=== PATIENT | female | born 2005 | race Caucasian/White ===

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

== ENCOUNTER 2025-01-10 20:09 | Emergency (ER) | payer OTHER, SELFPAY ==
--- OUTSIDE RECORDS SUMMARY | 2024-09-21 04:00 | XMS_ITS | Continuity of Care Document ---
Author Organization [employer] Address [address] [place] [address] Phone Care Team Providers Care Concrete Floor Installer Name Role Phone Malini Beal PT Unavailable Unavailable Procedures Procedure Date Therapeutic Activities Neuromuscular Re-Ed Therapeutic Exercise Manual Therapy Therapeutic Activities Neuromuscular Re-Ed Therapeutic Exercise Manual Therapy Therapeutic Activities Neuromuscular Re-Ed Therapeutic Exercise Dry Needling 1-2 muscles Therapeutic Activities Neuromuscular Re-Ed Therapeutic Exercise Manual Therapy Therapeutic Activities Neuromuscular Re-Ed Therapeutic Exercise Manual Therapy Dry Needling 1-2 muscles Therapeutic Activities Neuromuscular Re-Ed Therapeutic Exercise Manual Therapy Therapeutic Activities Neuromuscular Re-Ed Manual Therapy Therapeutic Activities Neuromuscular Re-Ed Therapeutic Exercise Manual Therapy Dry Needling 1-2 muscles Therapeutic Activities Neuromuscular Re-Ed Therapeutic Exercise Manual Therapy PT Evaluation Low Complexity Therapeutic Exercise Advance Directives Directive Yes / No Effective Date File Name No Information Encounters Encounter Description Practice Location Reason(s) For Visit Diagnoses Date Provider Providers Copied on Encounter [facility], [address] [address], [place], [place], [id number], tel:[phone] [place] No Information Ronich Malini. . Referring Provider: Access Direct. [facility], [address] [address], [place], [place], [id number], tel:[phone] [place] No Information Gleich Malini. . Referring Provider: Access Direct. [facility], [address], [place], [place], [id number], tel:[phone] [place] No Information Gleich Malini. . Referring Provider: Access Direct. [facility], [address], [place], [place], [id number], tel:[phone] [place] No Information Gleich Malini. . Referring Provider: Access Direct. [facility], [address] [address], [place], [place], [id number], tel:[phone] [place] No Information Gleich Malini. . Referring Provider: Access Direct. [facility], [address] [facility], [place], [place], [id number], tel:[phone] [place] No Information Gleich Malini. . Referring Provider: Access Direct. [facility], [address], [place], [place], [id number], tel:[phone] [place] No Information Gleich Malini. . Referring Provider: [facility] Direct. [facility], [address] [address], [place], [place], [id number], tel:[phone] [place] No Information Emigdio Nayak. . Referring Provider: [facility] Direct. [facility], [address] [address], [place], [place], [id number], tel:[phone] [place] No Information Emigdio Nayak. . Referring Provider: Access Direct. [facility], [address] [address], [place], [place], [id number], tel:[phone] [place] No Information Emigdio Nayak. . Referring Provider: Access Direct. Family History Family Member Type Diagnosis Age At Onset No Information Payers Payer name Insurance type Covered green party ID Mckaycj abdirahmanmesha(s) Rickchristiansilvia [id number] Social History Type Description Quantity Date Captured Comments Sex Female Smoking Status No Information Chief Complaint And Reason For Visit No Information Reason For Referral Reason For Referral No Information History Of Present Illness Encounter Date Complaint History Of Prese nt Illness No Information Functional Status Date Functional Assessmen t No Information Instructions Date Instruction Additional Infor mation No Information Assessments Type Assessment Date No Information Patient Care Teams Name Effective Dates (start - stop) Status Members No Information
--- OUTSIDE RECORDS SUMMARY | 2024-09-21 04:00 | XMS_ITS | Continuity of Care Document ---
Author Organization [facility] Address [address] [place] [address] Phone Care Team Providers Care Glue Drier Operator Name Role Phone Malini Beal PT Unavailable [...] Diagnoses Date Provider Providers Copied on Encounter [facility], [address] [address], [place], [place], [id number], tel:[phone] [place] No Information Ronich Malini. . Referring Provider: Access Direct. [facility], [address] [address], [place], [place], [id number], tel:[phone] [place] No Information Gleich Malini. . Referring Provider: Access Direct. [facility], [address], [place], [place], [id number], tel:[phone] [place] No Information Gleich Malini. . Referring Provider: Access Direct. [facility], [address], [place], [place], [id number], tel:[phone] [place] No Information Gleich Malini. . Referring Provider: Access Direct. [facility], [address] [address], [place], [place], [id number], tel:[phone] [place] No Information Gleich Malini. . Referring Provider: Access Direct. [facility], [address] [facility], [place], [place], [id number], tel:[phone] [place] No Information Gleich Malini. . Referring Provider: Access Direct. [facility], [address], [place], [place], [id number], tel:[phone] [place] No Information Gleich Malini. . Referring Provider: [facility] Direct. [facility], [address] [address], [place], [place], [id number], tel:[phone] [place] No Information Emigdio Nayak. . Referring Provider: Access Direct. [facility], [address] [address], [place], [place], [id number], tel:[phone] [place] No Information Emigdio Nayak. . Referring Provider: Access Direct. [facility], [address] [address], [place], [place], [id number], tel:[phone] [place] No Information Emigdio Nayak. . Referring Provider: Access Direct. Family History Family Member Type Diagnosis Age At Onset No Information Payers Payer name Insurance type Covered constitution party ID Mckaycj abdirahmanmesha(s) Rickchristiansilvia [id number] Social History Type Description Quantity Date Captured [...]
--- OUTSIDE RECORDS SUMMARY | 2025-01-09 13:15 | XMS_ITS | Encounter Summary ---
Author Organization [facility] Healthcare Address [address] [place] [address] Care Team Providers Care Qualified Craft Worker Electrician Name Role Phone No, Physician Primary Care Provider [phone] Lisa Roth Unavailable [phone] Reason for Visit * Reason Comments PT Treatment * Consultation (Routine) - Authorized Specialty Diagnoses / Procedures Referred By Ella t Referred To Contact Physical Therapy Diagnoses Tear of right acetabular labrum, initial encounter Gael Lynch MD [address] [place] [address] DR [address] [address] Phone: tel: fax: [facility] [address] [place] [address] Phone: tel: fax: Referral ID Status Reason Start Date Expiration Date Visits Requested Visits Authorized [id number] Authorized Specialty Services Required 10/19/2024 11/18/2025 18 60 Encounter Details Date Type Department Care Team (Late st Contact Info) Description 01/09/2025 1:15 PM CDT Therapy [facility] [address] [place] [phone] Selena Hutchison, JOSLYN Tear of acetabular labrum, right, subsequent encounter (Primary Dx) Social History Tobacco Use Types Packs/Day Years Used Date Smoking Tobacco: Never Smokeless Tobacco: Never Alcohol Use Standard Drinks/Week Comments Never 0 (1 standard drink = 0.6 oz pur e alcohol) AUDIT-C Answer Date Recorded Q1: How often do you have a drink containing alcohol? Never 12/13/2024 Q2: How many drinks containi ng alcohol do you have on a typical day when you are drinking? Patient does not drink Q3: How often do you have si x or more drinks on one occasion? Never 12/13/2024 Personal Safety Answer Date Recorded Have you ever been in or are you currently in a harmful physical or emotional relationship or is someone making you feel afraid or unsafe? Denies 10/31/2024 Comments No Sex and Gender Information Value Date Recorded Sex Assigned at Not on file Legal Sex Female 3:41 PM CDT Gender Identity Female 10/04/2024 3:42 PM CDT Sexual Orientation Not on file documented as of this encounter Progress Notes * Selena Hutchison, PT - 01/09/2025 1:15 PM CDT PT Treatment Name: Alyssa Parker Date of : 2005 Age: 19 y.o. Diagnosis: (S73.191D) Tear of acetabular labrum, right, subsequent encounter (primary encounter diagnosis) Referring Provider: Gael Lynch MD Order Date: 10/19/24 POC: Start 11/03/2024 End 11/03/2025 Next Progress Note: 6 of 12 visits (adjusted from previous measures from RTD) RTD 01/24/25 Date of Surgery: 10/31/24 - RIGHT HIP ARTHROSCOPY WITH LABRAL REPAIR AND OSTEOCHONDROPLASTY Date of service: 01/09/2025 SUBJECTIVE Patient arrived with independently. Alyssa reports continued report of mild anterior hip tightness but overall doing well and no increased pain. Pain: The Verbal Numerical Rating Scale is the most commonly used tool to assess pain intensity in children older than 6 years, and adults of any age. Ratin/10 Precautions: See Post-Op Protocol OBJECTIVE / ASSESSMENT Treatment Provided: - Warm up circuit x 2: - 12 lonnie elliptical, lv 1 - Quadruped self mobilization with rockback posterior pull and lateral pull x 5 rounds R hip - Quadruped 3 way hip superset 8 reps clockwise rotation (CARs) + donkey kick + fire hydrant - 1/2 kneeling 8 lbs weight pass x 5 (B) - Step up + Row 10 lbs x 8 (B) - Standing march with hands on wall - npted to avoid terminal hip extension - regressed to IASTM to right anterior thigh with Jairon test stretching - Repeat standing march with hands on wall and cueing for gluteal and core recruitment - Plank on knees 3 x 30 sec - Bridge with hip ADD on 8 inch box x 10 reps - Standing eccentric right march (using hands to raise to 45 deg hip flexion) - Ice and IFC x 10 mins Goal Progress: The following goals are recommended based on the results of this evaluation and may be modified or updated by the treating therapist. Status/Progress: To be met by: The patient will safely ambulate independently for 15 minutes with normalized gait pattern in orderto participate in school and community ambulation. Excellent Progress 12/16/2024 The patient will demonstrate hip ROM within 5 degrees of contralateral limb in order to ambulate, negotiate stairs and squat without limitations and pain. Excellent Progress 12/30/2024 The patient will demonstrate bilateral hip strength to 4+/5 in order to perform stairs. Usulpeowxvt77/15/2025 The patient will complete single leg hop tests with less than a 10% deficit in limb symmetry in order to jump and participate in recreational play activities without limitations and without pain. Progressing 07/05/2025 The patient will demonstrate Y-balance test with a appropriate reach symmetry and composite reach score of greater than 94% in order to tolerate running progression as allowed by post operative protocol. Progressing 03/06/2025 The patient will demonstrate FMS without 0s or asymmetries to improved tolerance to weight trainingas required for return to sport. Progressing 03/06/2025 The patient will report < 10% dysfunction per SUZI for improved tolerance to ADLs. Progressing 05/07/2025 Assessment: Alyssa continues to have soft tissue restriction at her anterior hip healed incision sites. She is challenged with hip neutral extension/posterior pelvic tilt due to some anterior hip tightness or protective spasm. This improves slightly with IASTM techniques and loading eccentrically. Given this continued complaint, she will continue to benefit from skilled physical therapy to improve her tolerance to anterior chain loading as well as her gait patterning. PLAN Plan of Care: Skilled therapy 2 times per week for 12 weeks with plans to taper as needed for 8 months. Home Exercise Program: Yes Access Code: [email or web address] URL: [email or web address] Date: 12/30/2024 Prepared by: Isaías Shultz Program Notes Squat with resistance around thighs: Band around waist pulling you back Exercises - Quadruped Rocking Backward - 1-2 x daily - 7 x weekly - 10 reps - Modified Jairon Stretch - 1-2 x daily - 7 x weekly - 3 sets - 10 breaths hold - Half Kneel Row - 5 x weekly - 2 sets - 10 reps - Step Up - 5 x weekly - 2 sets - 10 reps - Squat with Resistance at Thighs - 7 x weekly - 3 sets - 10 reps - Supine Bridge with Heels on Emirati Ball and Knees Bent - 5 x weekly - 2 sets - 10 reps - Side Plank with Clam - 5 x weekly - 2 sets - 10 reps - Bird Dog - 5 x weekly - 2 sets - 8 reps - Posterior resisted body weight squat x 10 (9 lbs posterior pull) - Split squat mid-range x 10 Accessory: glut press in prone Education: Topic: HEP, Gait mechanics Learner(s) Name(s): n/a Relation to patient: n/a Barriers to Learning: No Barriers Is Neurology Physician Assistant Required: No How does the Learner prefer to learn new concepts: Explanation Readiness to Learn: Acceptance Today's teaching method: explanation, handout, demonstration Response to learning: Verbalized understanding This patient's plan of care and status was discussed with the PT/LABOR RELATIONS ANALYST: no If this is the patient's last visit this will serve as a discharge summary. Start Time: 1324 End Time: 1419 Total Time: 55 minutes Therapeutic Procedures: 45 minutes E-Stim: 10 minutes Selena Hutchison PT, DPT documented in this encounter Plan of Treatment Not on file documented as of this encounter Visit Diagnoses Diagnosis Tear of acetabular labrum, right, subsequent encounter- Primary documented in this encounter Care Teams Qualified Craft Worker Electrician Relationship Specialty Start Date End Date No, Physician PCP - General 10/04/24 Lisa Roth PA [address] [place] [address] [address] [place] [address] Physician Farm Contractor Orthopedic Surgery 10/31/24 documented as of this encounter
--- OUTSIDE RECORDS SUMMARY | 2025-01-09 13:15 | XMS_ITS | Encounter Summary ---
Author Organization [facility] Healthcare Address [address] [place] [address] Care Team Providers Care Marker Delivery Name Role Phone No, Physician Primary Care Provider [phone] Lisa Roth Unavailable [phone] Reason for Visit * Reason Comments PT Treatment * Consultation (Routine) - Authorized Specialty Diagnoses / Procedures Referred By Ella t Referred To Contact Physical Therapy Diagnoses Tear of right acetabular labrum, initial encounter Gael Lynch MD [address] [place] [address] DR [address] B [address] [address] Phone: tel: fax: [facility] [address] [place] [address] Phone: tel: fax: Referral ID Status Reason Start Date Expiration Date Visits Requested Visits Authorized [id number] Authorized Specialty Services Required 10/19/2024 11/18/2025 18 60 Encounter Details Date Type Department Care Team (Late st Contact Info) Description 01/09/2025 1:15 PM CDT Therapy [facility] [address] [place] [phone] Selena Hutchison, JOSLYN Tear of acetabular [...] to 4+/5 in order to perform stairs. Ovwrcalvost61/15/2025 The patient will complete single leg hop [...] Exercise Program: Yes Access Code: [email or web address] URL: [email or web address] Date: 12/30/2024 Prepared by: Isaías Shultz Program [...] reps - Supine Bridge with Heels on [place]ib[place] Ball and Knees Bent - 5 x [...] n/a Barriers to Learning: No Barriers Is Supervisor Soakers Required: No How does the Learner prefer to learn new concepts: Explanation Readiness to Learn: Acceptance Today's teaching method: explanation, handout, demonstration Response to learning: Verbalized understanding This patient's plan of care and status was discussed with the PT/RACKMAN: no If this is the patient's last [...] Primary documented in this encounter Care Teams Marker Delivery Relationship Specialty Start Date End Date No, Physician PCP - General 10/04/24 Lisa Roth PA [address] [place] [address] [address] [place] [address] Physician Rn Concurrent Review Orthopedic Surgery 10/31/24 documented as of this encounter
--- NOTE | ~2025-01-10 | CT_ITS ---
CT abdomen pelvis w con INDICATION:LLQ abdominal pain . COMPARISON: None. TECHNIQUE: Axial images of the abdomen and pelvis were obtained following infusion of 100 mL Isovue 300. Dose optimization technique was utilized. FINDINGS: The lung bases are clear. The liver parenchyma is unremarkable. No intrahepatic mass or ductal dilatation is evident. The gallbladder is unremarkable. The pancreas and spleen are normal in appearance. The adrenal glands are symmetric in size. The kidneys demonstrate symmetric uptake and excretion of contrast. No cystic mass is evident. There is no solid mass. There is no hydronephrosis. Evaluation of the stomach and bowel loops are limited due to lack of oral contrast. Fecal load throughout the colon suggestive of constipation. Appendix is not visualized. Correlate clinically to exclude appendicitis. The bladder and rectum are normal. There is a 6.6 x 4 cm left ovarian cyst. No free intraperitoneal fluid or air is evident. There is no significant retroperitoneal lymphadenopathy. The aorta, visceral vessels and renal arteries demonstrate normal caliber and patency. The lower thoracic and lumbar vertebrae are in normal alignment. IMPRESSION: Marked constipation. Left ovarian cyst measures 6.6 x [address] scans at this facility are performed using low dose modulation techniques as appropriate to perform exam including the following: automated exposure control; use of iterative reconstruction technique; adjustment of the mA and/or kV according to patient size (this includes techniques or standardized protocols for targeted exams where dose is matched to indication/reason for exam). Reviewed, dictated and finalized at location S. IMPRESSION: Marked constipation. Left ovarian cyst measures 6.6 x [address] scans at this facility are performed using low dose modulation techniqu es as appropriate to perform exam including the following: automated exposure c ontrol; use of iterative reconstruction technique; adjustment of the mA and/or kV according to patient size (this includes techniques or standardized protocol s for targeted exams where dose is matched to indication/reason for exam).
[2025-01-10 20:14] VITALS: BP 140/72; PULSE 102; RESP 16; TEMP 36.7; O2SAT 100
--- OUTSIDE RECORDS SUMMARY | 2025-01-10 20:15 | XMS_ITS | Encounter Summary ---
Author Organization [facility] Address [address] [place] [address] Care Team Providers Care Automotive Software Engineer Name Role Phone Unavailable Primary Care Provider Unavailabl e Encounter Details Date Type Department Care Team (Late st Contact Info) Description 12/28/2006 [place] Conversion Encounter [facility] Social History Tobacco Use Types Packs/Day Years Used Date Smoking Tobacco: Never Assessed Comments Unknown Sex and Gender Information Value Date Recorded Sex Assigned at Not on file Legal Sex Female 8:24 PM CDT Gender Identity Not on file Sexual Orientation Not on file documented as of this encounter Progress Notes * CONVERSION, NESTOR - 09/02/2011 6:09 AM CDT PATIENT'S HOME PHONE: PATIENT'S WORK PHONE: DATE: 12/28/2006. TIME OF CALL: 04:07:49 PM. PATIENT GENERATED CALL: CALL FROM: Patient's mother. 16M/NKDA??? PT BEGAN YESTERDAY WITH A DRY COUGH, 'NICKI TO GET OUT', NO CHEST RATTLE OR WHEEZE....TEMP YESTERDAY WAS 102(?)), TREATING W/ TYLENOL/MOTRIN.....SLIGHT TEMP TODAY, EATING, DRINKING AND SLEEPING OK......ADVISED TO CONTINUE WITH LIQUIDS AND POPSCICLES AND SHOULD CHILD STILL BE ILL IN THE AM OR WORSE, CALL .... The call was taken by Tatiana Cline. Electronically Signed by: BLAKE Vargas on Thursday, December 28, 2006 Received for:ALLSCRIPTS TEST Sep 02 2011 6:09AM Central Standard Time documented in this encounter Plan of Treatment Not on file documented as of this encounter Visit Diagnoses Not on filedocumented in this encounter
--- OUTSIDE RECORDS SUMMARY | 2025-01-10 20:15 | XMS_ITS | Encounter Summary ---
Author Organization [facility] Address [address] [place] [address] Care Team Providers Care Retail Clerk Name Role Phone Unavailable Primary Care Provider Unavailabl e Encounter Details Date Type Department Care Team (Late st Contact Info) Description 08/13/2006 [place] Conversion Encounter [facility] Social History Tobacco Use Types Packs/Day Years Used Date Smoking Tobacco: Never Assessed Comments Unknown Sex and Gender Information Value Date Recorded Sex Assigned at Not on file Legal Sex Female 8:24 PM CDT Gender Identity Not on file Sexual Orientation Not on file documented as of this encounter Progress Notes * CONVERSION, MERIDIAN - 09/02/2011 6:09 AM CDT ACCOMPANIED BY: Mother. The patient presents for a 12 month - well child exam. CURRENT HEALTH HABITS: DIET: The child is being fed Nestle Good Start Formula, the child continues to use a bottle to drink, the child is starting to use a cup to drink. Juice, diluted 50/50, is occasionally part of the child's liquid diet. The child's solid food diet includes table food, fruits, vegetables. no meats BOWELS: Normal appearing stools. The child has stools 2-3 times per day. URINATION: Has at least 5-6 wet diaper changes per day. SLEEP: The sleeps in a crib. The child sleeps 11 hours at night. The child takes naps, The child naps for 1 1/2 hours. OTHER: The family feels that there are no visual or hearing problems. DEVELOPMENTAL/BEHAVIORAL: (DELAYED, BELOW 12 MONTH LEVEL): (GROSS MOTOR) UNABLE TO TAKE STEPS ALONE, (DELAYED GROSS MOTOR) UNABLE TO WALK, EVEN WITH HELP, (DELAYED LANGUAGE) UNABLE TO SPEAK TWO MEANINGFUL WORDS. ALLERGIES: NKDA MEDICATIONS: NO MEDS, status: NEW HISTORY, 2005. VITALS: WEIGHT: [id number]. LENGTH: 30 1/4in. HEAD CIRCUMFERENCE: 49.5cm. CHIEF COMPLAINT: The has ear symptoms, runny nose. ear pulling Lt ear The patient's screening for lead and TB has been updated and the patient is still not at risk for either. The patient was checked in by Neena Dejesus CMA. GENERAL: Healthy appearing, alert, normally nourished, developmentally normal and in no acute distress. PHYSICAL EXAMINATION: GEN: Alert, appropriate for age. EYES: No discharge, conjunctivae clear. ENMT: Tympanic membranes clear. Hearing normal. Pharynx clear. Fair dentition. NECK: Supple, without lymphadenopathy, no thyroid enlargement. RESP: Clear to auscultation. Normal respiratory effort. CV: Regular rate and rhythm, no murmur. CHEST/BREAST: Normal to inspection and palpation. GI: Soft, non-tender, without masses. Bowel sounds active. : Normal genitalia. Normal femoral pulses. LYMPHATICS: No lymphadenopathy. M/S: No joint or bone abnormalities seen. No muscle weakness or scoliosis. SKIN:No rashes, normal color. NEURO: No meningeal findings. Reflexes are normal. PSYCHIATRIC: Mood and affect appropriate for age. Upper cuspids are erupting. ASSESSMENT/PLAN: V20.2-ROUTINE INFANT OR CHILD HEALTH CHECK 12 MONTH EXAM ASSESSMENT: Patient demonstrates normal rate of growth. The patient demonstrates normal developmentfor age. The patient is up to date on immunizations. IMMUNIZATION ORDER: Prevnar, Proquad (MMR & Varivax). IMMUNIZATIONS: Measles, Mumps, Rubella, 0.5, MILLILITERS, SUBCUTANEOUS INJECTION, Right Thigh, given by fabian on 08/13/2006; consent form signed, literature given; Varicella (Chicken Pox), 0.5, MILLILITERS, SUBCUTANEOUS INJECTION, Right Thigh, given by fabian on 08/13/2006; consent form signed, literature given; PREVNAR, 0.5, MILLILITERS, INTRAMUSCULAR INJECTION, Left Thigh, given by fabian on 08/13/2006; consent form signed, literature given; ANTICIPATORY CARE: The parent was advised to encouraging cup use and begin weaning child from the bottle, the normal decrease in food intake (finicky eater), table foods, appropriate calcium intake. Return for 15 month well baby visit. Electronically Signed by: Kell Woods M.D. on July Received for:ALLSCRIPTS TEST Sep 02 2011 6:09AM Central Standard Time documented in this encounter Plan of Treatment Not on file documented as of this encounter Visit Diagnoses Not on filedocumented in this encounter
--- OUTSIDE RECORDS SUMMARY | 2025-01-10 20:15 | XMS_ITS | Encounter Summary ---
Author Organization [facility] Address [address] [place] [address] Care Team Providers Care Border Guard Name Role Phone Unavailable Primary Care Provider Unavailabl e Encounter Details Date Type Department Care Team (Late st Contact Info) Description 09/11/2007 [place] Conversion Encounter [facility] Social History [...] CONVERSION, MERIDIAN - 09/02/2011 6:09 AM CDT The patient is accompanied by mother. The patient presents for an illness exam. CHIEF COMPLAINT: COUGH/COLD SXS: The patient has been having nasal congestion, The patient has had a cough for 1 week. SORE THROAT: The patient has had a sore throat for less than 1 day. ALLERGIES: NKDA MEDICATIONS: NO MEDS, status: NEW HISTORY, 2005. VITAL SIGNS: VS-TEMPERATURE: 97.4??f Axillary TESTS IN OFFICE Rapid Strep Antigen is: Pending. The patient was checked in by Lulu Brunner RN. GENERAL: Healthy appearing, alert, normally nourished, developmentally normal and in no acute distress. PHYSICAL EXAM: EYES: CONJUNCTIVAE/LIDS: Conjunctivae and lids appear normal. PUPILS: Pupils equal and normally reactive to light and accommodation. EARS, NOSE, MOUTH AND THROAT: EXTERNAL/ EARS AND NOSE: Overall appearance normal with no scars, lesions or masses. EARS: Tympanic membranes shiny without retraction. Canals unremarkable. Hearing grossly normal. NOSE: No abnormality of the nose or sinuses is noted. ORAL: MODERATE ERYTHEMATOUS OROPHARYNX WITH MODERATE EXUDATE. RESPIRATORY: Clear to auscultation bilaterally. Normal respiratory effort. LYMPHATICS: No lymphadenopathy in the neck, axillae, or groin. ASSESSMENT/PLAN: 463-ACUTE TONSILLITIS ASSESSMENT: MEDICATIONS: AMOXICILLIN ORAL SUSPENSION WHEN RECONSTITUTED 400 MG/5ML, 1.5 TSP TWICE A DAY FOR 10 DAYS, 10 Duration/Days Supply, status: NEW PRESCRIPTION, 09/11/2007. Electronically Signed by: Mehdi Castro M.D. on Tuesday, September 11, 2007 Received for:ALLSCRIPTS TEST Sep 02 2011 6:09AM Central Standard Time * CONVERSION, DIDITANNA - 09/02/2011 6:09 AM CDT ACCOMPANIED BY: Mother. The patient presents for a 2 year - well child exam. CURRENT HEALTH HABITS: DIET: The toddler uses a cup to drink, 2% milk, to 8 ounces/day. Diluted juice is also part of the toddler's daily regular liquid diet. The toddler's regular diet is table food. BOWELS: Normal appearing stools. The child has daily stools. URINATION: Has at least 5-6 diaper changes per day, with several soaked in colorless urine. SLEEP: The sleeps in a crib. The child sleeps 11 hours at night. The child takes naps once aday, The child naps for 1 1/2 hours. OTHER: The family feels that there are no visual or hearing problems. DEVELOPMENTAL/BEHAVIORAL: (NORMAL FOR 24 MONTH LEVEL): (SOCIAL) Brushes teeth; feeds doll; feeds self well with spoon and fork; imitates others; names friend; plays tag; puts on and removes clothing;washes and drys hands. (FINE MOTOR) Exhibits bladder and bowel control; dumps raisins from bottle spontaneously; towers 4 to 6 cubes. (LANGUAGE) Vocabulary is approximately 20 words; can combine words to make a simple phrase; names 6 body parts; points to and names pictures; responds to two-part verbal commands. (GROSS MOTOR) Jumps; kicks a ball; can climb and descend steps alone; throws overhanded. ALLERGIES: NKDA MEDICATIONS: NO MEDS, status: NEW HISTORY, 2005. VITALS: WEIGHT: [id number]. LENGTH: 35 3/4in. HEAD CIRCUMFERENCE: 52cm. CHIEF COMPLAINT: No issues or concerns were raised this visit. The patient was checked in by Krissy Segundo CMA. PHYSICAL EXAM (NORMAL FINDINGS): GENERAL: The patient is awake, alert, and appropriate for age. No acute distress. EYES: Pupils equally round and reactive to light. Extra ocular movement intact. No discharge. Conjunctivae clear. EARS, NOSE, MOUTH, THROAT: Tympanic membranes normal. Hearing grossly normal. Normal nasal passages. Oropharynx clear. Fair dentition. NECK/THYROID: Supple, without lymphadenopathy, no thyroid enlargement. RESPIRATORY: Lungs clear to auscultation bilaterally. Normal respiratory effort. CARDIOVASCULAR: Regular rate and rhythm. No murmur. GASTROINTESTINAL: Abdomen is soft, non-tender, and without masses. Normal active bowel sounds. No hepatosplenomegaly. GENITOURINARY: Normal genitalia. LYMPHATICS: No lymphadenopathy. MUSCULOSKELETAL: No joint or bone abnormalities seen. No muscle weakness or deformities. No scoliosis. SKIN: No rashes. Normal color. No lesions. NEUROLOGICAL: Reflexes are normal. No deficits noted. PSYCHIATRIC: Mood and affect appropriate for age. ASSESSMENT/PLAN: V20.2-ROUTINE OR CHILD HEALTH CHECK ASSESSMENT: 2 YEAR EXAM. Patient demonstrates normal rate of growth. The patient demonstrates normal development for age. The patient is up to date on immunizations. IMMUNIZATION ORDER: Hepatitis A. (Needs VIS) IMMUNIZATIONS: HEPATITIS A, 0.5, MILLILITERS, INTRAMUSCULAR INJECTION, Left Thigh, given by lo on 09/22/2007; consent form signed, literature given; vis given ANTICIPATORY CARE: General interaction between parent and child was discussed, general nutrition, reviewed the indicators of toilet-training readiness that may show at 18 to 24 months, the use of a toothbrush, general parenting skills. Return for yearly well visit. Electronically Signed by: Kell Woods M.D. on Saturday, September 22, 2007 Received for:ALLSCRIPTS TEST Sep 02 2011 6:09AM Central Standard Time documented in this encounter Plan of Treatment Not on file documented as of this encounter Visit Diagnoses Not on filedocumented in this encounter
--- OUTSIDE RECORDS SUMMARY | 2025-01-10 20:15 | XMS_ITS | Encounter Summary ---
Author Organization [facility] Address [address] [place] [address] Care Team Providers Care Metal Sprayer Protective Coating Name Role Phone Unavailable Primary Care Provider Unavailabl e Encounter Details Date Type Department Care Team (Late st Contact Info) Description 2005 [place] Conversion Encounter [facility] Social History [...] - 09/02/2011 6:09 AM CDT ACCOMPANIED BY: Parents. The patient presents for a complete exam. HISTORY: :. HOSPITAL: The was born at [facility]. LABOR & DELIVERY: METHOD OF DELIVERY: Repeat . GESTATION: Full term. APGARS: 9 at one minute and. PROBLEMS AFTER : The had jaundice. LENGTH: 21 inches. WEIGHT: 8 lbs, 12 lbs. CURRENT HEALTH HABITS: FEEDING: The baby nurses less than 10 minutes per breast, every 3 hours. BOWELS: Stools appear mustard like, seedy yellow, soft. The baby has stools with each feeding. URINATION: Has a wet diaper at each feeding. SLEEPING: Normal sleep habits for age.supine DEVELOPMENTAL/BEHAVIORAL: VITALS: WEIGHT: 8lbs2.5oz. LENGTH: 21in. HEAD CIRCUMFERENCE: 36.4cm. CHIEF COMPLAINT: PREVENTIVE HEALTH MAINTENANCE HEIGHT AND WEIGHT Due on 2005 BREAST FEEDING INFO IF REQUIRED Due on 2005 GESTATIONAL AGE? Due on 2005 HOW MANY WET DIAPERS AND STOOLS IN 24 HOURS? Due on 2005 PACKET PROVIDED TO PARENT Due on 2005 TIPP SAFETY HANDOUT PROVIDED TO PARENT/RESPONSIBLE LIBERTARIAN Due on 2005 WEIGHT AT DISCHARGE Due on 2005 WHAT IS THE SLEEP POSITION? Due on 2005 WHICH HOSPITAL WAS ? Due on 2005 The patient was checked in by Taj Nunes RN. GENERAL: Healthy appearing, alert, normally nourished, developmentally normal and in no acute distress. PHYSICAL EXAMINATION: GEN: Alert, appropriate for age. EYES: No discharge, conjuntivae clear. Red reflex. ENMT: Tympanic membranes clear. Hearing appears normal. Pharynx clear. HEAD/NECK: Normocephalic, flat fontanel. Neck supple, without lymphadenopathy, no thyroid enlargement. RESP: Clear to auscultation. Normal respiratory effort. CHEST/BREAST: Normal to inspection and palpation. GI: Soft, non-tender, not distended, kidney, spleen and liver not enlarged, no masses. Bowel sound active. : Normal genitalia. Normal femoral pulses. LYMPHATICS: No lymphadenopathy. M/S: No joint or bone abnormalities seen. No muscle weakness. No hip dysplasia or scoliosis. SKIN: No rashes, normal color. NEURO: No meningeal findings. Reflexes are normal. ASSESSMENT/PLAN: V20.2-ROUTINE INFANT OR CHILD HEALTH CHECK ANTICIPATORY CARE: Anticipatory guidelines were discussed with parent including: allergy prevention, guidance about crying, the usual feeding intervals, injury prevention, securing the baby in car safety restraint seat, the importance of a smoke detector in the home, and sleep practices. Electronically Signed by: Mehdi Castro M.D. on Friday, 2005 Received for:ALLSCRIPTS TEST Sep 02 2011 6:09AM Central Standard Time documented in this encounter Plan of Treatment Not on file documented as of this encounter Visit Diagnoses Not on filedocumented in this encounter
--- OUTSIDE RECORDS SUMMARY | 2025-01-10 20:15 | XMS_ITS | Encounter Summary ---
Author Organization [facility] Address [address] [place] [address] Care Team Providers Care Order Manager Name Role Phone Unavailable Primary Care Provider Unavailabl e Encounter Details Date Type Department Care Team (Late st Contact Info) Description 11/14/2006 [place] Conversion Encounter [facility] Social History [...] 09/02/2011 6:09 AM CDT ACCOMPANIED BY: Parents. CURRENT HEALTH HABITS: DIET: The child is now drinking whole milk, to 12 ounces/day, the child uses a cup to drink. Juice is also part of the child's regular liquid diet. The child's solid food diet includes table food. BOWELS: Normal appearing stools. Stools are normal in frequency. 2bm URINATION: Has at least 5-6 wet diaper changes per day. SLEEP: The child sleeps 11 hours at night. OTHER: The family feels that there are no visual or hearing problems. DEVELOPMENTAL/BEHAVIORAL: (NORMAL FOR 15 MONTH LEVEL): (SOCIAL) Drinks from cup, feeds self with fingers, plays ball, indicates wants by pointing and grunting, uses a spoon to eat, but is messy. (FINE MOTOR) Scribbles spontaneously, Towers two cubes. (LANGUAGE) Speaks jargon, has a three to six word vocabulary other than Mama and understands simple commands. (GROSS MOTOR) Crawls up steps, walks alone and walks well. ALLERGIES: NKDA MEDICATIONS: NO MEDS, status: NEW HISTORY, 2005. VITALS: WEIGHT: 23lbs6.5oz. LENGTH: 32in. HEAD CIRCUMFERENCE: 50.25cm. CHIEF COMPLAINT: No issues or concerns were raised this visit. The patient was checked in by Krissy Segundo CMA. GENERAL: Healthy appearing, alert, normally nourished, developmentally normal and in no acute distress. PHYSICAL EXAM (NORMAL FINDINGS): GENERAL: The patient [...] bowel sounds. No hepatosplenomegaly. GENITOURINARY: Normal genitalia. Normal femoral pulses. LYMPHATICS: No lymphadenopathy. MUSCULOSKELETAL: No joint or bone abnormalities seen. No muscle weakness or deformities. SKIN: No rashes. Normal color. No lesions. NEUROLOGICAL: Reflexes are normal. No deficits noted. PSYCHIATRIC: Mood and affect appropriate for age. ASSESSMENT/PLAN: V20.2-ROUTINE OR CHILD HEALTH CHECK ASSESSMENT: WELL CHILD EXAM. Patient demonstrates normal rate of growth. The patient demonstrates normal development for age. The patient is up to date on immunizations. IMMUNIZATION ORDER: Tri-hibit. IMMUNIZATIONS: DPT HIB/TRIHIBID, 0.5, MILLILITERS, INTRAMUSCULAR INJECTION, Left Thigh, given by minh on 11/14/2006; consent form signed, literature given; ANTICIPATORY CARE: Anticipatory guidelines were discussed with parent including: allergy prevention, injury prevention, fishman and scalds, the use of car safetyrestraint seat, choking, door/cabinet locks, protection from hot liquids, moving machinery, plastic bags and falls, never leave unattended, supervise outside play, phone number for Poison Control Center, poison-proof home, the importance ofsmoke detectors, water safety, parent/child interaction, the importance of play, reading, singing and talking with the child, medication safety, avoidance of bottles in bed, honey and peanut butter, eating with the family, fluoride supplements, self-feeding, consistency between parents, discipline,praise, remove temptations, sleep practices, childcare, toilet- training and weaning from bottles. Electronically Signed by: Mehdi Castro M.D. on Tuesday, November 14, 2006 Received for:ALLSCRIPTS TEST Sep 02 2011 6:09AM Central Standard Time documented in this encounter Plan of Treatment Not on file documented as of this encounter Visit Diagnoses Not on filedocumented in this encounter
--- OUTSIDE RECORDS SUMMARY | 2025-01-10 20:15 | XMS_ITS | Encounter Summary ---
Author Organization [facility] Address [address] [place] [address] Care Team Providers Care Suction Plate Roller Hand Name Role Phone Unavailable Primary Care Provider Unavailabl e Encounter Details Date Type Department Care Team (Late st Contact Info) Description 05/21/2006 [place] Conversion Encounter [facility] DEPT Social History [...] BY: Mother. The patient presents for a 9 month - well child exam. CURRENT HEALTH HABITS: DIET: The is on Nestle Good Start formula, 22 ounces/day, 24 ounces/day, the baby continues to use a bottle to drink. The baby's solid food diet consists of stage 3 dinners, started eating stage 3 fruits, stage 3 vegetables, oatmeal.and rice cereal BOWELS: Normal appearing stools. The child has stools 2-3 times per day. URINATION: Has at least 5-6 diaper changes per day, with several soaked in colorless urine. SLEEP: The child sleeps 10 hours at night, to 11 hours at night. The child takes naps twice a day, The child naps for 1 hour.each DEVELOPMENTAL/BEHAVIORAL: (NORMAL FOR 9 MONTH LEVEL): (SOCIAL) Can use a cup to drink, holds own bottle to feed, plays peek-a-white, waves bye-bye, (FINE MOTOR) Looks for hidden objects, has pincher grasp, (LANGUAGE) Can speak single meaningful words, verbalizes syllables, (DELAYED GROSS MOTOR) UNABLE TO CRAWL, CREEP, OR CRUISE, (DELAYED GROSS MOTOR) UNABLE TO MOVE SELF IN AND OUT OF SITTING POSITION, (DELAYED GROSS MOTOR) UNABLE TO STAND, EVEN HOLDING ON. ALLERGIES: NKDA MEDICATIONS: NO MEDS, status: NEW HISTORY, 2005. VITALS: WEIGHT: [id number]. LENGTH: 29 1/4in. HEAD CIRCUMFERENCE: 48.8cm. PREVENTIVE HEALTH MAINTENANCE POISON CPNTROL INFORMATION Due on 05/14/2006 Completed. Last action on 05/21/2006 CHIEF COMPLAINT: No issues or concerns were raised. The patient was checked in by Neena Flynn CMA. GENERAL: Healthy appearing, alert, normally nourished, [...] PSYCHIATRIC: Mood and affect appropriate for age. Although HC large, mom reports sister was the same. No developmental problems to raise concern. AFOF. Will keep an eye on it. ASSESSMENT/PLAN: V20.2-ROUTINE OR CHILD HEALTH CHECK ASSESSMENT: Patient demonstrates normal rate of growth. The patient demonstrates normal developmentfor age. The patient is up to date on immunizations. IMMUNIZATION ORDER: Prevnar. IMMUNIZATIONS: PREVNAR, 0.5, MILLILITERS, INTRAMUSCULAR INJECTION, Left Thigh, given by stepcarlito on 05/21/2006; Parent/Guardian: mom, consent form signed, literature given; ANTICIPATORY CARE: General injury prevention was discussed, encouraging cup use and begin weaning child from the bottle, table foods. Return for 12 month well baby visit. Electronically Signed by: Kell Woods M.D. on May Received for:ALLSCRIPTS TEST Sep 02 2011 6:09AM Central Standard Time * NATHANAEL RUCKER - 09/02/2011 6:09 AM CDT PATIENT'S HOME PHONE: PATIENT'S WORK PHONE: DATE: 06/10/2006. TIME OF CALL: 04:30:50 PM. AGE: 10 months. CHEST CONGESTION, OCC COUGH, SL CLEAR RUNNY NOSE, NO FEVER-CAN GIVE ROBITUSSIN PED COUGH AND COLD?-ALSO WOULD NEED A DOSE. PLEASE CALL PATIENT GENERATED CALL: CALL FROM: Patient's mother. The call was taken by Lucy. NURSE'S NOTES: Neena Dejesus CMA spoke with the parent. spoke with mom did give her right dosage for Robitussin Ped cough and cold The call was returned by Neena Dejesus CMA. Electronically Signed by: Mehdi Castro M.D. on Monday, June 12, 2006 Received for:ALLSCRIPTS TEST Sep 02 2011 6:09AM Central Standard Time documented in this encounter Plan of Treatment Not on file documented as of this encounter Visit Diagnoses Not on filedocumented in this encounter
--- OUTSIDE RECORDS SUMMARY | 2025-01-10 20:15 | XMS_ITS | Encounter Summary ---
Author Organization [facility] Address [address] [place] [address] Care Team Providers Care Wood Heel Attacher Name Role Phone Unavailable Primary Care Provider Unavailabl e Encounter Details Date Type Department Care Team (Late st Contact Info) Description 07/05/2007 [place] Conversion Encounter [facility] Social History [...] CHIEF COMPLAINT: COUGH/COLD SXS: The patient has had a cough for 4 days, the cough is wet, The patient has been having a runny nose for 4 days, drainage is clear. per mom thick junky sounding cough (sister tested positive for strep yesterday at [facility]). ALLERGIES: NKDA MEDICATIONS: NON-ASPIRIN CHILDRENS ORAL SUSPENSION 160 MG/5ML, status: NEW HISTORY, 07/05/2007. VITAL SIGNS: VS-TEMPERATURE: 97.6??f Axillary VS-WEIGHT: [id number] TESTS IN OFFICE Rapid Strep Antigen is: POSITIVE.(weak) The patient was checked in by Krissy Rich LPN. GENERAL: Healthy appearing, alert, normally nourished, developmentally normal and in no acute distress. PHYSICAL EXAM: EARS, NOSE, MOUTH AND THROAT: EARS: Tympanic membranes shiny without retraction bilaterally. ORAL: Posterior pharynx normal. RESPIRATORY: MOIST RALES HEARD THROUGHOUT BOTH LUNG ALVARADO, MILD EXPIRATORY WHEEZE WITH FORCED EXPIRATION HEARD THROUGHOUT BOTH LUNG ALVARADO. CARDIOVASCULAR: CARDIAC: Regular rate and rhythm with no murmurs, gallops, rubs or abnormal heart sounds. LYMPHATICS: No lymphadenopathy noted in either anterior cervical chain. ASSESSMENT/PLAN: 466.0-ACUTE BRONCHITIS MEDICATIONS: ZITHROMAX ORAL SUSPENSION WHEN RECONSTITUTED 100 MG/5ML MILLILITERS, 6 ml po today, then 3 ml po QDx 4 days., 20 Dispensed, 10 Duration/Days Supply, status: NEW PRESCRIPTION, 07/05/2007. 034.0-STREPTOCOCCAL SORE THROAT ASSESSMENT: Will be covered by the zithromax. I explained to mom that the strep was probably still incubating and not likely the cause of her other symptoms, but she will be treated for the strep as well. Patient is to return on an as needed basis or to call with concerns or changes in condition. Followup later this week if cough not significantly improved. Electronically Signed by: Kell Woods M.D. on Thursday, July 05, 2007 Received for:ALLSCRIPTS TEST Sep 02 2011 6:09AM Central Standard Time documented in this encounter Plan of Treatment Not on file documented as of this encounter Visit Diagnoses Not on filedocumented in this encounter
--- OUTSIDE RECORDS SUMMARY | 2025-01-10 20:15 | XMS_ITS | Encounter Summary ---
Author Organization [facility] Address [address] [place] [address] Care Team Providers Care Transit Coach Operator Name Role Phone Unavailable Primary Care Provider Unavailabl e Encounter Details Date Type Department Care Team (Late st Contact Info) Description 2005 [place] Conversion Encounter [facility] Social History Tobacco Use Types Packs/Day Years Used Date Smoking Tobacco: Never Assessed Comments Unknown Sex and Gender Information Value Date Recorded Sex Assigned at Not on file Legal Sex Female 8:24 PM CDT Gender Identity Not on file Sexual Orientation Not on file documented as of this encounter Progress Notes * NESTOR RUCKER - 09/02/2011 6:09 AM CDT PATIENT'S HOME PHONE: [phone] PATIENT'S WORK PHONE: PRACTICE GENERATED CALL: The call was made by MICHELLE Scales. SPOKE TO: Patient's mother. REASON FOR CALL: FOLLOW UP: Called to check on patient status.Fup on the PKU Called and asked her to go to the nursery for a repeat PKU and to go [email or web address] Electronically Signed by: Mehdi Castro M.D. on Thursday, 2005 Received for:ALLSCRIPTS TEST Sep 02 2011 6:09AM Central Standard Time documented in this encounter Plan of Treatment Not on file documented as of this encounter Visit Diagnoses Not on filedocumented in this encounter
--- OUTSIDE RECORDS SUMMARY | 2025-01-10 20:15 | XMS_ITS | Encounter Summary ---
Author Organization [facility] Address [address] [place] [address] Care Team Providers Care Science Consultant Name Role Phone Unavailable Primary Care Provider Unavailabl e Encounter Details Date Type Department Care Team (Late st Contact Info) Description 10/09/2006 [place] Conversion Encounter [facility] Social History [...] presents for an illness exam. CHIEF COMPLAINT: FEVER: Maximum temp: 102.0. The fever began 4 days ago. Associated symptoms include: Cough, Runny nose. ALLERGIES: NKDA MEDICATIONS: TYLENOL CHILDREN COLD, status: NEW HISTORY, 10/09/2006. VITAL SIGNS: VS-TEMPERATURE: 98??f Oral The patient was checked in by Krissy Segundo CMA. GENERAL: Healthy appearing, alert, normally nourished, developmentally normal and in no acute distress. PHYSICAL EXAM: EYES: CONJUNCTIVAE/LIDS: Conjunctivae and lids appear normal. EARS, NOSE, MOUTH AND THROAT: EARS: Tympanic membranes shiny without retraction. Canals unremarkable. Hearing grossly normal. NOSE: TURBINATES RED BILATERALLY, TURBINATES SWOLLEN BILATERALLY. ORAL: Inspection of gums, lips, palate, and teeth normal. No scars, lesions, or masses. Oral mucosaunremarkable with non-inflamed posterior pharynx. RESPIRATORY: Clear to auscultation bilaterally. Normal respiratory effort. LYMPHATICS: No lymphadenopathy in the neck, axillae, or groin. ASSESSMENT/PLAN: 460-ACUTE NASOPHARYNGITIS (COMMON COLD) ASSESSMENT: The patient was instructed to use OTC medication as needed for symptoms, drink plenty of fluids, and rest. The patient is advised to treat congestion with OTC medication. The patient was instructed to treat the cough with OTC medication. The patient was advised to use an expectorant. The patient was advised to treat the fever with OTC medication. Electronically Signed by: Mehdi Castro M.D. on Monday, October 09, 2006 Received for:ALLSCRIPTS TEST Sep 02 2011 6:09AM Central Standard Time * CONVERSION, NATHANAEL - 09/02/2011 6:09 AM CDT The patient is accompanied by father. The patient presents for an illness exam. CHIEF COMPLAINT: RASH: The patient has had a rash for less than 1 day. The patient's rash is on the chest, on the abdomen. The patient's rash is blotchy, red, spreading. ALLERGIES: NKDA MEDICATIONS: NO MEDS, status: NEW HISTORY, 2005. VITAL SIGNS: VS-TEMPERATURE: 97.5??f Axillary VS-WEIGHT: 23lbs1.5oz The patient was checked in by Krissy Rich LPN. PHYSICAL EXAM: EYES: CONJUNCTIVAE/LIDS: Conjunctivae and lids appear normal. PUPILS: Pupils equal and normally reactive to light and accommodation. EARS, NOSE, MOUTH AND THROAT: EXTERNAL/ EARS AND NOSE: Overall appearance normal with no scars, lesions or masses. EARS: Tympanic membranes shiny without retraction. Canals unremarkable. Hearing grossly normal. NOSE: TURBINATES RED BILATERALLY, TURBINATES SWOLLEN BILATERALLY. ORAL: Inspection of gums, lips, palate, and teeth normal. No scars, lesions, or masses. Oral mucosaunremarkable with non-inflamed posterior pharynx. RESPIRATORY: Clear to auscultation bilaterally. Normal respiratory effort. SKIN: RASH: DESCRIPTION: The rash is maculopapular. LOCATION: Diffuse. ASSESSMENT/PLAN: 057.9-UNSPECIFIED VIRAL EXANTHEM ASSESSMENT: SX CARE Electronically Signed by: Mehdi Castro M.D. on Thursday, October 12, 2006 Received for:ALLSCRIPTS TEST Sep 02 2011 6:09AM Central Standard Time documented in this encounter Plan of Treatment Not on file documented as of this encounter Visit Diagnoses Not on filedocumented in this encounter
--- OUTSIDE RECORDS SUMMARY | 2025-01-10 20:15 | XMS_ITS | Encounter Summary ---
Author Organization [facility] Address [address] [place] [address] Care Team Providers Care Social Welfare Research Worker Name Role Phone Unavailable Primary Care Provider Unavailabl e Encounter Details Date Type Department Care Team (Late st Contact Info) Description 07/17/2007 [place] Conversion Encounter [facility] Social History [...] presents for an illness exam. CHIEF COMPLAINT: dad and sister have had positive strep in the last 2 months COUGH/COLD SXS: The patient has had a cough for 2 days, the cough is wet, The patient has been having a runny nose for 1 day. SORE THROAT: The patient has had a sore throat for 2 days. ALLERGIES: NKDA MEDICATIONS: NON-ASPIRIN CHILDRENS ORAL SUSPENSION 160 MG/5ML, status: NEW HISTORY, 07/05/2007. TESTS IN OFFICE Rapid Strep Antigen is: Negative. The patient was checked in by Lulu Brunner RN. GENERAL: Healthy appearing, alert, normally nourished, developmentally normal and in no acute distress. PHYSICAL EXAM: EARS, NOSE, MOUTH AND THROAT: EARS: Tympanic membranes shiny without retraction bilaterally. ORAL: The tonsils are not erythematous, Tonsils are 3+. RESPIRATORY: Both lungs normal to auscultation. CARDIOVASCULAR: CARDIAC: Regular rate and rhythm with no murmurs, gallops, rubs or abnormal heart sounds. LYMPHATICS: No lymphadenopathy noted in either anterior cervical chain. ASSESSMENT/PLAN: 460-ACUTE NASOPHARYNGITIS (COMMON COLD) ASSESSMENT: The patient was instructed to use OTC medication as needed for symptoms, drink plenty of fluids, and rest. Patient is to return on an as needed basis or to call with concerns or changes in condition. Electronically Signed by: Kell Woods M.D. on Thursday, July 17, 2007 Received for:ALLSCRIPTS TEST Sep 02 2011 6:09AM Central Standard Time documented in this encounter Plan of Treatment Not on file documented as of this encounter Visit Diagnoses Not on filedocumented in this encounter
--- OUTSIDE RECORDS SUMMARY | 2025-01-10 20:15 | XMS_ITS | Encounter Summary ---
Author Organization [facility] Address [address] [place] [address] Care Team Providers Care Cook Ice Cream Name Role Phone Unavailable Primary Care Provider Unavailabl e Encounter Details Date Type Department Care Team (Late st Contact Info) Description 03/18/2006 [place] Conversion Encounter [facility] Social History Tobacco Use Types Packs/Day Years Used Date Smoking Tobacco: Never Assessed Comments Unknown Sex and Gender Information Value Date Recorded Sex Assigned at Not on file Legal Sex Female 8:24 PM CDT Gender Identity Not on file Sexual Orientation Not on file documented as of this encounter Progress Notes * CONVERSION, NATHANAEL - 09/02/2011 6:09 AM CDT ACCOMPANIED BY: Mother. afebrile. cold sx since thursday. sporadic cough. eating and acting fine. The patient presents for Influenza (6-35 mos) - 2nd dose. 4 weeks ALLERGIES: NKDA IMMUNIZATION SCREENING: The patient has been screened and does not have any contraindications for receiving the flu vaccine today. The patient was checked in by Elizabeth Martinez RN. IMMUNIZATIONS: INFLUENZA 0.25, 0.25, MILLILITERS, INTRAMUSCULAR INJECTION, Left Thigh, given by bhavani on 03/18/2006; consent form signed, literature given; PT INSTRUCTIONS: The patient (patient's parent) was advised about typical immunization reactions including fever within next 48 hours (to be treated with Tylenol), localized redness or swelling at the site of injection (to be treated with Tylenol and application of (wrapped) ice to minimize swelling. Advised of possibility of rashes and timing. Advised of reasons to be concerned and to call the office. Received for:ALLSCRIPTS TEST Sep 02 2011 6:09AM Central Standard Time documented in this encounter Plan of Treatment Not on file documented as of this encounter Visit Diagnoses Not on filedocumented in this encounter
--- OUTSIDE RECORDS SUMMARY | 2025-01-10 20:15 | XMS_ITS | Encounter Summary ---
Author Organization [facility] Address [address] [place] [address] Care Team Providers Care Brush Holder Assembler Name Role Phone Unavailable Primary Care Provider Unavailabl e Encounter Details Date Type Department Care Team (Late st Contact Info) Description 2005 [place] Conversion Encounter [facility] DE[facility] Social [...] - 09/02/2011 6:09 AM CDT The patient presents for a 4 month - well child exam. Is on Good Start formula, 4-6 ounces every 4 hours No solids yet Sleeps 7 hours nightly and up once to eat then back down for 3-4 hours DEVELOPMENTAL/BEHAVIORAL: (NORMAL FOR 4 MONTH LEVEL): (SOCIAL) Initiates contact by smiling, cooing, laughing or squealing, smiles spontaneously, talks to self in mirror. (FINE MOTOR) Follows parentsand objects with eyes through 180??, scratches at clothes, opens hands while atrest, can play with hands and hold a rattle. (LANGUAGE) Laughs, squeals and takes the initiative in vocalizing and babbling at others. (GROSS MOTOR) Holds head high and raises body on hands when lying prone. Maintains steady head control when held upright, no head lag when pulled to sit. Rolls from prone to supine position. ALLERGIES: NKDA MEDICATIONS: NO MEDS, status: NEW HISTORY, 2005. VITALS: WEIGHT: 16lbs8.5oz. LENGTH: 26.75in. HEAD CIRCUMFERENCE: 44.8cm. CHIEF COMPLAINT: No issues or concerns were raised. The patient was checked in by Nik Haas CMA. GENERAL: Healthy appearing, alert, normally nourished, [...] meningeal findings. Reflexes are normal. ASSESSMENT/PLAN: V20.2-ROUTINE OR CHILD HEALTH CHECK 4 MONTH EXAM ASSESSMENT: Patient demonstrates normal rate of growth. The patient demonstrates normal developmentfor age. The patient is up to date on immunizations. 695.89-OTHER SPECIFIED ERYTHEMATOUS CONDITION Comments: INTERTRIGO MEDICATIONS: NYSTATIN POWDER GRAMS, Topically to affected areas bid - tid, 15 Dispensed, 2 Fills, status: NEW PRESCRIPTION, 2005. IMMUNIZATION ORDER: Pediarix, Pedvax Hib, Prevnar. IMMUNIZATIONS: DTAP. IPV, HEP B, 0.5, MILLILITERS, INTRAMUSCULAR INJECTION, Left Thigh, given by kenyatta on 2005; Parent/Guardian: mom, consent form signed, literature given; PED VAX HIB, 0.5, MILLILITERS, INTRAMUSCULAR INJECTION, Left Thigh, given by kenyatta on 2005; Parent/Guardian: mom, consent form signed, literature given; PREVNAR, 0.5, MILLILITERS, INTRAMUSCULAR INJECTION, Left Thigh, given by kenyatta on 2005; Parent/Guardian: mom, consent form signed, literature given; ANTICIPATORY CARE: Injury prevention was discussed including protecting baby from falls by never leaving the baby unattended on a bed or a table, feeding behaviors, the introduction of solid foods between 4 and 6 months of age, sleep practices. Return for 6 month well baby visit. Electronically Signed by: Kell Woods M.D. on Tuesday, 2005 Received for:ALLSCRIPTS TEST Sep 02 2011 6:09AM Central Standard Time documented in this encounter Plan of Treatment Not on file documented as of this encounter Visit Diagnoses Not on filedocumented in this encounter
--- OUTSIDE RECORDS SUMMARY | 2025-01-10 20:15 | XMS_ITS | Clinical Summary ---
Author Organization [facility] Address [address] [place] [address] Care Team Providers Care Casting Machine Operator Name Role Phone Unavailable Primary Care Provider Unavailabl e Immunizations Immunization Administration Dates Next Due DTAP 10/24/2010 DTAP/HEP B/IPV Combined 02/18/2006,2005, DTAP/HIB 11/14/2006 FLUMIST Intranasal Influenza 02/06/2010,01/05/20 10 HEP A 11/07/2008,09/22/2007 Haemophilus B Polysac Conj Vac Im 2005,03/2005 IPV 10/24/2010 Influenza Virus Vaccine, Split 03/18/2006,2005 MMR 10/24/2010,08/13/2006 Pneumovax 23 08/13/2006,200 7,2005,200 6 Varicella 10/24/2010,08/13/2006 Social History Tobacco Use Types Packs/Day Years Used Date Smoking Tobacco: Never Assessed Comments Unknown Sex and Gender Information Value Date Recorded Sex Assigned at Not on file Legal Sex Female 8:24 PM CDT Gender Identity Not on file Sexual Orientation Not on file Last Filed Vital Signs Vital Sign Reading Time Taken Comments Blood Pressure 110/72 11/11/2012 3:55 PM CDT Pulse - - Temperature 36.2 C (97.2 F) 09/15/2011 11:13 AM CDT Respiratory Rate - - Oxygen Saturation - - Inhaled Oxygen Concentration - - Weight 30.6 kg (67 lb 6.1 oz) 11/11/2012 3:55 PM CDT Height 130.2 cm (4' 3.25) 11/11/2012 3:55 PM CD T Body Mass Index 18.04 11/11/2012 3:55 PM CDT Body Mass Index Percentile 87.15% 11/11/2012 3:5 5 PM CDT Growth Chart: CDC (Girls, 2- 20 Years) Plan of Treatment Health Maintenance Due Date Last Done Comments Annual Physical 2005 DTaP,Tdap,and Td Vaccines (6 - Tdap) 2016 10/24/2010, 11/14/2006, 02/18/2006, Additional history exists Annual Depression Screen 2017 HPV Vaccines (1 - 3-dose series) 2020 Meningococcal B Vaccine (1 of 2 - Standard) 2021 COVID-19 Vaccine (1 - season) 2024 Influenza Vaccine (#1) 2024 0, 01/04/2010, 03/18/2006, Additional history exists RSV Vaccines: ; 60+ Years (1 - 1-dose 75+ series) 2080 Hepatitis B Vaccines Completed 02/18/2006, 2005, 2005 Pneumococcal Vaccine: to 49yrs Aged Out 08/13/2006, 05/21/2006, 2005, Additional history exists No longer eligible based on patient's age to complete this topic Hepatitis A Vaccines Completed 11/07/2008, 09/22/19 08 MMR Vaccines Completed 10/24/2010, 08/13/2006 Varicella Vaccines Completed 10/24/2010, 08/13/2006 Meningococcal Vaccine Aged Out No elke genet eligible based on patient's age to complete this topic
--- OUTSIDE RECORDS SUMMARY | 2025-01-10 20:15 | XMS_ITS | Clinical Summary ---
Author Organization [facility] Medical Office Building [address] Address [address] [place] [address] Care Team Providers Care Core Stripper Name Role Phone No, Physician Primary Care Provider [phone] Lisa Roth Unavailable [phone] Allergies No known active allergies Medications Dulera 200-5 mcg/actuation inhaler 4 Active albuterol HFA (PROVENTIL HFA,VENTOLIN HFA,PROAIR HFA) 90 mcg/actuation inhaler Inhale 1 puff as needed for wheezing 1 Active ascorbic acid (VITAMIN C) 500 mg tablet,chewable Take 1 tablet/chew tab (500 mg total) by mouth 2 (two) times a day 60 tablet/chew tab 5 Active cholecalciferol (Vitamin D3) 2000 unit tablet Take 1 tablet (2,000 Units total) by mouth daily 30 tablet 5 Active naproxen (NAPROSYN) 500 mg tablet Take 1 tablet (500 mg total) by mouth 2 (two) times a day with meals 112 tablet 5 Active Additional Information Patient not taking.Reported on 12/13/2024 Active Problems Problem Noted Date Diagnosed Date Femoroacetabular impingement of right hip 2024 Tear of right acetabular labrum 10/21/2024 Encounters Date Type Department Care Team Description 01/09/2025 1:15 PM CDT Therapy [facility] [address] [place] [phone] Foster, Selena, PT Tear of acetabular labrum, right, subsequent encounter (Primary Dx) 01/04/2025 Orders Only [facility] [address] [place] [phone] Foster, Selena, PT Tear of acetabular labrum, right, subsequent encounter (Primary Dx) 01/02/2025 7:00 AM CDT Therapy [facility] [address] [place] [phone] Foster, Selena, PT Tear of acetabular labrum, right, subsequent encounter (Primary Dx) 12/30/2024 12:00 PM CDT Therapy [facility] [address] [place] [phone] Foster, Selena, PT Tear of acetabular labrum, right, subsequent encounter (Primary Dx) 12/26/2024 1:15 PM CDT Therapy [facility] [address] [place] [phone] Foster, Selena, PT Tear of acetabular labrum, right, subsequent encounter (Primary Dx) 12/23/2024 7:00 AM CDT Therapy [facility] [address] [place] [phone] Foster, Selena, PT Tear of acetabular labrum, right, subsequent encounter (Primary Dx) 12/15/2024 1:15 PM CDT Therapy [facility] [address] [place] [phone] Randi Fiore, PT Tear of acetabular labrum, right, subsequent encounter (Primary Dx) 12/13/2024 3:30 PM CDT Office Visit [facility] Orthopedic and Sports Medicine [address] [place] [phone] Lisa Roth PA S/P hip arthroscopy (Primary Dx); Tear of right acetabular labrum, sequela 12/12/2024 1:15 PM CDT Therapy [facility] [address] [place] [phone] Randi Fiore, PT Tear of acetabular labrum, right, subsequent encounter (Primary Dx) 12/08/2024 11:30 AM CDT Therapy [facility] [address] [place] [phone] Randi Fiore, PT Tear of acetabular labrum, right, subsequent encounter (Primary Dx) 12/05/2024 1:15 PM CDT Therapy [facility] [address] [place] [phone] Selena Hutchison, PT Tear of acetabular labrum, right, subsequent encounter (Primary Dx) 12/01/2024 1:15 PM CDT Therapy [facility] [address] [place] [phone] Randi Fiore, PT Tear of acetabular labrum, right, subsequent encounter (Primary Dx) 11/29/2024 9:00 AM CDT Therapy [facility] [address] [place] [phone] Selena Hutchison, PT Tear of acetabular labrum, right, subsequent encounter (Primary Dx) 11/24/2024 10:15 AM CDT Therapy [facility] [address] [place] [phone] FosterWaynen, PT Tear of acetabular labrum, right, subsequent encounter (Primary Dx) 11/22/2024 8:30 AM CDT Therapy [facility] [address] [place] [phone] Randi Fiore, PT Tear of acetabular labrum, right, subsequent encounter (Primary Dx) 11/17/2024 1:45 PM CDT Therapy [facility] [address] [place] [phone] Randi Fiore, PT Tear of acetabular labrum, right, subsequent encounter (Primary Dx) 11/15/2024 2:45 PM CDT Office Visit [facility] [address] [place] [phone] Lisa Roth PA S/P hip arthroscopy (Primary Dx); Tear of right acetabular labrum, sequela 11/14/2024 1:15 PM CDT Therapy [facility] [address] [place] [phone] Randi Fiore, PT Tear of acetabular labrum, right, subsequent encounter (Primary Dx) 11/10/2024 9:00 AM CDT Therapy [facility] [address] [place] [phone] Randi Fiore, PT Tear of acetabular labrum, right, subsequent encounter (Primary Dx) 11/08/2024 2:15 PM CDT Therapy [facility] [address] [place] [phone] Randi Fiore, PT Tear of acetabular labrum, right, subsequent encounter (Primary Dx) 11/04/2024 12:00 PM CDT Therapy [facility] [address] [place] [phone] Randi Fiore, PT Tear of acetabular labrum, right, subsequent encounter (Primary Dx) 11/04/2024 Plan of Care Documentation [facility] [address] [place] [phone] 11/03/2024 9:00 AM CDT Therapy [facility] [address] [place] [phone] Randi Fiore, PT Tear of acetabular labrum, right, subsequent encounter (Primary Dx) 11/01/2024 Telephone [facility] Medical [facility] Orthopedic and Sports Medicine [facility] [place] [phone] Tono Segura ATC 10/31/2024 12:00 PM CDT - 10/31/2024 3:00 PM CDT Surgery [facility] [address] [place] [address] Gael Lynch MD Right hip arthroscopy, with femoroplasty, acetabuloplasty, labral repair 10/31/2024 12:00 PM CDT Anesthesia Event [facility] [address] [place] [address] Grayson Moscoso DO Kory, Christopher James, MD 10/31/2024 10:37 AM CDT - 10/31/2024 5:34 PM CDT Hospital Encounter [facility] [address] [place] [address] Gael Lynch MD Femoroacetabular impingement of right hip [M25.851] (Primary Dx); Tear of right acetabular labrum, initial encounter [S73.191A] Discharge Disposition: Discharge to home or self care 10/27/2024 1:49 PM CDT - 10/27/2024 11:59 PM CDT Hospital Encounter [facility] [address] [place], [place] [phone] Tear of right acetabular labrum, initial encounter; Femoroacetabular impingement of right hip Discharge Disposition: Discharge to home or self care 10/27/2024 Telephone [facility] Orth[facility]ics and Sports Medicine [address] [place] [address] [address] [place] [phone] Gael Lynch MD 10/26/2024 Orders Only [facility] Medicine [address] [place] [address] [address] [place] [address] Gael Lynch MD Femoroacetabular impingement of right hip (Primary Dx) 10/26/2024 Orders Only [facility] [address] [place] [address] [address] [place] [address] Gael Lynch MD Tear of right acetabular labrum, initial encounter (Primary Dx); Femoroacetabular impingement of right hip 10/19/2024 2:22 PM CDT - 10/19/2024 11:59 PM CDT Hospital Encounter [facility] [address] [place] [address] [address] [place] [phone] Discharge Disposition: Discharge to home or self care 10/19/2024 Orders Only [facility] [address] [place] [address] [address] [phone] Gael Lynch MD Labral tear of hip, degenerative (Primary Dx) 10/19/2024 Orders Only [facility] [address] [place] [address] [address] [address] Gael Lynch MD Labral tear of hip, degenerative (Primary Dx); Tear of right acetabular labrum, initial encounter 10/19/2024 Telephone [facility] [address] [place] [address] [address] [phone] Gael Lynch MD Surgical Clearance 10/17/2024 Results Follow-Up [facility] Primary Care at [address] [place] [phone] Ralph Burden DO MRI Hip Arthrogram Right W Contrast 10/14/2024 12:51 PM CDT - 10/14/2024 11:59 PM CDT Hospital Encounter [facility] [address] [place] [phone] Hip pain, chronic, right Discharge Disposition: Discharge to home or self care 10/14/2024 12:51 PM CDT - 10/14/2024 11:59 PM CDT Hospital Encounter [facility] [address] [place] [phone] Hip pain, chronic, right Discharge Disposition: Discharge to home or self care 10/14/2024 Ancillary Procedure [facility] Outside Films from Last 3 Months Surgical History Surgery Date Site/Laterality Comments TONSILLECTOMY WISDOM TOOTH EXTRACTION Medical History Medical History Date Comments Asthma Family History Medical History Relation Name Comments No Known Problems Father No Known Problems Mother Relation Name Status Comments Father Mother Social History Tobacco Use Types Packs/Day Years Used Date Smoking Tobacco: Never Smokeless Tobacco: Never Tobacco Cessation:Counseling Given: Not Answered Alcohol Use Standard Drinks/Week Comments Never 0 [...] PM CDT Sexual Orientation Not on file Obstetrics History Para Term AB IAB SAB Ectopic Multiple Livin g Live Births 0 0 0 0 0 0 0 0 0 0 0 Growth Chart Information Age Height Weight Rzusfk-qgj-qunb th Percentile BMI Percentile Head Circum Head Circum Percentile Date 19 years 167.6 cm (5' 6) 59.4 kg (131 lb) 43.97%* 2024 19 years 167.6 cm (5' 6) 58.1 kg (128 lb) 37.71%* 2024 19 years 167.6 cm (5' 6) 58.2 kg (128 lb 4.9 oz) 38.49%* 2024 19 years 167.6 cm (5' 6) 59.9 kg (132 lb) 46.66%* 2024 * [facility] (Girls, 2-20 Years) Last Filed Vital Signs Vital Sign Reading Time Taken Comments Blood Pressure 115/76 12/13/2024 3:16 PM CDT Pulse 76 12/13/2024 3:16 PM CDT Temperature 35.9 C (96.6 F) 10/31/2024 3:43 PM CDT Respiratory Rate 20 10/31/2024 5:15 PM CDT Oxygen Saturation 100% 10/31/2024 5:15 PM CDT Inhaled Oxygen Concentration - - Weight 59.4 kg (131 lb) 12/13/2024 3:16 PM CDT Height 167.6 cm (5' 6) 12/13/2024 3:16 PM CDT Body Mass Index 21.14 12/13/2024 3:16 PM CDT Plan of Treatment Health Maintenance Due Date Last Done Comments Depression Screening 2005 Hepatitis C Screening 2005 Pneumococcal vaccine <65 (1 of 1 - PPSV23, PCV20, or PCV21) 08/13/2011 08/13/2006, 08/13/2006, 05/21/2006, Additional history exists Regular Well Visit/Exam 18-64 08/13/2023 Influenza Vaccine (#1) 2024 , 04/04/2023, 03/20/2022, Additional history exists DTaP/Tdap/Td Vaccine (7 - Td or Tdap) 11/04/2026 11/04/2016, 10/24/2010, 11/14/2006, Additional history exists Hepatitis B Screening Completed 02/18/2006 , 2005, 2005 Varicella Vaccines Completed 10/24/2010, 08/13/2006 HPV Vaccines Completed 09/01/2017, 11/04/2016 Meningococcal Vaccine Completed 08/27/2022, 017 Meningococcal B Vaccine Completed 08/13/2023, 04/15 Covid-19 Vaccine Completed 02/20/2024, , 04/30/2021, Additional history exists Medical Devices Implanted Type Area Claims Attorney Device Identifier Shelf Expiration Date Model / Serial / Lot [employer] [place] Knotless Tapered Suture Hip Fibertak 1.8mm Ar-[id number] - [id number] Implanted:Qty: 1 on 10/31/2024 by Gael Lynch MD at [facility] Right: Hip [employer] [id number] 05/20/2029 AR-3636H / / [id number] [employer] Natural [place] Knotless Tapered Suture Hip Fibertak 1.8mm Ar-3636h - [id number] Implanted:Qty: 1 on 10/31/2024 by Gael Lynch MD at [facility] Right: Hip [employer] [id number] 05/20/2029 AR-3636H / / [id number] [employer] [place] Knotless Tapered Suture Hip Fibertak 1.8mm Ar-3636h - [id number] Implanted:Qty: 1 on 10/31/2024 by Gael Lynch MD at [facility] Right: Hip [employer] [id number] 05/20/2029 AR-3636H / / [id number] Procedures Procedure Name Priority Date/Time Associated Diagnosis Comments FL FLUOROSCOPY < 1 HOUR IP Routine 10/31/2024 2:47 PM CDT XR HIP RIGHT 1 VIEW IP Routine 10/31/2024 2 :47 PM CDT MT AN ELECTIVE ENDOTRACHEAL AIRWAY Routine 10/31/2024 12:10 PM CDT ARTHROSCOPY HIP 10/31/2024 11:29 AM CDT Femoroacetabular impingement of right hip Tear of right acetabular labrum, initial encounter POCT HCG, URINE Routine 10/31/2024 10:[address] HIPS BILATERAL WO CONTRAST Schedule Routine, Read Routine (OP Routine) 10/27/2024 2:54 PM CDT Tear of right acetabular labrum, initial encounter Femoroacetabular impingement of right hip MRI HIP ARTHROGRAM RIGHT W CONTRAST Schedule CHRISSY, Read CHRISSY (Appt Today, Awaiting Results) 10/14/2024 1:46 PM CDT Hip pain, chronic, right INJECTION HIP RIGHT ARTHRO ONLY Schedule CHRISSY, Read CHRISSY (Appt Today, Awaiting Results) 10/14/2024 1:22 PM CDT Hip pain, chronic, right from Last 3 Months Results * FL Fluoroscopy < 1 Hour (10/31/2024 2:47 PM CDT) Narrative [facility] - 10/31/2024 2:49 PM CDT The images from this study are not interpreted by Radiology. Please refer to the physician's procedure / OR operative note. Gael Lynch MD IMG FLUOROSCOPY PROCEDURES F inal Result [facility] * XR Hip Right 1 View (10/31/2024 2:47 PM CDT) Anatomical Region Laterality Modality Lower Extremities, Hip, Pelvis Right R adio Fluoroscopy 11/01/2024 1:58 PM CDT Narrative 11/01/2024 1:59 PM CDT EXAM DESCRIPTION: 1. XR HIP RIGHT 1 VIEW REASON FOR STUDY: pain Right hip Fl time 24.8 seconds Dose 2.79 mGy FINDINGS: Multiple fluoroscopic images consisting of a single view(s) submitted with comparison 10/27/2024 . Reference air kerma equals 2.79 mGy. Fluoroscopic images demonstrate an in progress right hip intervention . Soft tissue gas is present. IMPRESSION: 1. In progress right hip intervention. This can be correlated with surgical report. THIS IS AN ELECTRONICALLY VERIFIED FINAL REPORT 11/01/2024 1:59 PM - Electronically signed by Ralph Hernandez M.D. MF: [email or web address] Report ID: [id number] Reading Location: [id number] Procedure Note Ralph Hernandez MD - 11/01/2024 EXAM DESCRIPTION: 1. XR HIP RIGHT 1 VIEW REASON FOR STUDY: pain Right hip Fl time 24.8 seconds Dose 2.79 mGy FINDINGS: Multiple fluoroscopic images consisting of a single view(s) submittedwith comparison 10/27/2024 . Reference air kerma equals 2.79 mGy. Fluoroscopic images demonstrate an in progress right hip intervention .Soft tissue gas is present. IMPRESSION: 1. In progress right hip intervention. This can be correlated withsurgical report. THIS IS AN ELECTRONICALLY VERIFIED FINAL REPORT 11/01/2024 1:59 PM - Electronically signed by Ralph Hernandez M.D. MF: [email or web address] Report ID: [id number] Reading Location: [place] [address] [place] Gael Lynch MD IMG XR PROCEDURES Final Resu lt * MT AN ELECTIVE ENDOTRACHEAL AIRWAY (10/31/2024 12:10 PM CDT) Narrative Gael Gayle CRNA - 10/31/2024 12:10 PM CDT Gael Gayle CRNA 10/31/2024 12:10 PM Airway Patient location: OR Urgency: elective Date/time: 10/31/2024 12:06 PM Indications for airway management: anesthesia Difficult airway: no Staff: Placed by: SAFETY SCIENTIST: Gael Gayle CRNA Emergent airway documentation: Risks and benefits discussed: yes Consent obtained: yes Consent given by: patient Airway prep: Preoxygenated: yes Patient position: sniffing MILS maintained throughout: yes Mask difficulty assessment: 1 - vent by mask Spontaneous ventilation during airway: absent Sedation level during airway: GA Final airway details: Final airway type: endotracheal airway Tube type: ETT ETT size: 7.0 mm Cuffed: yes Technique used for successful ETT placement: video laryngoscopy Insertion site: oral Blade type: Ricardo Video blade type: Chu Blade size: 3 Cormack-Lehane (video): grade I - full view of glottis Cuff inflated with: air ETT to teeth: 21 cm Placement verified by: auscultation and CO2 detection Airway secured with: silk tape Number of attempts: 1 Ventilation between attempts: none Planned trial extubation: yes us Grayson Moscoso DO ANESTHESIA ORDERABL ES Final Result * POCT hCG, urine (10/31/2024 10:58 AM CDT) HCG, ur, POC Negative Negative Lot Number [id number] QC Backgroud Clear Acceptable QC Control Line Acceptable Urine 10/31/2024 10:5 8 AM CDT Cristhian Tee MD POINT OF CARE TEST ORD ERABLES Final Result * CT Hips Bilateral WO Contrast (10/27/2024 2:54 PM CDT) Anatomical Region Laterality Modality Hip Bilateral Computed Tomogra phy 10/30/2024 2:43 PM CDT Addenda Addendum by Christina Moore MD on 10/30/2024 3:05 PM CDT Examination: CT hip bilateral without contrast Electronically signed by: Christina Moore M.D. Impressions 10/30/2024 2:43 PM CDT No acute abnormality Electronically signed by: Christina Moore M.D. Narrative 10/30/2024 2:43 PM CDT EXAM: CT CT chest bilateral without contrast HISTORY: Right hip pain COMPARISON: Pelvis x-ray 10/19/2024 FINDINGS: CT of the hips was performed without IV contrast using bone algorithm. Pelvis is of normal morphology. SI joints are symmetric. Hip joints are normal morphology. There is noted joint space narrowing of the right. Acetabular formation bilaterally is normal. There is no focal bone lesion. There is no evidence of joint effusion. The knees are grossly normal morphology. Procedure Note Christina Moore MD - 10/30/2024 EXAM: CT CT chest bilateral without contrast HISTORY: Right hip pain COMPARISON: Pelvis x-ray 10/19/2024 FINDINGS: CT of the hips was performed without IV contrast using bone algorithm. Pelvis is of normal morphology. SI joints are symmetric. Hip joints are normal morphology. There is noted joint space narrowing of the right. Acetabular formation bilaterally is normal. There is no focal bone lesion. There is no evidence of joint effusion. The knees are grossly normal morphology. IMPRESSION: No acute abnormality Electronically signed by: Christina Moore M.D. Gael Lynch MD IMG CT PROCEDURES Edited Res ult - Final * MRI Hip Arthrogram Right W Contrast (10/14/2024 1:46 PM CDT) Anatomical Region Laterality Modality Lower Extremities Right Magnetic Reson ance 10/14/2024 3:07 PM CDT Impressions 10/14/2024 4:01 PM CDT 1. Small nondisplaced labral tear within the right anterior superior labrum at the 2 to 3 o'clock position. 2. No chondrosis within the right hip. Dictated by: Kody Reed M.D. The radiology attending physician has personally reviewed this study, and had reviewed and/or edited this written report and agrees with it. Electronically signed by: Terrence Medina MD Narrative 10/14/2024 4:01 PM CDT EXAMINATION: 1. MRI right hip with contrast HISTORY: Right hip pain TECHNIQUE: An MRI of the right hip and pelvis was performed following the fluoroscopic guided intra-articular injection of 12 mL of a (1:200) dilution of Dotarem in sterile saline and omnipaque 300. Please see separate dictation for details of the procedure. An MR examination was then performed using a multi-coil array. Coronal short TR/TE and fast spin echo images of the entire pelvis were supplemented by small field of view, high resolution images of the hip. The right hip was examined in the transverse, oblique transverse, sagittal and coronal plane with short TR/TE and fast spin echo technique. FINDINGS: No prior comparisons are available. Small nondisplaced labral tear within the anterior superior labrum at the 2 to 3 o'clock position. No focal chondrosis or subchondral edema. No fracture or marrow replacing lesion. There is a physiologic amount of fluid within the left hip joint space Imaged lumbar spine is normal. The sacroiliac joints and pubis symphysis are normal. The bilateral hamstrings, iliopsoas, and gluteal tendons are intact. There is no bursitis. The muscle bulk is normal. Bilateral sciatic nerves are normal. Large left adnexal cyst measuring 6.2 cm with a small amount of adjacent free fluid. Otherwise, the pelvic viscera is normal. No pelvic lymphadenopathy. Procedure Note Terrence Medina MD - 10/14/2024 EXAMINATION: 1. MRI right hip with contrast HISTORY: Right hip pain TECHNIQUE: An MRI of the right hip and pelvis was performed following the fluoroscopic guided intra-articular injection of 12 mL of a (1:200) dilution of Dotarem in sterile saline and omnipaque 300. Please see separate dictation for details of the procedure. An MR examination was then performed using a multi-coil array. Coronal short TR/TE and fast spin echo images of the entire pelvis were supplemented by small field of view, high resolution images of the hip. The right hip was examined in the transverse, oblique transverse, sagittal and coronal plane with short TR/TE and fast spin echo technique. FINDINGS: No prior comparisons are available. Small nondisplaced labral tear within the anterior superior labrum at the 2 to 3 o'clock position. No focal chondrosis or subchondral edema. No fracture or marrow replacing lesion. There is a physiologic amount of fluid within the left hip joint space Imaged lumbar spine is normal. The sacroiliac joints and pubis symphysis are normal. The bilateral hamstrings, iliopsoas, and gluteal tendons are intact. There is no bursitis. The muscle bulk is normal. Bilateral sciatic nerves are normal. Large left adnexal cyst measuring 6.2 cm with a small amount of adjacent free fluid. Otherwise, the pelvic viscera is normal. No pelvic lymphadenopathy. IMPRESSION: 1. Small nondisplaced labral tear within the right anterior superior labrum at the 2 to 3 o'clock position. 2. No chondrosis within the right hip. Dictated by: Kody Reed M.D. The radiology attending physician has personally reviewed this study, and had reviewed and/or edited this written report and agrees with it. Electronically signed by: Terrence Medina MD Ralph Burden DO IM MRI PROCEDURES Fin al Result * Injection Hip Right Arthro Only (10/14/2024 1:22 PM CDT) Anatomical Region Laterality Modality Hip Right Computed Radiogr aphy 10/14/2024 1:28 PM CDT Impressions 10/14/2024 1:29 PM CDT 1. Right hip joint injection under fluoroscopic guidance for MR arthrography. Dictated by: Kody Reed M.D. The radiology attending physician has personally reviewed this study, and had reviewed and/or edited this written report and agrees with it. Electronically signed by: Terrence Medina MD Narrative 10/14/2024 1:29 PM CDT EXAMINATION: 1. Right hip joint injection 2. Fluoroscopic guidance for needle placement HISTORY: Right hip pain, pre MR arthrogram TECHNIQUE: The risks, benefits and alternatives were discussed with the patient. Informed consent was obtained. Prior to beginning the procedure, [place] Protocol was performed to confirm the patient's identity and the planned procedure. The fluoroscopy time has been recorded in the electronic medical record. The patient was placed supine on the procedure table. The right hip joint was localized with fluoroscopic guidance. The skin was prepped and draped in a standard sterile fashion. Using sterile technique, a 20 mL solution was prepared consisting of 10 mL of a 1:100 dilution of Dotarem gadolinium contrast in sterile saline and 10 mL Omnipaque 300. Local anesthesia was achieved with subcutaneous injection of 1% lidocaine 1 mL. A needle was then introduced into the joint under fluoroscopic guidance. Subsequently, 12 mL of the 1:200 gadolinium contrast was injected with intermittent fluoroscopic visualization. Complication: None The patient was then transferred to the MR suite for MR arthrogram. Dr. Terrence Medina MD, the attending radiologist, was present from the beginning to the end of the procedure. Dr. Heather M.D. (radiology fellow) was present and participated in the procedure. Dr. Derek M.D. (administrative resident) was present and participated in the procedure. FINDINGS: Fluoroscopic images confirm intra-articular position of the needle tip with subsequent filling of the joint space. The results of the MR arthrogram are reported separately. Procedure Note Terrence Medina MD - 10/14/2024 EXAMINATION: 1. Right hip joint injection 2. Fluoroscopic guidance for needle placement HISTORY: Right hip pain, pre MR arthrogram TECHNIQUE: The risks, benefits and alternatives were discussed with the patient. Informed consent was obtained. Prior to beginning the procedure, [place] Protocol was performed to confirm the patient's identity and the planned procedure. The fluoroscopy time has been recorded in the electronic medical record. The patient was placed supine on the procedure table. The right hip joint was localized with fluoroscopic guidance. The skin was prepped and draped in a standard sterile fashion. Using sterile technique, a 20 mL solution was prepared consisting of 10 mL of a 1:100 dilution of Dotarem gadolinium contrast in sterile saline and 10 mL Omnipaque 300. Local anesthesia was achieved with subcutaneous injection of 1% lidocaine 1 mL. A needle was then introduced into the joint under fluoroscopic guidance. Subsequently, 12 mL of the 1:200 gadolinium contrast was injected with intermittent fluoroscopic visualization. Complication: None The patient was then transferred to the MR suite for MR arthrogram. Dr. Terrence Medina MD, the attending radiologist, was present from the beginning to the end of the procedure. Dr. Heather M.D. (radiology fellow) was present and participated in the procedure. Dr. Derek M.D. (administrative resident) was present and participated in the procedure. FINDINGS: Fluoroscopic images confirm intra-articular position of the needle tip with subsequent filling of the joint space. The results of the MR arthrogram are reported separately. IMPRESSION: 1. Right hip joint injection under fluoroscopic guidance for MR arthrography. Dictated by: Kody Reed M.D. The radiology attending physician has personally reviewed this study, and had reviewed and/or edited this written report and agrees with it. Electronically signed by: Terrence Medina MD Ralph Burden DO IMG XR PROCEDURES [place] l Result from Last 3 Months Insurance [facility] BMI BENEFITS Member Subscriber Plan / Payer (Ef fective 2024-Present) Name:Alyssa Parker Relation to Subscriber:Self Name:Alyssa Parker Payer ID:[id number] Group ID:Not on file Type:BC OTHER Address: [place] [phone] [facility] [place] EXCHANGE Care Teams Core Stripper Relationship Specialty Start Date End Date No, Physician PCP - General 10/04/24 Lisa Roth PA [address] [place] [address] [place] [id number] Physician House Parent Orthopedic Surgery 10/31/24
--- OUTSIDE RECORDS SUMMARY | 2025-01-10 20:15 | XMS_ITS | Encounter Summary ---
Author Organization [facility] Address [address] [place] [address] Care Team Providers Care Rock Picker Name Role Phone Unavailable Primary Care Provider Unavailabl e Encounter Details Date Type Department Care Team (Late st Contact Info) Description 01/01/2007 [place] Conversion Encounter [facility] DEPT Social History Tobacco Use Types Packs/Day Years Used Date Smoking Tobacco: Never Assessed Comments Unknown Sex and Gender Information Value Date Recorded Sex Assigned at Not on file Legal Sex Female 8:24 PM CDT Gender Identity Not on file Sexual Orientation Not on file documented as of this encounter Progress Notes * [facility] 6:09 AM CDT The patient is accompanied by mother. The patient presents for a follow-up for a respiratory problem. CHIEF COMPLAINT: PT. WAS IN ER TUES FOR UPPER RESPIRATORY INFECTION. ALLERGIES: NKDA MEDICATIONS: TYLENOL CHILDREN COLD, status: NEW HISTORY, 10/09/2006. VITAL SIGNS: VS-TEMPERATURE: 97??f Axillary The patient was checked in by Taj Rea RN. GENERAL: Healthy appearing, alert, normally nourished, [...] Signed by: Mehdi Castro M.D. on Monday, January 01, 2007 Received for:ALLSCRIPTS TEST Sep 02 2011 6:09AM Central Standard Time documented in this encounter Plan of Treatment Not on file documented as of this encounter Visit Diagnoses Not on filedocumented in this encounter
--- OUTSIDE RECORDS SUMMARY | 2025-01-10 20:15 | XMS_ITS | Encounter Summary ---
Author Organization [facility] Address [address] [place] [address] Care Team Providers Care Assistant Merchandiser Name Role Phone Unavailable Primary Care Provider Unavailabl e Encounter Details Date Type Department Care Team (Late st Contact Info) Description 04/10/2007 [place] Conversion Encounter [facility] DEPT Social History [...] ACCOMPANIED BY: Mother. The patient presents for an 18 month - well child exam. (actually 20 mo.) CURRENT HEALTH HABITS: DIET: The child is now drinking 2% milk, to 8 ounces/day, to 10 ozs/day. Diluted juice is also partof the child's regular diet. The child's solid food diet includes table food, yogurt. sippy cup BOWELS: Stools are brown-green. The child has stools 2-3 times per day. URINATION: Has at least 5-6 diaper changes per day, with several soaked in colorless urine. starting potty training SLEEP: The sleeps in a crib. The child sleeps 11 hours at night. The child takes naps once aday, The child naps for 2 hours. OTHER: The family feels that there are no visual or hearing problems. DEVELOPMENTAL/BEHAVIORAL: (NORMAL FOR 18 MONTH LEVEL): (SOCIAL) Plays ball, uses a cup well, uses aspoon to feed self. (FINE MOTOR) Turns pages in a book or magazine. (LANGUAGE) Can combine two or more words, vocabulary is approximately 4 words. (GROSS MOTOR) Mehul and recovers, can walk backwards and walks fast. ALLERGIES: NKDA MEDICATIONS: NO MEDS, status: NEW HISTORY, 2005. VITALS: \ WEIGHT: [id number]. LENGTH: 34 1/2in. HEAD CIRCUMFERENCE: 51.5cm. HISTORY OF PRESENT ILLNESS: congested cough, started night, afebrile, The patient was checked in by MICHELLE Carty. GENERAL: Healthy appearing, alert, normally nourished, developmentally normal and in no acute distress. PHYSICAL EXAM (NORMAL FINDINGS): GENERAL: The patient is awake, alert, and appropriate for age. No acute distress. EYES: Pupils equally round and reactive to light. Extra ocular movement intact. No discharge. Conjunctivae clear. NECK/THYROID: Supple, without lymphadenopathy, no thyroid enlargement. [...] PSYCHIATRIC: Mood and affect appropriate for age. PHYSICAL EXAMINATION: EARS, NOSE, MOUTH AND THROAT: EXTERNAL/ EARS AND NOSE: Overall appearance normal with no scars, lesions or masses. EARS: Tympanic membranes shiny without retraction. Canals unremarkable. Hearing grossly normal. NOSE: CLEAR NASAL DISCHARGE NOTED BILATERALLY. ORAL: Inspection of gums, lips, palate, and teeth normal. No scars, lesions, or masses. Oral mucosaunremarkable with non-inflamed posterior pharynx. RESPIRATORY: THE PATIENT DEMONSTRATES A WET COUGH. ASSESSMENT/PLAN: V20.2-ROUTINE INFANT OR CHILD HEALTH CHECK ASSESSMENT: WELL CHILD EXAM. Patient demonstrates normal rate of growth. The patient demonstrates normal development for age. The patient is up to date on immunizations.DID M CHAT SCREEN WHICH WAS NEG FOR ANY SIGNS OF AUTISM. Patient instructed to return in 4 months. Patient is to return on an as needed basis or to call with concerns or changes in condition. Electronically Signed by: BLAKE Fernandes on Tuesday, April 10, 2007 Electronically Signed by: Jairon Lara M.D. on Tuesday, April 10, 2007 Received for:ALLSCRIPTS TEST Sep 02 2011 6:09AM Central Standard Time * CONVERSION, NATHANAEL - 09/02/2011 6:09 AM CDT PATIENT'S HOME PHONE: PATIENT'S WORK PHONE: DATE: 04/19/2007. TIME OF CALL: 03:41:09 PM. [facility] [address] in [place] or (*[phone]). PATIENT GENERATED CALL: CALL FROM: Patient's mother.MEL (C)[phone] 20M/25# NKDA PT HAS DIAPER RASH SINCE 04/14, RASH IS MAINLY IN DIAPER AREA, A PATCH EXTENDED TO LEGS, LOOKED DIFFERENT BUT HAS DRIED UP AND IS GOING AWAY - STILL DISCOLORED....BRIGHT RED RASH APPEARS TO HAVE FEW OPEN 'POPPED BLISTER LOOKING THINGS'....THIS IS UNUSUAL AND MOM HAS USED A & D, RESINOL - IMPROVED A BIT BUT USUALLY RASH DOESN'T LAST THIS LONG - GAVE DR. PATRICK'S BUTT CRM RECIPE....ONLY CHANGE IS WIPES - SAME BRAND - HUGGIES, BRAND - DID USE UNSCENTED NOW USING CUCUMBER FRAGRANCE(FOR 1 MONTH) - STOPPING TO GET UNSCENTED ONES ON THE WAY HOME ...PLS CALL TO DISCUSS The call was taken by Tatiana Cline. ACTION: The patient was instructed on treatment of diaper rash including Magic Butt Cream. I advise mom to stop using the scented wipes. brielle nut packer Electronically Signed by: Mehdi Castro M.D. on Thursday, April 19, 2007 Received for:ALLSCRIPTS TEST Sep 02 2011 6:09AM Central Standard Time documented in this encounter Plan of Treatment Not on file documented as of this encounter Visit Diagnoses Not on filedocumented in this encounter
--- OUTSIDE RECORDS SUMMARY | 2025-01-10 20:15 | XMS_ITS | Clinical Summary ---
Author Organization [facility] Address [address] [place] [address], [facility] [address] [place] [address] Phone Care Team Providers Care Forestry Tree Pruner Name Role Phone No Pcp, General Primary Care Provider Unavailabl e Allergies No known active allergies Medications acetaminophen (Tylenol) 500 MG tablet Take 500 mg by mouth every 6 (six) hours if needed. Active albuterol 108 (90 Base) MCG/ACT inhaler INHALE 2 PUFFS BY MOUTH WITH A SPACER EVERY 4 HOURS NEEDED 10/20/2023 Active Advair HFA 230-21 MCG/ACT inhaler INHALE 2 PUFFS TWICE A DAY WITH SPACER 08/21/2023 Active ibuprofen 200 MG tablet Take 200 mg by mouth in the morning. Active Dulera 200-5 MCG/ACT inhaler 02/18/2024 Act keith montelukast (Singulair) 10 MG tablet Take 10 mg by mouth in the morning. Active Aurovela FE 04/11 1-20 MG-MCG tablet Take 1 tablet by mouth in the morning. 03/19/2024 Active norgestimate-eth inyl estradiol (Ortho Tri-Cyclen LO) 0.18/0.215/0.25 MG-25 MCG tablet Take 1 tablet by mouth in the morning. 05/31/2024 Active Spiriva Respimat 1.25 MCG/ACT aerosol solution 06/17/2022 Ac tive meloxicam (Mobic) 15 MG tabletIndication s:Strain of flexor muscle of hip <Right side; Initial>,Strain of muscle, fascia and tendon of left hip, initial encounter Take 1 tablet (15 mg) by mouth in the morning. 20 tablet 08/17/2024 Active Active Problems Problem Noted Date Diagnosed Date Syncope 10/20/2022 Dyspnea on exertion 06/13/2021 Orthostatic hypotension 10/12/2019 Uncomplicated mild persistent asthma 10/12/2019 Cervical lymphadenopathy 12/03/2018 Headache 12/03/2018 Sore throat 09/12/2016 Immunizations Immunization Administration Dates Next Due DTaP 10/24/2010 DTaP / Hep B / IPV 02/18/2006,2005, 006 DTaP / Hib 11/14/2006 HPV 9-Valent 09/01/2017,11/04/2016 Hep A, ped/adol, 2 dose 11/07/2008,09/22/2007 Hib (PRP-T) 2005,2005 IPV 10/24/2010 Influenza, injectable, MDCK, preservative free, quadrivalent 04/04/2023 Influenza, injectable, quadr ivalent, preservative free 03/20/2022,01/09/2021,01/17/2016 Influenza, live, intranasal 02/06/2010, 0 Influenza, seasonal, injecta ble, preservative free 03/18/2006,02/18/2006 MMR 10/24/2010,08/13/2006 Meningococcal B, Omv 08/13/2023,04/15/2023 Meningococcal MCV4O 08/27/2022 Meningococcal MCV4P 11/04/2016 Pfizer SARS-CoV-2 Vaccination 09/06/2020 Pneumococcal Conjugate PCV 13 08/13/2006 ,05/21/2006,2005,10/21 Pneumococcal Polysaccharide PPV23 2006,05/21/2006,2005,10/21 Tdap 11/04/2016 Varicella 10/24/2010,08/13/2006 Social History Tobacco Use Types Packs/Day Years Used Date Smoking Tobacco: Never Smokeless Tobacco: Never Alcohol Use Standard Drinks/Week Comments Never 0 (1 standard drink = 0.6 oz pur e alcohol) Comments Unknown Sex and Gender Information Value Date Recorded Sex Assigned at Not on file Legal Sex Female 10:22 AM CDT Gender Identity Not on file Sexual Orientation Not on file Last Filed Vital Signs Vital Sign Reading Time Taken Comments Blood Pressure 118/76 08/17/2024 1:31 PM CDT Pulse - - Temperature - - Respiratory Rate - - Oxygen Saturation - - Inhaled Oxygen Concentration - - Weight 61.2 kg (135 lb) 08/17/2024 1:31 PM CDT Height 167.6 cm (5' 6) 08/17/2024 1:31 PM CDT Body Mass Index 21.79 08/17/2024 1:31 PM CDT Plan of Treatment Health Maintenance Due Date Last Done Comments Influenza Vaccine (#1) 2024 , 03/20/2022, 01/09/2021, Additional history exists Insurance [facility] Care Teams Forestry Tree Pruner Relationship Specialty Start Date End Date No Pcp, General [address] [place] [address] PCP - General 08/09/24
--- OUTSIDE RECORDS SUMMARY | 2025-01-10 20:15 | XMS_ITS | Encounter Summary ---
Author Organization [facility] Address [address] [place] [address] Care Team Providers Care Shipping Room Helper Name Role Phone Unavailable Primary Care Provider Unavailabl e Encounter Details Date Type Department Care Team (Late st Contact Info) Description 02/15/2007 [place] Conversion Encounter [facility] CON[facility] DEPT Social History [...] CONVERSION, MERIDIAN - 09/02/2011 6:09 AM CDT PATIENT'S HOME PHONE: PATIENT'S WORK PHONE: TIME OF CALL: 02:23:14 PM. AGE: 18 months. [facility] in [place] or (*[phone]). PATIENT GENERATED CALL: CALL FROM: Patient's mother.MAURICE, , EXT [phone], SAYS PT HAS RED, GOOPY EYES FOR A COUPLE DAYS. DAYCARE CALLED MOM TO TAKE HER HOME TODAY. SHOULD SHE BE SEEN? PLEASE RETURN HER CALL. The call was taken by Sarita Spear. NURSE'S NOTES: Would you like me to call in eye gtts and give protocol or would you like her to be seen? [facility] DOCTOR'S COMMENTS: DR. WOODS'S COMMENTS: We could start her on eye drops if no other problems, but if any signs of a cold or ear problems, then she should be seen to make sure there isn't an ear infection. ACTION: MEDICATION: MEDICATIONS: VIGAMOX OPHTHALMIC SOLUTION 0.5 %, 1-2 drops in each eye b.i.d. x 3-5 days, status: NEW HISTORY, 02/15/2007. The patient (patient's parent) was informed that the Rx was called to the pharmacy. The patient (patient's parent) was informed of the above. The patient (patient's parent) was informed of the Dr's advise and recommendations as noted above. The call was returned by Neena Dejesus CMA. Mom stated no other sx I called in Vigamox Electronically Signed by: Kell Woods M.D. on Thursday, February 15, 2007 Received for:ALLSCRIPTS TEST Sep 02 2011 6:09AM Central Standard Time documented in this encounter Plan of Treatment Not on file documented as of this encounter Visit Diagnoses Not on filedocumented in this encounter
--- OUTSIDE RECORDS SUMMARY | 2025-01-10 20:15 | XMS_ITS | Encounter Summary ---
Author Organization [facility] Address [address] [place] [address] Care Team Providers Care Senior Branch Manager Name Role Phone Unavailable Primary Care Provider Unavailabl e Encounter Details Date Type Department Care Team (Late st Contact Info) Description 2005 [place] Conversion Encounter [facility] CON[facility]ST[facility] DEPT Social History [...] 09/02/2011 6:09 AM CDT PATIENT'S HOME PHONE: [phone] PATIENT'S WORK PHONE: DATE: 2005. TIME OF CALL: 10:38:27 AM. PATIENT GENERATED CALL: CALL FROM: Patient's mother.-MAURICE- PT NEEDS TO HAVE PKU REPEATED THE ORDER NEEDS TO BE FAXED [facility] [phone]. PLEASE ADVISE CAN REACH MOM @[phone]. The call was taken by Rossy Dias. Order faxed to [facility]. JLangLPN The call was returned by MARY Patel. The patient (patient's parent) was informed of the above. Electronically Signed by: Mehdi Castro M.D. on Thursday, 2005 Received for:ALLSCRIPTS TEST Sep 02 2011 6:09AM Central Standard Time * CONVERSION, NESTOR - 09/02/2011 6:09 AM CDT The patient presents for a 2 month - well child exam. Is nursing every 4-5 hours, about 10 mins per side Is sleeping 6-8 hours nightly and sleeps between feedings Has 6-8 wet diapers and 4 BM's daily DEVELOPMENTAL/BEHAVIORAL: (NORMAL FOR 2 MONTH LEVEL): (SOCIAL) Smiles socially, eyes follow person,turns to sound. (FINE MOTOR) Holds a rattle briefly, Palmar grasp fading. (LANGUAGE) [place], listens to watt, direct regard, responds to loud sounds and is beginning to distinguish and respond more to parents than to others. (GROSS MOTOR) Holds head temporarily erect but unsteady when held upright. ALLERGIES: NKDA CURRENT MEDICATION LIST: NO MEDS, VITALS: WEIGHT: 38dxr42.0oz. LENGTH: 24.5in. HEAD CIRCUMFERENCE: 42cm. CHIEF COMPLAINT: Redness to folds of skin under her chin The patient was checked in by Nik [...] normal. ASSESSMENT/PLAN: V20.2-ROUTINE OR CHILD HEALTH CHECK ASSESSMENT: Patient demonstrates normal rate of growth. The patient demonstrates normal developmentfor age. The patient is up to date on immunizations. IMMUNIZATION ORDER: Pediarix, Pedvax Hib, Prevnar. The patient (patient's parent) was advised about typical immunization reactions including fever within next 48 hours (to be treated with Tylenol), localized redness or swelling at the site of injection (to be treated with Tylenol and application of (wrapped) ice to minimize swelling. Advised of possibility of rashes and timing of them. Advised of reasons to be concerned and to callthe office. IMMUNIZATIONS: DTAP. IPV, HEP B, 0.5, MILLILITERS, INTRAMUSCULAR INJECTION, Left Thigh, given by kenyatta on 2005; Parent/Guardian: mom, consent form signed, literature given; PED VAX HIB, 0.5, MILLILITERS, INTRAMUSCULAR INJECTION, Right Thigh, given by kenyatta on 2005; Parent/Guardian: mom, consent form signed, literature given; PREVNAR, 0.5, MILLILITERS, INTRAMUSCULAR INJECTION, Right Thigh, given by kenyatta on 2005; Parent/Guardian: mom, consent form signed, literature given; ANTICIPATORY CARE: Anticipatory guidelines were discussed with parent including: allergy prevention, guidance regarding crying, family relationship, the importance of cuddling, talking and playing with the baby, parent/child interaction, sibling interaction, injury prevention, the use of car safety restraints, caution with cigarette ashes and hot liquids, never leaving baby unattended on a bed ortable, phone number for the Poison Control Center, the importance of a smoke detector in the home, advising against walkers, usual feeding intervals, the use of iron supplements and vitamin D,the introduction of solid foods, sleep practices and childcare. Electronically Signed by: Mehdi Castro M.D. on Friday, 2005 Received for:ALLSCRIPTS TEST Sep 02 2011 6:09AM Central Standard Time Electronically signed by [facility] Nestor at 12/20/2014 7:06 PM CDT documented in this encounter Plan of Treatment Not on file documented as of this encounter Visit Diagnoses Not on filedocumented in this encounter
--- OUTSIDE RECORDS SUMMARY | 2025-01-10 20:15 | XMS_ITS | Encounter Summary ---
Author Organization [facility] Address [address] [place] [address] Care Team Providers Care Amusement Park Entertainer Name Role Phone Unavailable Primary Care Provider Unavailabl e Encounter Details Date Type Department Care Team (Late st Contact Info) Description 2005 [place] Conversion Encounter [facility] CON[facility]STION DEPT Social History [...] 09/02/2011 6:09 AM CDT ACCOMPANIED BY: Mother. WEIGHT CHECK. CURRENT HEALTH HABITS: FEEDING: Normal breast feeding habits, every 3 hours. BOWELS: Normal appearing stools. The baby has stools with each feeding. URINATION: Has a wet diaper at each feeding. SLEEPING: Normal sleep habits for age. ALLERGIES: NKDA MEDICATIONS: NO MEDS, status: NEW HISTORY, 2005. WEIGHT: [id number] INTERVAL BETWEEN MEASUREMENTS: 7 days. RATE OF WT GAIN: 1.5 ozs/day. ASSESSMENT: The infant's rate of weight gain is very good. CONCERN(S):. choking / gagging when breast feeding, mom concerned about getting into lungs The patient was checked in by Neena Price LPN. ASSESSMENT/PLAN: 779.3-FEEDING PROBLEMS IN 530.81-ESOPHAGEAL REFLUX ASSESSMENT: discussed reflux precautions and keeping head elevated, what to watch for and when to worry Electronically Signed by: Mehdi Castro M.D. on Friday, 2005 Received for:ALLSCRIPTS TEST Sep 02 2011 6:09AM Central Standard Time documented in this encounter Plan of Treatment Not on file documented as of this encounter Visit Diagnoses Not on filedocumented in this encounter
--- OUTSIDE RECORDS SUMMARY | 2025-01-10 20:15 | XMS_ITS | Encounter Summary ---
Author Organization [facility] Address [address] [place] [id number] Care Team Providers Care Freight Sales Broker Name Role Phone Unavailable Primary Care Provider Unavailabl e Encounter Details Date Type Department Care Team (Late st Contact Info) Description 02/18/2006 [place] Conversion Encounter [facility] Social History [...] BY: Mother. The patient presents for a 6 month - well child exam. CURRENT HEALTH HABITS: DIET: The is on [employer] Good Start formula, intake is approximately 4 ounces per feeding, every 4 hours. The baby is fed Stage 1 vegetables, Stage 1 fruits, rice cereal, oat cereal. BOWELS: Normal appearing stools. The baby has stools 2-3 times per day. URINATION: Has more than 5-6 wet diaper changes per day. SLEEP: The sleeps in a crib. The child sleeps 11 hours at night. The child takes naps twice a day, The child takes cat naps, The child naps for 2 hours. OTHER: The family feels that there are no visual or hearing problems. DEVELOPMENTAL/BEHAVIORAL: (NORMAL FOR 6 MONTH LEVEL): (SOCIAL) Blows bubbles and makes sounds when alone and with others, shows displeasure at the loss of a toy, can hold own bottle to feed. (FINE MOTOR) Reaches for and grasps objects, can transfer objects from hand to hand, and plays with feet. (LANGUAGE) Laughs, squeals, takes the initiative in vocalizing and babbling at others, imitates speechsound, turns to sounds that originate distant from immediate sight and changes activities. (GROSS MOTOR) Rolls over, sits with support, bears some weight on the lower extremities, holds chest up whenlying prone. ALLERGIES: NKDA MEDICATIONS: NO MEDS, status: NEW HISTORY, 2005. VITALS: WEIGHT: [id number]. LENGTH: 27 1/2in. HEAD CIRCUMFERENCE: 45.5cm. HEAD CIRCUMFERENCE: 46.8cm. PREVENTIVE HEALTH MAINTENANCE TIPP SAFETY HANDOUT PROVIDED TO PARENT/RESPONSIBLE [employer] Due on 2005. Date performed 02/18/2006 CHIEF COMPLAINT: now that eating food , decrease in bottles The patient was checked in by Neena Price LPN. GENERAL: Healthy appearing, alert, normally nourished, [...] active. : Normal genitalia. Normal femoral pulses. LYMPHATICS:No lymphadenopathy. M/S: No joint or bone abnormalities seen. No muscle weakness or scoliosis. SKIN: No rashes, normal color. NEURO: No meningeal findings. Reflexes are normal. PSYCHIATRIC: Mood and affect appropriate for age. ASSESSMENT/PLAN: V20.2-ROUTINE INFANT OR CHILD HEALTH CHECK 6 MONTH EXAM ASSESSMENT: Patient demonstrates normal rate of growth. The patient demonstrates normal developmentfor age. The patient is up to date on immunizations. IMMUNIZATION ORDER: Pediarix, Influenza - (6-35 mos). IMMUNIZATIONS: DTAP. IPV, HEP B, 0.5, MILLILITERS, INTRAMUSCULAR INJECTION, Right Thigh, given by bhavani on 02/18/2006; consent form signed, literature given; INFLUENZA 0.25, 0.25, MILLILITERS, INTRAMUSCULAR INJECTION, Left Thigh, given by tania on 02/18/2006; consent form signed, literature given; ANTICIPATORY CARE: General interaction between parent and baby was discussed, general nutrition, teething. Return for 9 month well baby visit. Return in 1 month for 2nd dose of flu shot. Electronically Signed by: Kell Woods M.D. on Thursday, February 18, 2006 Received for:ALLSCRIPTS TEST Sep 02 2011 6:09AM Central Standard Time documented in this encounter Plan of Treatment Not on file documented as of this encounter Visit Diagnoses Not on filedocumented in this encounter
--- OUTSIDE RECORDS SUMMARY | 2025-01-10 20:16 | XMS_ITS | Data Portability ---
Author Organization [place] [facility], [facility] Address [address] [place] [address] Care Team Providers Care Extruder Operator Name Role Phone JAMILA ONEIL Primary Care Provider Assessment Encounter Date Assessment Date Assessment LastModified by Organization Details LastModified Time 02/08/2021 02/08/2021 Assessment: 1. Exercise associated dyspnea. Symptoms described are suggestive of exercise-induced bronchospasm, as trouble breathing occurs during exhalation, there is presence of chest tightness, and she perceives wheezing. She describes loud wheezing, which raises concern about possibility of exercise induced vocal cord dysfunction. Wheezing noted with exercise induced bronchospasm is usually not loud. Recommendations: 1. Discussed normal results of spirometry study and Exhaled nitric oxide test. 2. Advised patient, to notice if wheezing is noted to be coming from chest or neck. 3. Discussed with father and patient, 2 most likely possibilities for her symptoms. This would include exercise-induced bronchospasm or exercise-induced vocal cord dysfunction. Discussed diagnostic test for them, such as exercise PFT for exercise-induced bronchospasm, and exercise laryngoscopy for diagnosis of vocal cord dysfunction. 4. Advised, that for now, would change treatment regimen for exercise-induced bronchospasm, and if despite that, symptoms are not well controlled, then exercise PFT would be advised. Patient and father agreed. 5. Discontinue Qvar and albuterol. Start Symbicort 80/4.5 inhaler, with holding chamber, 2 puffs 15 minutes prior to exercise. Discussed technique of use of inhaler with holding chamber. Discussed priming and tracking of inhaler doses. 6. Advised to make video of loud wheezing with exercise, and to bring it in next visit. Follow-up with me in 4 weeks. To bring inhaler and holding chamber in next visit. Total time taken in reviewing the notes sent by primary care physician, in taking history from patient and father, in performing physical examination, in discussing various possible diagnosis, in discussing treatment plan, in reviewing the results of breathing tests, in discussing possible need for exercise tests in future, in demonstrating technique of use of inhaler with holding chamber, and in documenting all this in medical record, was 60 minutes. This time did not include time taken in performing, interpreting and documenting spirometry and Exhaled nitric oxide test. lesley Not available 02/08/2021 11:39:17 03/26/2021 03/26/2021 Assessment: 1. Exercise associated dyspnea. Based on history, she likely has either exercise-induced bronchospasm or exercise induced vocal cord dysfunction, or combination of both. Recommendations: 1. Step up in treatment of exercise induced bronchospasm was advised, to see if that would afford relief to symptoms. 2. Symbicort 80/4.5, 2 puffs twice a day on daily basis with holding chamber. Discussed how to improve technique of its use. 3. Add montelukast 10 mg once a day on daily basis. Discussed various neuropsychiatric side effects of this medication. If any of those are noted, to stop it. 4. Albuterol inhaler with holding chamber, 2 puffs 15 min prior to exercise. 5. Exercise PFT for evaluation of exercise-induced bronchospasm was advised. Referral was given to get it done at [facility]. Father to call and make that appointment. Advised to stop all daily medications for 1 week prior to that appointment. Not to use albuterol inhaler for 24 hr prior to that appointment. To bring albuterol inhaler and holding chamber for that appointment. Follow-up with me in 1 month. To bring all medications and devices in each follow-up visit. Discussed with patient & father, that CDC is likely to recommend booster dose of COVID vaccine for her age group within next few days. Once that recommendation is made, to get the COVID-19 booster vaccination. Total time taken in reviewing the chart prior to seeing the patient, in taking history from patient and father, in reviewing adherence with use of medications, in reviewing technique of use of inhaler with holding chamber, in performing physical examination, in discussing treatment plan, in ordering medication, in ordering breathing test, in demonstrating how to improve technique of use of inhaler with holding chamber, and in documenting all this in medical record, was 40 min. lesley Not available 03/26/2021 13:37:01 05/21/2021 05/21/2021 Assessment: 1. Exercise-induced asthma, symptoms well controlled on current treatment regimen. Recommendations: 1. Discussed with patient and mother, results of exercise PFT, that it did show evidence of exercise-induced bronchospasm. 2. Symbicort 80/4.5, 2 puffs twice a day with holding chamber. Discussed how to improve technique of its use. Advised to improve adherence with its use. 3. Montelukast 10 mg once a day on daily basis. Discussed various neuropsychiatric side effects of this medication. If any of those are noted, to call me. 4. Albuterol inhaler with holding chamber, 2 puffs 15 min prior to exercise, 2-4 puffs every 4 hr as needed for cough, wheezing, chest tightness or trouble breathing. Follow-up with me in 3 months. Total time taken in reviewing the chart prior to seeing the patient, in taking history from patient & mother, in reviewing the results of exercise PFT, in reviewing adherence with use of medications, in reviewing technique of use of inhaler with holding chamber, in performing physical examination, in discussing treatment plan, in discussing results of exercise PFT, in reviewing how to improve technique of use of inhaler with holding chamber, and in documenting all this in medical record, was 32 min. lesley Not available 05/21/2021 18:25:14 Plan of Treatment Reminders Order Date Submit Date Provider Last Modified By Organization Details Last Modified Time Details Appointments None recorded. Lab None recorded. Referral None recorded. Procedures None recorded. Surgeries None recorded. Imaging None recorded. Medication Orders Symbicort 80 mcg-4.5 mcg/actuati on HFA aerosol inhaler 2021 022 [facility] [id number] [employer], [address] [facility], [place], [address], 17:28:19 montelukast 10 mg tablet 03/01/ 2022 03/01/2 022 [id number], [address], [place], [address], 17:28:49 montelukast 10 mg tablet 2021 022 [facility] [id number] [employer], [address], [place], [address], 13:31:37 Symbicort 80 mcg-4.5 mcg/actuati on HFA aerosol inhaler 2021 022 [facility] [id number] [facility] [employer], [address], [place], [address], 13:37:53 albuterol sulfate HFA 90 mcg/actuati on aerosol inhaler 2021 022 [facility] [id number] [facility] [employer], [address], [place], [address], 13:37:53 Symbicort 80 mcg-4.5 mcg/actuati on HFA aerosol inhaler 2020 021 [facility] [id number] [facility] [employer], [address], [place], [address], 12:40:36 Patient TargetsNo targets recorded. Patient Instructions Encounter Date Encounter Id Patient Instructions Last Modified By Organization Details Last Modified Time 02/08/2021 [id number] fractional exhaled nitric oxide* [facility] Not available 02/08/2021 17:06:30 spirometry testing* [facility] Not available 02/08/2021 17:06:22 03/26/2021 [id number] pulmonary function test* - Kindly do Exercise PFT for evaluation of Exercise induced Bronchospasm. Patient would bring albuterol inhaler with holding chamber for the test. Kindly call [facility] at [phone] to make appointment. MUSA Not available 05/21/2021 17:40:54 Reason for Referral None Reported. Results Created Date Observation Date Name Description Value Unit Range Abnormal Flag Note LastModifiedBy Organization Detail LastModifiedTime 02/09/2002/08/2021 fract ional exhal ed nitri c oxide * No observ ation record ed. [email or web address] Not Available 2021 12:47:58 02/09/20 21 02/08/2021 deborah metry testi ng* No observ ation record ed. [email or web address] Not Available 2021 12:47:53 05/15/19 pulmo nary funct ion test* No observ ation record ed. [email or web address] [facility] [address], [place], [address], 07/09/2021 12:52:02 05/22/19 22 05/09/2021 pulmo nary funct ion test* No observ ation record ed. [email or web address] [facility] ([place] [address], [place], [address], 07/09/2021 12:47:47 Result Notes None recorded. Problems Name Problem SNOMED Code Status Onset Date Resolution Date Notes Provider Name and Address Organization Details Recorded Time Dyspnea on exertion 86122066 Active Momo Morris MD [address] [facility],[address], [place], [address], [facility] 11:25:17 Problem Notes None recorded. Procedures Surgical History Date Name Laterality Status Provider Name and Address Organization Details Recorded Time 0 Remove tonsils and adenoids completed BRIAN GOODMAN SAP ANALYST-BC [address] [facility],[address], [place], [address], [facility] 02/08/2021 09:34:40 Imaging Results None recorded. Procedure Notes None recorded. Medical Equipment None Reported. Allergies No known drug allergies Medications Name Sig Start Date Stop Date Status Note LastModified by Organization Details LastModified Time azithromyci n 250 mg tablet TAKE 2 TABLETS BY MOUTH TODAY, THEN TAKE 1 TABLET DAILY FOR 4 DAYS active Not Available Not Available No t Available clindamycin 1 %-benzoyl peroxide 5 % topical gel APPLY TO AFFECTED AREA NIGHTLY active Not Available Not Available No t Available montelukast 10 mg tablet TAKE 1 TABLET BY MOUTH EVERY DAY active Not Available Not Available No t Available albuterol sulfate HFA 90 mcg/actuati on aerosol inhaler 2 puffs 15 minutes prior to exercise with holding chamber. 2021 active Not Available Not Available Not Avai lable Symbicort 80 mcg-4.5 mcg/actuati on HFA aerosol inhaler 2 puffs twice a day with holding chamber. 2021 active Not Available Not Available Not Avai lable OptiChamber Eva [facility] spacer USE WITH SYMBICORT INHALER active Not Available Not Available No t Available Qvar RediHaler 40 mcg/actuati on HFA breath activated aerosol 02/08 completed Not Available Not Available Not Available Vitals Date Recorded Body weight Body mass index (BMI) [Percentile] Per age and sex Body mass index (BMI) Body height Provider Name and Address Organization Details Last Updated DateTime 03/26/2021 81179.42 g 57 % 20.8 kg/m2 167.64 cm Amy Jett [facility] 03/26/2021 10:17:25 Date Recorded Body height Body mass index (BMI) [Percentile] Per age and sex Body mass index (BMI) Body weight Provider Name and Address Organization Details Last Updated DateTime 05/21/2021 167.01 cm 62 % 21.3 kg/m2 86505.6 g PAVEL DRUMMOND [facility] 05/21/2021 17:06:27 Date Recorded Body height Body mass index (BMI) Body mass index (BMI) [Percentile] Per age and sex Body weight Provider Name and Address Organization Details Last Updated DateTime 02/08/2021 168.71 cm 20.2 kg/m2 50 % 77651.51 g BRIAN GOODMAN [facility]- [address] [facility],[address], [place], [address], [facility] 02/08/2021 09:29:26 Social History Question Answer Notes LastModified by Organizat ion Details LastModified Time Tobacco Smoking Status Never Smoker BRIAN LOPEZP-BC [address] [facility],[address], [place], [address], [place] [facility] 02/08/2021 09:34:15 Cat In Home No Information n ot available 02/08/2021 Dog In Home Yes 1 Information n ot available 02/08/2021 Other Furry Pets In Home No Information not available 02/08/2021 Bird In Home No Information not available 02/08/2021 Cockroach Seen In Home In Last Month No Information not available 02/08/2021 Mice/Rat Seen In Home In Last Month No Information not available 02/08/2021 Do Any Household Member/s Smoke No Information not available 02/08/2021 Sex: Unknown Functional Status Question Answer Note LastModified by Organization D etails LastModified Time Do you or have you ever used any other forms of tobacco or nicotine? No Information not available 02/08/2021 Mental Status None recorded. Family History Relationship Description Onset Age of this Age Resolved Age Notes LastModified by Organization Details LastModified Time Father Malignant neoplasm of descending colon 51 Colore ctal cancer surviv or Not available 02/08/2021 09:32:28 Mother Malignant neoplasm of thyroid gland 51 Thyroi d Cancer Not available 02/08/2021 09:33:09 Mother Thyroidectom y 51 Not available 2020 09:33:18 Notes:No family history of C F, nose/eye allergy, asthma, food allergy, and eczema. Medical History No medical history recorded. Gynecological HistoryNo gynecological history recorded. Obstetrics History GPAL:G 0 P 0 0 0 0 Past Encounters Encounter ID Performer Location Encounter Start Date Encounter Closed Date Diagnosis/Indication Diagnosis SNOMED-CT Code Diagnosis ICD10 Code Diagnosis IMO Codes Diagnosis Note [id number] Momo Morris MD [email or web address] [facility] [address] [facility],[address] [place] [address] 02/08/2021 09:22:59 02/08/2021 10:34:06 Dyspnea on exertion 82553952 R06.09 [id number] MD [facility] [address],[place] [address] 03/26/2021 10:07:29 03/26/2021 11:52:19 Dyspnea on exertion 05339050 R06.09 [id number] MD [facility] [address],[place] [address] 05/21/2021 17:00:09 05/22/2021 08:13:18 Exercise-induced asthma 67557457 J45.990 Health Concerns Section Related Observation LastModified by Organization Detai ls LastModified Time None Recorded Concern Status LastModified by Organization Details LastModified Time None Recorded Advance Directives Directive None Recorded Payers Insurance Date Sequence Insurance Name Policy Number Policy Yoon Covered Member ID Yoon Member ID Guarantor Name 05/21/2021 1 [place] [id number] Ariana Parker [id number] Alyssa Parker 07/09/2021 1 [place] [facility] PRIOR TO 10/21/2024 (MEDICAID REPLACEMENT - HMO) Alyssa Parker [id number] Alyssa Faroese 03/26/2021 1 [facility] [place] [id number] Ariana Parker [id number] Alyssa Parker Notes Date Note Type Note Provider Name and Address Organization Details Recorded Time 02/08/2021 text/html On request of referring provider, patient was seen for Pediatric Pulmonary consultation on 02/08/2021. Patient is 15-year-old female, brought by father. Both father and patient provided history. The consult was requested for advice regarding her symptoms of exercise associated dyspnea. Since summer, she has been having various respiratory symptoms with exercise. Immediately prior to that, she was treated for double pneumonia. That episode of illness did not require ED visit or hospitalization. At that time, she had few days of fever, cough, chest pain and headache. She also had concussion related to soccer prior to onset of exercise associated respiratory symptoms. With exercise activities, she feels trouble breathing, tightness in middle of chest, wheezing, and sometimes coughing. Trouble breathing occurs in exhalation and not inhalation. Wheezing is loud enough, to be heard by other people around. She is not sure, if wheezing comes from chest or from Neck. No chest pain. She does get dizzy at that time. There is no fainting episodes or palpitations. No tingling or numbness. She does not feel reflux, regurgitation, burning of throat or chest at that time. Symptoms are much worse in hot and humid environment, or in cold temperature. On noticing the symptoms, either she stops exercise, or slows down. Symptoms then slowly gets better. These respiratory symptoms are sometimes noted when climbing stairs fast in school. But it is not noted at any other time, such as with routine activities, at rest, in sleep, on laughing, on crying. She has been using albuterol inhaler with holding chamber, 2 puffs 30 minutes prior to exercise, without improvement in symptoms. Since November 2020, she has been also using Qvar Redihaler 2 puffs twice a day, but not very regularly. She has received both influenza vaccination as well as Covid 19 vaccination. No history of frequent runny nose, sneezing, itchy nose or stuffy nose. No frequent itchy, watery or red eyes. No snoring in sleep. Father does not know, if she has mouth breathing in sleep. No labored breathing in sleep. No choking or gasping in sleep. No breathing pauses in sleep. No excessive sweating in sleep. No choking, gagging or coughing while swallowing food or liquid. No reflux or regurgitation. No frequent burning of throat or chest. Various pertinent positives and negatives described above. All other review of systems were negative. PAST HISTORY: history: Patient was born as a full term . She did had some respiratory problem in period, needed oxygen. There were no other complications in period. No history of food allergy. No history of eczema. History of pneumonia once as described above, no other episodes of pneumonia. No history of frequent ear or sinus infections. No history of acid reflux disease. No history of sleep apnea. No history of frequent diarrhea or poor weight gain. No history of seizures. No history of developmental delay. No history of mental health problem. No history of any other medical problem. Hospitalized once for viral meningitis in 2017. No other hospitalizations. No history of surgeries. Reviewed records sent by primary care physician. It consisted of office visit note of 12/12/2020 and 01/09/2021. Notes of 12/12/2020 suggest, that patient has symptoms of cough, wheezing and chest pressure for more than 1 month. Symptoms increases by activity. Exam was normal. Treatment with QVAR 40 mcg, 2 puffs twice a day, and albuterol inhaler 2 puffs 30 min prior to exercise was advised. X-ray chest was done on 12/19/2020 and reported normal. Follow-up visit note of 01/09/2021 mentions, that child not consistently adherent with use of QVAR. This note describes, that overall symptoms less with these treatments. Momo Morris MD [address] [place] [address],[address], [place], [address], [facility] 02/08/2021 11:40:01 03/26/2021 text/html Patient is 15-year-old female, who came for Pediatric Pulmonary follow-up on 03/26/2021. She was seen for initial consultation on 02/08/2021. She has exercise associated dyspnea, and has returned for follow-up of this problem with her father. PAST SUMMARY: Patient 1st seen by me on 02/08/2021 (age: 15 years). She presented with history of exercise associated dyspnea since summer of 2018. Immediately prior to that, she was treated for pneumonia (as outpatient). Immediately prior to that, she also had concussion. She described having trouble breathing (noted during exhalation and not inhalation), chest tightness, wheezing and mild cough with exercise. Wheezing was described to be loud, but patient was not sure, if that wheezing was coming from chest or neck. Mild dizziness would be also felt sometimes at that time. No history of fainting, palpitations, tingling, numbness or reflux symptoms with exercise. Symptoms would be worse with exercise in hot and humid weather. Sometimes the symptoms would be noted in school, on climbing the stairs fast. But these respiratory symptoms would not be noted at any other time. She was already using albuterol inhaler, 30 min prior to exercise without improvement. She was also taking daily QVAR inhaler for 2 months prior to that, but not regularly. There is no history of frequent rhino conjunctivitis symptoms, reflux symptoms, food allergy or eczema. X-ray chest done in November 2020 was reported normal. Exhaled nitric oxide test and spirometry study done in that initial visit was normal. She was advised to try Symbicort inhaler 80/4.5, with holding chamber, 2 puffs 15 min prior to exercise. Her current medications include: 1. Symbicort 80/4.5, 2 puffs 15 min prior to exercise with holding chamber. She has received 1 inhaler after it was started in last visit. That inhaler has 96 puffs left. This suggest, that it has been used only 12 times. She showed technique of use of inhaler with holding chamber. She was taking fast inhalation. She was holding breath only for 1-2 seconds after deep inhalation. She was keeping her neck flexed during treatment. She was advised in improving these steps. Since last visit of 02/08/2021, no interval ED visit, hospitalization or sick office visit. She has received 2 doses of COVID vaccine, and is up-to-date with influenza vaccine. Despite use of pre exercise Symbicort, she continues to get exercise associated respiratory symptoms. She is involved in soccer practice and soccer competitive games. Usually about 30 min into the game or practice, she develops various exercise associated symptoms. This include trouble breathing (noted during exhalation and not inhalation), tightness in the upper chest, wheezing, and mild coughing. Cough is mild in severity. Wheezing is loud. She perceives, that wheezing is coming from chest and not Neck. Tightness of throat was felt once. On noticing symptoms, she usually stops, and symptoms improves within 3-4 minutes. Currently, she does practice in indoor environment. Recently, she went to [place], for competitive soccer game. At that time, she played soccer in outdoor humid environment, and had much more severe symptoms, and 1 of those times, symptoms continued for 3-4 hours after stopping exercise. She also feels mild dizziness at that time. No history of fainting, palpitations, tingling or numbness. Reflux symptoms during exercise occurs very rarely. These respiratory symptoms have not been noted at any other time (other than exercise), since last visit. No frequent runny nose, sneezing, itchy nose or stuffy nose. No frequent itchy, watery or red eyes. She does not feel postnasal drip. No fevers. She does not feel reflux or regurgitation. No frequent burning of throat or chest. Currently she is involved in soccer practice about 4 times per week. Momo Morris MD [address] [place] [address],[address], [place], [address], [facility] 03/26/2021 13:38:18 05/21/2021 text/html Patient is 15-year-old female, who came for Pediatric Pulmonary follow-up on 05/21/2021. She was last seen by me on 03/26/2021. She has exercise-induced dyspnea, and has returned for follow-up of this problem with her mother.PAST SUMMARY:Patient 1st seen by me on 02/08/2021 (age: 15 years). She presented with history of exercise associated dyspnea since summer. Immediately prior to that, she was treated for pneumonia (as outpatient). Immediately prior to that, she also had concussion. She described having trouble breathing (noted during exhalation and not inhalation), chest tightness, wheezing and mild cough with exercise. Wheezing was described to be loud, but patient was not sure, if that wheezing was coming from chest or neck. Mild dizziness would be also felt sometimes at that time. No history of fainting, palpitations, tingling, numbness or reflux symptoms with exercise. Symptoms would be worse with exercise in hot and humid weather. Sometimes the symptoms would be noted in school, on climbing the stairs fast. But these respiratory symptoms would not be noted at any other time. She was already using albuterol inhaler, 30 min prior to exercise without improvement. She was also taking daily QVAR inhaler for 2 months prior to that, but not regularly. There is no history of frequent rhino conjunctivitis symptoms, reflux symptoms, food allergy or eczema. X-ray chest done in November 2020 was reported normal. Exhaled nitric oxide test and spirometry study done in that initial visit was normal. She was advised to try Symbicort inhaler 80/4.5, with holding chamber, 2 puffs 15 min prior to exercise. This did not help symptoms. She was then advised to take Symbicort 80/4.5, 2 puffs twice a day, Montelukast 10 mg daily and pre-exercise albuterol inhaler. Her current medications include:1. Symbicort 80/4.5, 2 puffs twice a day with holding chamber. She showed technique of its use. She was keeping her neck flexed during the treatment, other steps were correct. She was advised in improving this step. In last visit 96 puffs were left. After that another inhaler was obtained. That inhaler has 70 puffs left. She stopped this inhaler for 1 week prior to exercise PFT. This suggest adherence of 76%.2. Montelukast 10 mg once a day was used for 30 days, and then stopped, as could not get refills. No behavioral of psychiatric side effects were noted with this treatment.3. Albuterol inhaler with holding chamber, 2 puffs 15 min prior to exercise.Since last visit of 03/26/2021, no interval ED visit, hospitalization or sick office visit. According to patient, with new treatment regimen of using daily montelukast, daily Symbicort, and pre exercise albuterol inhaler, her exercise associated respiratory symptoms significantly improved. Currently, when she is taking daily Symbicort, but not daily montelukast, symptoms are still significantly less, but not as well controlled, when she was also taking daily montelukast. She performs soccer practice about 3 days per week. Symptoms with soccer practice is noted only 10% with time, when she feels chest tightness and shortness of breath, those symptoms are much milder than before. Now she does not get respiratory symptoms on climbing stairs at school. None of her respiratory symptoms are noted on routine activities, at rest, or in sleep. She does not feel neck tightness.No frequent runny nose, sneezing, itchy nose or stuffy nose. No frequent itchy eyes, watery eyes or red eyes. No skin rash. I had advised exercise PFT for evaluation of exercise-induced bronchospasm, and it was done at [facility]. It was done after stopping all meds for one week. Reviewed the results of exercise PFT. It was done on 05/09/2021. She exercised for 6 min, then developed dyspnea, and had to stop. There was fall in FEV1 up to 20% after exercise. After use of bronchodilator, this decline in FEV1 reversed. Momo Morrsi MD [address] [place] [address],[address], [place], [address], [facility] - [facility] 05/21/2021 18:27:21 OBGyn Episode No OBEpisode recorded.
--- OUTSIDE RECORDS SUMMARY | 2025-01-10 20:16 | XMS_ITS | Encounter Summary ---
Author Organization [facility] Address [address] [place] [address] Care Team Providers Care Preschool Assistant Teacher Name Role Phone Unavailable Primary Care Provider Unavailabl e Encounter Details Date Type Department Care Team (Late st Contact Info) Description 11/07/2008 [place] Conversion Encounter [facility] DE[facility] Social History [...] - 09/02/2011 6:09 AM CDT ACCOMPANIED BY: Caregiver. The patient presents for a 3 year preschool exam. CURRENT HEALTH HABITS: DIET: Normal well-balanced diet for age, eats fruits well, eats vegetables well, eats meats well, 2% milk, 1 glass of milk per day, The child eats other dairy products well. No known food allergies. No vitamin or fluoride supplements taken. BOWELS: Normal appearing stools. Has daily bowel movements. URINATION: Voiding well without obstructive or irritative symptoms. SLEEP: The infant sleeps in his/her own bed. The child sleeps 10 hours at night. The child takes naps once a day, The child naps for 1 to 1 1/2 hours. OTHER: There are no visual or hearing problems. THE PATIENT HAS NEVER BEEN TO THE DENTIST. DEVELOPMENTAL/BEHAVIORAL: No developmental delays noted for age. VITAL SIGNS: VS-HEIGHT: 39.5in VS-WEIGHT: 36lbs BMI: 16.22 VS-BLOOD PRESSURE: 94/48 Right Arm Sitting ALLERGIES: NKDA MEDICATIONS: NO MEDS, status: NEW HISTORY, 2005. GENERAL CHIEF COMPLAINT: No issues or concerns were raised this visit. DIABETES FAMILY HISTORY SCREENING: THE PATIENT'S MATERNAL GRANDMOTHER HAS DIABETES. The patient was checked in by Krissy Segundo CMA. SOCIAL HISTORY: PERSONS IN HOME: The patient lives with parents, siblings. DAY CARE: [facility] day care center. PARENTS WORKING: SCHOOL: Adequate academic performance. PEER INTERACTION: Normal. GENERAL: Healthy appearing, alert, normally nourished, developmentally [...] clear to auscultation bilaterally. Normal respiratory effort. No wheezing, rales, or congestion. CARDIOVASCULAR: Regular rate and rhythm. No murmur. [...] ASSESSMENT/PLAN: V20.2-ROUTINE INFANT OR CHILD HEALTH CHECK Well exam, no concerns today. Will return in next few weeks with sibling for flu mist. ASSESSMENT: 3 YEAR EXAM. Patient demonstrates normal rate of growth. The patient demonstrates normal development for age. The patient is up to date on immunizations. IMMUNIZATION ORDER: Hepatitis A. IMMUNIZATIONS: HEPATITIS A, 0.5, MILLILITERS, INTRAMUSCULAR INJECTION, Upper Left Arm, given by nasreen on 11/07/2008; Verbal consent obtained, literature given; l thigh rn ANTICIPATORY CARE: Anticipatory guidelines were discussed with parent including: allergy prevention, injury prevention, the use of car safety restraints, good parenting practices, nutrition, discipline, school readiness skills and toilet training. Patient is to return on an as needed basis. Reminded parent to call back to schedule a flu vaccine. Electronically Signed by: BLAKE Vargas on Friday, November 07, 2008 4:46 pm Electronically Signed by: Mehdi Castro M.D. on Friday, November 07, 2008 4:52 pm Received for:ALLSCRIPTS TEST Sep 02 2011 6:09AM Central Standard Time documented in this encounter Plan of Treatment Not on file documented as of this encounter Visit Diagnoses Not on filedocumented in this encounter
--- OUTSIDE RECORDS SUMMARY | 2025-01-10 20:16 | XMS_ITS | Encounter Summary ---
Author Organization [facility] Address [address] [place] [address] Care Team Providers Care Prune Washer Name Role Phone Michelle Asher MD Primary Care Provider [phone]- [phone] Encounter Details Date Type Department Care Team (Late st Contact Info) Description 12/25/2021 Orders Only [facility] [address] [place] [address] Michelle Asher MD [address] [place], [place] [id number] Social History Tobacco Use Types Packs/Day Years Used Date Smoking Tobacco: Never Smokeless Tobacco: Never Alcohol Use Standard Drinks/Week Comments Never 0 (1 standard drink = 0.6 oz pur e alcohol) Sex and Gender Information Value Date Recorded Sex Assigned at Not on file Gender Identity Not on file Sexual Orientation Not on file Job Start Date Occupation Industry Not on file Not on file Not on file documented as of this encounter Plan of Treatment Not on file documented as of this encounter Procedures Procedure Name Priority Date/Time Associated Diagnosis Comments MTC XR CHEST PA AND LATERAL 12/25/2021 5:16 PM CDT documented in this encounter Results * RAD Chest PA and lateral 2 views (12/25/2021 5:16 PM CDT) Anatomical Region Laterality Modality Other 12/25/2021 5:16 PM CDT Narrative 12/25/2021 5:[address] PM [address]T [address] NAME: ALYSSA SMITH /AGE/SEX: 2005 PHYSICIAN: Michelle Asher M.D. ADMIT DATE: UNIT #: [id number] DIS DATE: LOC/RM/BED: D01RO- [facility] RAD/XR CHEST PA LAT 2 VIEWS : [id number] ORDER DATE: 12/25/21 REPORT # : [id number] CHEST RADIOGRAPH AP/LATERAL 2 VIEWS Exam Date/Time: 12/25/2021 Indications: R07.9, chest pain Comparison: 12/19/2020 RESULTS: 1. Lines, Tubes, and Devices: N/A 2. Lungs and Pleura: Lungs are clear of consolidations. No pleural effusions or pneumothorax. 3. Cardiomediastinal silhouette: Within normal limits. 4. Other: Osseous structures are unremarkable. IMPRESSION: No acute cardiopulmonary finding. DICTATED: Tod Zamora M.D. <Electronically signed by Tod Zamora M.D. in OV> Tod Zamora M.D. 12/25/211721 DRAFT UNTIL SIGNED S: Signed 15 15 PS REPORT#:[id number] CC: Michelle Asher M.D. of 1 Procedure Note System, Provider Not In - 12/25/[address] NAME: ALYSSA SMITH GDOB/AGE/SEX: 2005 PHYSICIAN: Michelle Asher M.D. ADMITDATE: UNIT #: [id number] DISDATE: /RM/BED: [id number]- [facility] RAD/XR CHEST PA LAT 2 VIEWS : [id number] ORDER DATE: 12/25/21 REPORT # : [id number] CHEST RADIOGRAPH AP/LATERAL 2 VIEWS Exam Date/Time: 12/25/2021 Indications: R07.9, chest pain Comparison: 12/19/2020 RESULTS: 1. Lines, Tubes, and Devices: N/A 2. Lungs and Pleura: Lungs are clear of consolidations. No pleuraleffusions or pneumothorax. 3. Cardiomediastinal silhouette: Within normal limits. 4. Other: Osseous structures are unremarkable. IMPRESSION: No acute cardiopulmonary finding. DICTATED: Tod Zamora M.D. <Electronically signed by Tod Zamora M.D. in OV> Tod Zamora M.D. 12/25/211721 DRAFT UNTIL SIGNED S: Signed 15 15 PS REPORT#:[id number] CC: Michelle Asher M.D. of 1 Michelle Asher MD [facility] DIAGNOSTIC [place] ORDERABLES documented in this encounter Visit Diagnoses Not on filedocumented in this encounter Additional Health Concerns Infection Onset Date Last Indicated Resolved Time COVID-19 Suspected 12/31/2021 12/31/2021 2 10:54 PM CDT COVID-19 Suspected 07/22/2022 07/22/2022 3 11:20 PM CDT documented as of this encounter Care Teams Prune Washer Relationship Specialty Start Date End Date Michelle Asher MD [address] [address] PCP - General Pediatrics 12/04/14 03/02/24 documented as of this encounter
--- OUTSIDE RECORDS SUMMARY | 2025-01-10 20:16 | XMS_ITS | Encounter Summary ---
Author Organization [facility] Address [address] [place] [address] Care Team Providers Care Investment Banker Name Role Phone Unavailable Primary Care Provider Unavailabl e Encounter Details Date Type Department Care Team (Late st Contact Info) Description 10/24/2010 [place] Conversion Encounter [facility] DEPT Social History Tobacco Use Types Packs/Day Years Used Date Smoking Tobacco: Never Assessed Comments Unknown Sex and Gender Information Value Date Recorded Sex Assigned at Not on file Legal Sex Female 8:24 PM CDT Gender Identity Not on file Sexual Orientation Not on file documented as of this encounter Progress Notes * CONVERSION, MERIDIAN - 09/02/2011 6:10 AM CDT ACCOMPANIED BY: Mother. The patient presents for a kindergarten exam. CURRENT HEALTH HABITS: DIET: Normal well-balanced diet for age, 1% milk, milk, The child eats other dairy products well. BOWELS: Normal appearing stools. URINATION: Voiding well without obstructive or irritative symptoms. SLEEP: The patient sleeps 10 hours at night. OTHER: There are no visual or hearing problems. The patient has regular dental care. DEVELOPMENTAL/BEHAVIORAL: No risk factors noted for 5 years of age. VITAL SIGNS: VS-BLOOD PRESSURE: 96/48 Right Arm Sitting VS-HEIGHT: 45in VS-WEIGHT: 49lbs ALLERGIES: NKDA MEDICATIONS: NO MEDS, status: NEW HISTORY, 2005. The patient has been screened for lead and TB and is found to be not at risk for either. DIABETES FAMILY HISTORY SCREENING: THE PATIENT'S MATERNAL GRANDMOTHER HAS TYPE II DIABETES. The patient was checked in by Nik Mckeon RN. PHYSICAL EXAM (NORMAL FINDINGS): GENERAL: The patient [...] V20.2-ROUTINE INFANT OR CHILD HEALTH CHECK ASSESSMENT: KINDERGARTEN EXAM. Patient demonstrates normal rate of growth. The patient demonstratesnormal development for age. The patient is up to date on immunizations. IMMUNIZATION ORDER: MMR, Varivax, DTaP, IPV. IMMUNIZATIONS: DTAP, 0.5, MILLILITERS, INTRAMUSCULAR INJECTION, Left Thigh, given by laron on 10/24/2010; Verbalconsent obtained, literature given; Inactivated Poliovirus Vaccine, 0.5, MILLILITERS, SUBCUTANEOUS INJECTION, Left Thigh, given by laron on 10/24/2010; Verbal consent obtained, literature given; Measles, Mumps, Rubella, 0.5, MILLILITERS, SUBCUTANEOUS INJECTION, Right Thigh, [facility]2010; Verbal consent obtained, literature given; Varicella (Chicken Pox), 0.5, MILLILITERS, SUBCUTANEOUS INJECTION, Right Thigh, [facility] 10/24[facility]; Verbal consent obtained, literature given; ANTICIPATORY CARE: General health habits. General nutrition. School readiness. Patient is to return on an as needed basis or to call with concerns or changes in condition. Electronically Signed by: Kell Woods M.D. on October 6:10 pm Received for:ALLSCRIPTS TEST Sep 02 2011 6:10AM Central Standard Time documented in this encounter Plan of Treatment Not on file documented as of this encounter Visit Diagnoses Not on filedocumented in this encounter
--- OUTSIDE RECORDS SUMMARY | 2025-01-10 20:16 | XMS_ITS | Clinical Summary ---
Author Organization [facility] Address [address] [place] [address] Care Team Providers Care Sports Anchor Name Role Phone Unavailable Primary Care Provider Unavailabl e Source Comments [facility] is the largest [facility] health system based in [place]. We offer more than 150 locations around the [facility], in communities large and small, so health care access is convenient. With 19 [facility] and [facility] hospitals, over 25 long-term care and assisted facilities, dozens of physician offices and health centers, home care, hospice, behavioral health services and more. Currently six of our Hospitals are live on the [place] system, they are: [facility] Allergies No known active allergies Medications Medication Sig Dispensed Refills Start Date End Date Status ibuprofen (ADVIL,MOTRIN) 200 MG tablet Take 1 tablet by mouth at bedtime. Active acetaminophen (TYLENOL) 500 MG tablet Take 1 tablet by mouth every 6 (six) hours as needed for Pain. Active albuterol (VENTOLIN HFA) 108 (90 Base) MCG/ACT inhalerIndications:Cou gh Inhale 2 puffs into the lungs 3 (three) times daily. 1 each 3 12/12/2020 Active SPIRIVA RESPIMAT 1.25 MCG/ACT AERS INHALE 2 PUFFS BY MOUTH ONCE DAILY 12/02/2021 Active ADVAIR HFA 115-21 MCG/ACT inhaler 08/25/2022 Active JUNEL FE 04/11 1-20 MG-MCG per tablet Take 1 tablet by mouth once daily. 07/25/2022 Active Active Problems Problem Noted Date Diagnosed Date Syncope 10/20/2022 Dyspnea on exertion 06/13/2021 Mild persistent asthma without complication 09/21 Orthostatic hypotension 10/12/2019 Cervical adenopathy 12/03/2018 Recurrent headache 12/03/2018 Encounter for routine child health examination without abnormal findings 11/04/2016 Sore throat 09/12/2016 Resolved Problems Problem Noted Date Diagnosed Date Resolved Date Acute bacterial conjunctivitis of left eye 11/17/2018 11/23/2018 Concussion with no loss of consciousness 11/06/2018 11/23/2018 Acute mucoid otitis media of right ear 11/01/2018 11/23/2018 Left knee injury, initial encounter 09/26/2017 10/21/2018 Acute pain of left knee 09/26/201703/2018 Viral meningitis, unspecified 09/26/2016 10/21/2018 Epigastric pain 09/26/2016 10/21/2018 Fever 09/19/2016 10/21/2018 Persistent fever 09/16/2016 10/21/2018 Strep pharyngitis 09/12/2016 10/21/2018 Cough 12/04/2014 09/19/2016 Immunizations Name Administration Dates Next Due Bexsero Meningococcal B, OMV 08/13/2023,04/15/19 24 DTaP 10/24/2010 DTaP / Hep B / IPV 02/18/2006,2005, 006 DTaP / HiB 11/14/2006 Flumist Trivalent 02/06/2010,01/04/2010 HPV 9 Gardasil 09/01/2017,11/04/2016 Hepatitis A PED/ADOLESCENT 11/07/2008,09/22/2007 HiB (PRP-T) 2005,2005 INFLUENZA TRIVALENT PF 03/18/2006,02/18/2006 IPV 10/24/2010 Influenza Nasal Live Quadrivalent 02/06/2010, Influenza Quadrivalent PF 03/20/2022,01/09/2021, 01/17/2016 Influenza Quadrivalent, Cell Culture PF 04/04/2023 MENACTRA MENINGOCOCCAL MCV4P 11/04/2016 MENVEO MENINGOCOCCAL MCV40 08/27/2022 MMR 10/24/2010,08/13/2006 Dexrex [employer] COVID-19 vac cine mRNA (PF) 30 mcg/0.3mL (12+years) 04/30/2021,09/06/2020,08/16/2020 Pneumococcal Conjugate 13-Va lent (Dmaponh03) 08/13/2006,05/21/2006,2005,10/21 Varicella 10/24/2010,08/13/2006 tdap 11/04/2016 Family History Medical History Relation Name Comments COPD Maternal Grandfather Cancer Maternal Grandfather Lung Ca ncer Diabetes Maternal Grandmother Hypertension Maternal Grandmother Transient ischemic attack Maternal Grandmother Cancer Natural Father Cancer Paternal Grandfather Prostat e Cancer High cholesterol Paternal Grandfather Hypertension Paternal Grandfather Relation Name Status Comments Maternal Grandfather Maternal Grandmother Alive Natural Father Alive Natural Mother Alive Natural Sister Sandy Alive Paternal Grandfather Alive Paternal Grandmother Alive Social History Tobacco Use Types Packs/Day Years Used Date Smoking Tobacco: Never Passive Smoke Exposure: Never Smokeless Tobacco: Never Alcohol Use Standard Drinks/Week Comments Never 0 (1 standard drink = 0.6 oz pur e alcohol) Sex and Gender Information Value Date Recorded Sex Assigned at Not on file Gender Identity Not on file Sexual Orientation Not on file Job Start Date Occupation Industry Not on file Not on file Not on file Last Filed Vital Signs Vital Sign Reading Time Taken Comments Blood Pressure 114/71 08/13/2023 11:29 AM CDT Pulse 91 08/13/2023 11:29 AM CDT Temperature 36.8 C (98.2 F) 08/13/2023 11:29 AM CDT Respiratory Rate 20 08/13/2023 11:2 9 AM CDT Oxygen Saturation 99% 08/13/2023 11: 29 AM CDT Inhaled Oxygen Concentration - - Weight 56.8 kg (125 lb 3.2 oz) 08/13/19 11:29 AM CDT Height 168.3 cm (5' 6.25) 08/13/2023 1 1:29 AM CDT Body Mass Index 20.06 08/13/2023 11:29 AM CDT Body Mass Index Percentile 33.62% 08/12 11:29 AM CDT Growth Chart: [facility] (Girls, 2- 20 Years) Plan of Treatment Health Maintenance Due Date Last Done Comments ASTHMA ACTION PLAN 1 YEAR 2010 DEPRESSION SCREENING 1 YEAR 2017 HIV SCREENING 2020 ASTHMA CONTROL TEST 1 YEAR 08/12/202408/12, 04/15/2023, 03/27/2022, Additional history exists CHLAMYDIA SCREENING 2024 08/13/2023, 04/15/2023, 03/27/2022, Additional history exists COVID-19 VACCINATION ( season) 2024 04/04/2023, 04/30/2021, 09/06/2020, Additional history exists Influenza Vaccine (#1) 2024 , 03/20/2022, 01/09/2021, Additional history exists DTAP,TDAP AND TD VACCINES (7 - Td or Tdap) 11/04/2026 11/04/2016, 10/24/2010, 11/14/2006, Additional history exists RSV Vaccine Patients 60 Years and Older (1 - 1-dose 75+ series) 2080 Pneumococcal Vaccine: Peds (0-5 Yrs) and At-Risk (6-64 Yrs) Completed 08/13/2006, 05/21/2006, 2005, Additional history exists INFLUENZA VACCINE Discontinued 10/08/2015 (De clined), 10/08/2015 (Declined) HPV VACCINATION Discontinued 09/01/2017, 11/04/2016 RSV Vaccine Pediatric Patients under 20 months Aged Out No longer eligi ble based on patient's age to complete this topic Procedures Procedure Name Priority Date/Time Associated Diagnosis Comments GC CHLAMYDIA PROBE Routine 08/13/2023 11 :41 AM CDT from Last 3 Months or Most Recently Relevant to Health Maintenance Results * GC Chlamydia Probe (08/13/2023 11:41 AM CDT) SOURCE URINE [facility] SOURCE COMMENT see below [facility] Comment: The Alinity m STI Assay for urine must be performed on first-catch specimens (first 20-30 mL of the urine stream). C. Trachomatis by PCR Not Detected Not Detect [facility] STI2 COMMENT see below [facility] Comment: Testing performed using the Alinity m STI AMP Kit ([employer]). False negative results of Not Detected can be observed in the presence of the following interfering substances: mucus, seminal fluid, gamma globulin, glucose, feces, and certain hemorrhoidal creams or toothpaste brands. Recollection is suggested if clinically indicated. A result of Not Detected does not preclude the possibility of infection and results should be interpreted in conjunction with other clinical and laboratory findings. The presence of CT and NG nucleic acids does not establish the causative agent for salpingitis or PID. The absence of nucleic acids for these targets does not exclude related infection as a cause of ascending infection. This assay has not been evaluated with patients who are currently being treated with antimicrobial agents active against CT, NG, TV, and MG and should not be used to determine therapeutic success or failure as nucleic acids may persist after appropriate antimicrobial therapy. N. GONORRHOEAE BY PCR Not Detected Not Detect [facility] 08/13/2023 11:4 1 AM CDT Michelle Asher MD MICROBIOLOGY - GEN ERAL ORDERABLES [facility] from Last 3 Months or Most Recently Relevant to Health Maintenance
--- OUTSIDE RECORDS SUMMARY | 2025-01-10 20:16 | XMS_ITS | Encounter Summary ---
Author Organization [facility] Address [address] [place] [address] Care Team Providers Care Marketing Pr Intern Name Role Phone Michelle Asher MD Primary Care Provider +1- [phone] Reason for Referral * Specialty Diagnoses / Procedures Referred By Contac t Referred To Contact [facility] [place] [address] [facility] [address] [place] [address] Referral ID Status Reason Start Date Expiration Date Visits Re quested Visits Authorized S AND MARKETING SPECIALIST Encounter Details Date Type Department Care Team (Late st Contact Info) Description 02/23/[address] [facility] [address] [facility] [address] [place] [phone] Provider, MD Ricky [facility] [place] [address] Social History Tobacco Use Types Packs/Day Years [...] Procedure Name Priority Date/Time Associated Diagnosis Comments AMB REFERRAL TO PEDIATRIC PULMONOLOGY Routine 02/11/2023 documented in this encounter Results * Ambulatory referral to Pediatric Pulmonology (02/11/2023) Historical Provider MD OUTPATIENT REFERR AL ORDERABLES documented in this encounter Visit Diagnoses Not on filedocumented in this encounter Care Teams Marketing Pr Intern Relationship Specialty Start Date End Date Michelle Asher MD [address] [address] PCP - General Pediatrics 12/04/14 03/02/24 documented as of this encounter
--- OUTSIDE RECORDS SUMMARY | 2025-01-10 20:16 | XMS_ITS | Encounter Summary ---
Author Organization [facility] Address [address] [place] [address] Care Team Providers Care Lehr Loader Name Role Phone Unavailable Primary Care Provider Unavailabl e Encounter Details Date Type Department Care Team (Late st Contact Info) Description 06/09/2008 [place] Conversion Encounter [facility] CON[facility] DEPT Social History [...] CONVERSION, MERIDIAN - 09/02/2011 6:10 AM CDT PATIENT'S HOME PHONE: PATIENT'S WORK PHONE: DATE: 06/09/2008. DATE: 06/09/2008. DATE: 06/07/2008. ( after hours call) AGE: 2 years. PATIENT GENERATED CALL: CALL FROM: Patient's mother. VOMITING: The patient began vomiting last night. The child is vomiting 1 to 3 times/day. URINATION:. DRINKING: The child is drinking. DOCTOR'S COMMENTS: BETHANIE PELLETIER' COMMENTS: pt vomiting x 2 days just a few times a day with mild abdominal pain. She is drinking fluids and is afebrile. Discussed symptomatic care listed below and to call office for further questions or if symptoms worsen. ACTION: PATIENT INSTRUCTIONS:. The patient (patient's parent) was instructed to take clear liquids (such asPedialyte), slowly advance to BRAT diet and bland diet which may include yogurt, but no other dairyproducts until better. The patient (patient's parent) was instructed to monitor oral intake and urinary output and to watch for other signs of dehydration. Call back if not better in 1 day. Call back if concerns or questions. Electronically Signed by: BLAKE Vargas on Monday, June 09, 2008 9:31 am Electronically Signed by: Mehdi Castro M.D. on Monday, June 09, 2008 9:40 am Received for:ALLSCRIPTS TEST Sep 02 2011 6:10AM Central Standard Time documented in this encounter Plan of Treatment Not on file documented as of this encounter Visit Diagnoses Not on filedocumented in this encounter
--- OUTSIDE RECORDS SUMMARY | 2025-01-10 20:16 | XMS_ITS | Encounter Summary ---
Author Organization [facility] Address [address] [place] [address] Care Team Providers Care Dude Ranch Manager Name Role Phone Michelle Asher MD Primary Care Provider [phone] Reason for Referral * Specialty Diagnoses / Procedures Referred By Contac t Referred To Contact [facility] [place] [address] [facility] [address] [place] [address] Referral ID Status Reason Start Date Expiration Date Visits Re quested Visits Authorized Encounter Details Date Type Department Care Team (Late st Contact Info) Description 12/19/2021 External Result Scan [facility] [address] [facility] [address] [place] [phone] ProviderRicky MD [facility] [place] [address] Social History Tobacco Use Types [...] Comments AMB REFERRAL TO PEDIATRIC PULMONOLOGY Routine 12/19/2021 documented in this encounter Results * Ambulatory referral to Pediatric Pulmonology (12/19/2021) Historical Provider OUTPATIENT REFERR AL ORDERABLES documented in this encounter Visit Diagnoses Not on filedocumented in this encounter Additional Health Concerns Infection Onset Date Last Indicated Resolved Time COVID-19 Suspected 12/31/2021 12/31/2021 2 10:54 PM CDT COVID-19 Suspected 07/22/2022 07/22/2022 3 11:20 PM CDT documented as of this encounter Care Teams Dude Ranch Manager Relationship Specialty Start Date End Date Michelle Asher MD [address] [address] PCP - General Pediatrics 12/04/14 03/02/24 documented as of this encounter
--- OUTSIDE RECORDS SUMMARY | 2025-01-10 20:16 | XMS_ITS | Encounter Summary ---
Author Organization [facility] Address [address] [place] [address] Care Team Providers Care Steam Presser Name Role Phone Unavailable Primary Care Provider Unavailabl e Encounter Details Date Type Department Care Team (Late st Contact Info) Description 05/25/2008 [place] Conversion Encounter [facility] DEPT Social History [...] for an illness exam. CHIEF COMPLAINT: FEVER: The fever began yesterday. Associated symptoms include: Cough, Ear pain, Stomach ache, Decreased sleep, Decreased appetite. The temperature was taken in the axilla. Maximum temp: 102.0. ALLERGIES: NKDA MEDICATIONS: MOTRIN ORAL SUSPENSION 40 MG/ML, status: NEW HISTORY, 05/25/2008. VITAL SIGNS: VS-TEMPERATURE: 99.1??f Axillary The patient was checked in by Nik Mckeon RN. GENERAL: Healthy appearing, alert, normally nourished, developmentally normal and in no acute distress. PHYSICAL EXAM: EYES: CONJUNCTIVAE/LIDS: Conjunctivae and lids appear normal. EARS, NOSE, MOUTH AND THROAT: EXTERNAL/ EARS AND NOSE: Overall appearance normal with no scars, lesions or masses. EARS: Left external auditory canal normal, The left TM is INFLAMED AND BULGING WITH PURULENT FLUID,right tympanic membrane shiny without retraction. Canal unremarkable. NOSE: TURBINATES SWOLLEN BILATERALLY, TURBINATES RED BILATERALLY, CLEAR NASAL DISCHARGE NOTED BILATERALLY. ORAL: Inspection of gums, lips, palate, and teeth normal. No scars, lesions, or masses. Oral mucosaunremarkable with non-inflamed posterior pharynx. RESPIRATORY: Clear to auscultation bilaterally. Normal respiratory effort. GASTROINTESTINAL: ABDOMEN: Soft, non-tender, without masses, hernias or bruits. Bowel sounds are active in all 4 quadrants. LIVER/KIDNEY/SPLEEN: Liver is smooth, firm, and nontender. No hepatomegaly, hepatojugular reflex orpulsations noted. Kidneys nonpalpable and without CVA tenderness. No splenomegaly or tenderness. LYMPHATICS: No lymphadenopathy in the neck/head. ASSESSMENT/PLAN: 382.9-UNSPECIFIED OTITIS MEDIA Well appearing and afebrile ASSESSMENT: The patient was advised to use nasal saline prn, use a humidifier. The patient was advised to treat the fever with Motrin. MEDICATIONS: AMOXICILLIN ORAL SUSPENSION WHEN RECONSTITUTED 400 MG/5ML, 1 +1/2 tsp po BID x 10 days, 10 Duration/Days Supply, status: NEW PRESCRIPTION, 05/25/2008, Comment: KERWIN # [id number]. Patient is to return on an as needed basis. Patient is instructed to call with concerns or worries about condition, call if no improvement in 2 days. Electronically Signed by: BLAKE Vargas on May 12:09 pm Received for:ALLSCRIPTS TEST Sep 02 2011 6:09AM Central Standard Time documented in this encounter Plan of Treatment Not on file documented as of this encounter Visit Diagnoses Not on filedocumented in this encounter
--- OUTSIDE RECORDS SUMMARY | 2025-01-10 20:16 | XMS_ITS | Encounter Summary ---
Author Organization [facility] Address [address] [place] [address] Care Team Providers Care Drafter Seismograph Name Role Phone Unavailable Primary Care Provider Unavailabl e Encounter Details Date Type Department Care Team (Late st Contact Info) Description 01/04/2010 [place] Conversion Encounter [facility] CON[facility] DEPT Social History [...] BY: Mother. The patient presents for a 4 year day care exam. CURRENT HEALTH HABITS: DIET: Normal well-balanced diet for age, eats fruits well, eats vegetables well, eats meats well, 2% milk, 1 glass of milk per day, The child eats other dairy products well. No known food allergies.On vitamin supplements. BOWELS: Normal appearing stools.Has daily bowel movements. URINATION: Voiding well without obstructive or irritative symptoms. SLEEP: The child sleeps 10 hours at night, to 11 hours at night.The infant sleeps in his/her own bed. OTHER: There are no visual or hearing problems.THE PATIENT HAS NEVER BEEN TO THE DENTIST. DEVELOPMENTAL/BEHAVIORAL: No risk factors noted for 4 years of age. VITAL SIGNS: VS-BLOOD PRESSURE: 74/52 Right Arm Sitting VS-HEIGHT: 43in VS-WEIGHT: 21ckh7br ALLERGIES: NKDA GENERAL CHIEF COMPLAINT: Mom wonders whether child has allergies. Child has had cough on and off for 1 week. No fever. + family of history of allergies. GENERAL: Healthy appearing, alert, normally nourished, developmentally normal and in no acute distress. PHYSICAL EXAM (NORMAL FINDINGS): GENERAL: The patient is awake, alert, and appropriate for age. No acute distress. EYES: Pupils equally round and reactive to light. Extra ocular movement intact. No discharge. Conjunctivae clear. EARS, NOSE, MOUTH, THROAT: tonsils are 4+ NECK/THYROID: Supple, without lymphadenopathy, no thyroid enlargement. [...] age. ASSESSMENT/PLAN: V20.2-ROUTINE OR CHILD HEALTH CHECK IMMUNIZATION ORDER: Flumist. IMMUNIZATIONS: FLU MIST INTRANASAL, 0.2, INHALANT, INHALATION, Nose/Nostrils, given by lo on 01/04/2010; Verbal consent obtained, literature given; Electronically Signed by: Mehdi Castro M.D. on Monday, January 04, 2010 4:12 pm Received for:ALLSCRIPTS TEST Sep 02 2011 6:09AM Central Standard Time documented in this encounter Plan of Treatment Not on file documented as of this encounter Visit Diagnoses Not on filedocumented in this encounter
--- OUTSIDE RECORDS SUMMARY | 2025-01-10 20:16 | XMS_ITS | Encounter Summary ---
Author Organization [facility] Address [address] [place] [address] Care Team Providers Care Cop Name Role Phone Unavailable Primary Care Provider Unavailabl e Encounter Details Date Type Department Care Team (Late st Contact Info) Description 06/05/2008 [place] Conversion Encounter [facility] CON[facility] DEPT Social History [...] CDT PATIENT'S HOME PHONE: PATIENT'S WORK PHONE: AGE: 2 years. PATIENT GENERATED CALL: CALL FROM: Patient's mother.MEL, , WANTS NURSE TO CALL RE PT WAS IN FOR FEVERS AND GIVEN AMOXICILLEN. SHE FINISHED RX. YESTERDAY SHE HAD VOMITING AND DIARRHEA. TODAY SHE'S NOT VOMITED, BUT SEEMS WARM. MOM'S THERMOMETER IS BROKEN. SHOULD SHE BE SEEN? PLEASE RETURN HER CALL. The call was taken by Sarita Spear. ACTION: The patient (patient's parent) was given instructions on resting the stomach, then introducing clear liquids 1 tsp every 10 minutes, and double the amount each hour. Advised that if the child vomits during this treatment, rest the stomach for 1 hour and start over, but with a smaller amount. Discussed introduction of bland foods after 8 hours without vomiting. The patient (patient's parent) was instructed to take clear liquids (such as Pedialyte), slowly advance to BRAT diet and bland diet which may include yogurt, but no other dairy products until better. The patient (patient's parent) was instructed to monitor oral intake and urinary output and to watch for other signs of dehydration. The call was returned by Crispin. Electronically Signed by: Mehdi Castro M.D. on Thursday, June 05, 2008 1:18 pm Received for:ALLSCRIPTS TEST Sep 02 2011 6:09AM Central Standard Time documented in this encounter Plan of Treatment Not on file documented as of this encounter Visit Diagnoses Not on filedocumented in this encounter
--- OUTSIDE RECORDS SUMMARY | 2025-01-10 20:16 | XMS_ITS | Encounter Summary ---
Author Organization [facility] Address [address] [place] [address] Care Team Providers Care Rebar Worker Name Role Phone Unavailable Primary Care Provider Unavailabl e Encounter Details Date Type Department Care Team (Late st Contact Info) Description 08/24/2009 [place] Conversion Encounter [facility] CON[facility] DEPT Social History [...] illness exam. CHIEF COMPLAINT: FEVER: Maximum temp: 103.5.The temperature was taken orally.The fever began yesterday. Associated symptoms include:. fever is not responding to the motrin COUGH/COLD SXS: The patient has had a cough for 2 weeks, the cough is wet. also has had nasal drainage as well. ALLERGIES: NKDA MEDICATIONS: MOTRIN ORAL SUSPENSION 40 MG/ML, status: NEW HISTORY, 05/25/2008. VITAL SIGNS: VS-TEMPERATURE: 102.6??f Oral VS-WEIGHT: 40lbs The patient was checked in by Krissy Segundo CMA. GENERAL: APPEARS TIRED. PHYSICAL EXAM (NORMAL FINDINGS): GENERAL: The patient is awake, alert, and appropriate for age. No acute distress. EYES: Pupils equally round and reactive to light. Extra ocular movement intact. No discharge. Conjunctivae clear. EARS, NOSE, MOUTH, THROAT: SEE BELOW. NECK/THYROID: Supple, without lymphadenopathy, no thyroid enlargement. RESPIRATORY: Lungs clear to auscultation bilaterally. Normal respiratory effort. No wheezing, rales, or congestion. CARDIOVASCULAR: Regular rate and rhythm. No murmur. GASTROINTESTINAL: Abdomen is soft, non-tender, and without masses. Normal active bowel sounds. No hepatosplenomegaly. GENITOURINARY: Deferred. LYMPHATICS: No lymphadenopathy. SKIN: No rashes. Normal color. No lesions. NEUROLOGICAL: No meningeal signs. Reflexes are normal. No deficits noted. PHYSICAL EXAM: EARS, NOSE, MOUTH AND THROAT: EXTERNAL/ EARS AND NOSE: Overall appearance normal with no scars, lesions or masses. EARS: Tympanic membranes shiny without retraction. Canals unremarkable. Hearing grossly normal. NOSE: TURBINATES SEVERELY SWOLLEN BILATERALLY, PURULENT NASAL DISCHARGE NOTED BILATERALLY. ORAL: BOTH TONSILS ARE MODERATELY ENLARGED, BOTH TONSILS ARE MODERATELY ERYTHEMATOUS, ULCERATIONS NOTED ON TONSILS BILATERALLY. RESPIRATORY: Clear to auscultation bilaterally. Normal respiratory effort. LYMPHATICS: No lymphadenopathy in the neck, axillae, or groin. ASSESSMENT/PLAN: 074.0-HERPANGINA ASSESSMENT: bland diet. motrin and tylenol for pain and fever 461.9-SINUSITIS ACUTE MEDICATIONS: AMOXICILLIN ORAL SUSPENSION WHEN RECONSTITUTED 400 MG/5ML, 2 TSP PO BIDX 10 DAYS, 200 MILLILITERS Dispensed, 10 Duration/Days Supply, status: NEW PRESCRIPTION, 08/24/2009. tylenol 160 mg/5 ml 1.5 tsp po now 4:45 pm nam if allergy suspected zyrtec 1 tsp po daily. discussed immunocap test--mtr will consider. discussed that we are not giving the antibiotic for the herpangina but for the sinusitis. PRESCRIPTION HAS BEEN FAXED The patient's pharmacy is [facility]. Patient is instructed to call with concerns or changes in condition, and is instructed to call withconcerns or worries about condition, if no improvement. Electronically Signed by: BLAKE Fernandes on Monday, August 24, 2009 5:21 pm Received for:ALLSCRIPTS TEST Sep 02 2011 6:09AM Central Standard Time documented in this encounter Plan of Treatment Not on file documented as of this encounter Visit Diagnoses Not on filedocumented in this encounter
--- OUTSIDE RECORDS SUMMARY | 2025-01-10 20:16 | XMS_ITS | Encounter Summary ---
Author Organization [facility] Address [address] [place] [address] Care Team Providers Care Data Collection Technician Name Role Phone Unavailable Primary Care Provider Unavailabl e Encounter Details Date Type Department Care Team (Late st Contact Info) Description 02/06/2010 [place] Conversion Encounter [facility] CON[facility]ST[facility] DEPT Social History [...] CONVERSION, MERIDIAN - 09/02/2011 6:09 AM CDT PRESURGICAL EXAM SURGICAL PROCEDURE(S) SCHEDULED: The patient is scheduled for tonsillectomy and adenoidectomy.Dr. Harper REASON FOR SURGERY: chronic tonsil swelling and tonsil stones. DATE OF SURGERY: The surgery is scheduled for Feb 13, 2011. ACCOMPANIED BY: Mother. VITAL SIGNS: VS-TEMPERATURE: 98.1??f Oral Comments: temporal VS-BLOOD PRESSURE: 90/54 Right Arm Sitting VS-HEIGHT: 43.75in VS-WEIGHT: 44lbs BMI: 16.16 ALLERGIES: NKDA MEDICATIONS: NO MEDS, status: NEW [...] masses. Normal active bowel sounds. No hepatosplenomegaly. LYMPHATICS: No lymphadenopathy. SKIN: No rashes. Normal color. No lesions. PSYCHIATRIC: Mood and affect appropriate for age. ASSESSMENT/PLAN: 474.1-HYPERTROPHY OF TONSILS AND ADENOIDS V72.84-PREOPERATIVE EXAM ASSESSMENT: The patient is cleared for surgery. IMMUNIZATION ORDER: Flumist. IMMUNIZATIONS: FLU MIST INTRANASAL, 0.2, INHALANT, INHALATION, Nose/Nostrils, given by lo on 02/06/2010; Verbal consent obtained, literature given; Patient is to return on an as needed basis or to call with concerns or changes in condition. Electronically Signed by: Kell Woods M.D. on Saturday, February 06, 2010 10:35 am Received for:ALLSCRIPTS TEST Sep 02 2011 6:09AM Central Standard Time documented in this encounter Plan of Treatment Not on file documented as of this encounter Visit Diagnoses Not on filedocumented in this encounter
[2025-01-10 20:57] LABS: BEDSIDEPREGUCG Negative (Negative)
[2025-01-10 21:03] LABS: Hematocrit 34.8 % (37.0-47.0); Hemoglobin 11.6 g/dL (12.0-15.0); Immature Granulocyte Percent A 0.3 % (0-0.5); Lymphocytes Absolute Auto 2.86 K/mm3 (0.9-3.2); Mean Corpuscular HGB Conc 33.3 g/dl (32-36); Mean Corpuscular Hemoglobin 30.6 pg (26-34); Mean Corpuscular Volume 91.8 fl (80-100); Nucleated Red Blood Cells Absolute Auto 0.000 K/mm3 (0.0-0.012); Nucleated Red Blood Cells Perc 0.0 % (0.0-0.2); Platelet Count Result 300 k/mm3 (150-375); Red Blood Count 3.79 M/mm3 (4.2-5.4); White Blood Count 7.6 K/mm3 (4.5-10.0)
[2025-01-10 21:11] LABS: Alanine Aminotransferase 17 U/L (6-35); Albumin Level 4.4 g/dL (3.7-5.6); Alkaline Phosphatase 51 U/L (45-116); Anion Gap 8 mmol/L (4-12); Aspartate Amino Transferase 40 U/L (14-36); Bilirubin,Total 0.4 mg/dL (0.2-1.3); Blood Urea Nitrogen 8 mg/dL (8-21); Calcium 9.4 mg/dL (8.9-10.7); Carbon Dioxide 25 mmol/L (22-30); Chloride 103 mmol/L (98-107); Estimated CRCL calculation 115 ml/min; Estimated Glomerular Filt Rate > 60; Glucose 95 mg/dL (65-110); Lipase 52 U/L (23-300); Potassium 3.7 mmol/L (3.4-5.0); Sodium 136 mmol/L (134-143); Total Protein 7.7 g/dL (6.3-8.6)
[2025-01-10 21:15] LABS: Add Urine Microscopic? YES; Appearance Urine Clear (Clear); Glucose Urine UA Negative (Negative); Leukocyte Esterase Ur 2+ LEU/UL (Negative); Need Manual Microscopic Reviewed; Nitrate Urine Negative (Negative); Non Pathogenic Casts 0-2; Specific Grav Ur 1.009 (1.001-1.035)
--- NOTE | 2025-01-10 21:27 | ED.ABDPAIN ---
HPI - Abdominal Pain General Chief Complaint: Abdominal Pain Stated Complaint: abd pain, cramping, bloating x 2 months Time Seen by Provider: 01/10/25 20:36 History of Present Illness HPI narrative: Patient is a 19-year-old female who presents to the ER with generalized abdominal pain and irregular bowel movements. She reports the pain started 2-3 months ago but has become worse, especially over the last 2 weeks. Patient denies any urinary symptoms, recent fevers, dietary changes, or acute back pain. She endorses a history asthma and recent hip surgery. Patient reports when she has bowel movements they are firm and she has to ?force them out. She reports she does not use alcohol regularly or marijuana. Related Data Home Medications ?Medication ?Instructions ?Recorded ?Confirmed ?Last Taken ?Type albuterol sulfate 90 mcg/actuation inhalation 05/10/24 Unknown History aerosol inhaler mometasone-formoterol HFA 200 inhalation 05/10/24 Unknown History mcg-5 mcg/actuation aerosol inhaler (Dulera) tiotropium bromide 1.25 inhalation 05/10/24 Unknown History mcg/actuation mist for inhalation (Spiriva Respimat) Allergies Allergy/AdvReac Type Severity Reaction Status Date / Time No Known Allergies Allergy Verified 05/10/24 16:37 Review of Systems Review of Systems: All systems reviewed & are unremarkable except as noted in HPI and below Exam Narrative: GENERAL: Well appearing, well-nourished, non-toxic, in no acute distress. HEAD: Normocephalic, atraumatic. NECK: Supple. No adenopathy, no masses. RESPIRATORY: Airway patent, respirations nonlabored. Clear to auscultation bilaterally, no rales, rhonchi, wheezing. CARDIOVASCULAR: Regular rate and rhythm without murmurs, rubs, or gallops. Peripheral pulses 2+ and equal bilaterally. ABDOMINAL: Soft, tender all 4 quadrants, nondistended, no hepatosplenomegaly. Normoactive BS. MUSCULOSKELETAL: Moves all extremities. Strength/ROM intact without gross deformities. SKIN: Warm, dry, normal color. No rashes. NEURO: A&O X3. Speech clear. Cranial nerves II-XII intact. No ataxic movements. PSYCHIATRIC: Appropriate mood and affect. Normal interaction. Course Vital Signs Vital signs: Vital Signs Temperature 36.7 C 01/10/25 20:14 Pulse Rate 102 H 10/21/25 20:14 Respiratory Rate 16 01/10/25 20:14 Blood Pressure 140/72 01/10/25 20:14 Pulse Oximetry 100 01/10/25 20:14 Oxygen Delivery Room Air 01/10/25 20:14 Temperature 36.7 C 01/10/25 20:14 Pulse Rate 91 01/10/25 22:45 Respiratory Rate 14 01/10/25 22:45 Blood Pressure 123/69 01/10/25 22:45 Pulse Oximetry 100 01/10/25 22:45 Oxygen Delivery Room Air 01/10/25 20:14 MDM - Abdominal Pain MDM Narrative Medical decision making narrative: Patient is a 19-year-old female who presents to the ER with generalized abdominal pain and irregular bowel movements. She reports the pain started 2-3 months ago but has become worse, especially over the last 2 weeks. Patient denies any urinary symptoms, recent fevers, dietary changes, or acute back pain. She endorses a history asthma and recent hip surgery. Patient reports when she has bowel movements they are firm and she has to ?force them out. Labs Ordered: CBC, CMP, lipase, UA Imaging Ordered: CT abdomen pelvis Medications Ordered: None necessary Results: Patient's CT scan indicates The lung bases are clear. The liver parenchyma is unremarkable. No intrahepatic mass or ductal dilatation is evident. The gallbladder is unremarkable. The pancreas and spleen are normal in appearance. The adrenal glands are symmetric in size. The kidneys demonstrate symmetric uptake and excretion of contrast. No cystic mass is evident. There is no solid mass. There is no hydronephrosis. Evaluation of the stomach and bowel loops are limited due to lack of oral contrast. Fecal load throughout the colon suggestive of constipation. Appendix is not visualized. Correlate clinically to exclude appendicitis. The bladder and rectum are normal. There is a 6.6 x 4 cm left ovarian cyst. No free intraperitoneal fluid or air is evident. There is no significant retroperitoneal lymphadenopathy. The aorta, visceral vessels and renal arteries demonstrate normal caliber and patency. The lower thoracic and lumbar vertebrae are in normal alignment. Diagnosis: Constipation, left ovarian cyst Patient Education/Shared MDM: Results of lab work and imaging shared with patient. She was advised to take ibuprofen as needed for lower abdominal pain. Patient may take MiraLax as needed for constipation. She was advised to follow-up with her OBGYN as soon as possible. Patient strongly advised to maintain hydration status upon discharge. She will be discharged home with a prescription for MiraLax. Strict return precautions provided. Patient verbalized understanding and is in agreement with plan. Vital signs stable at time of discharge. All questions answered. Differential Diagnosis Differential diagnosis: Likely abdominal pain, acute appendicitis, constipation, gastroenteritis, small bowel obstruction and other (Ovarian cyst) Lab Data Attestation: I reviewed the patient's lab results. 01/10/25 20:50 01/10/25 20:50 Labs: Lab Results 01/10/25 01/10/25 Range/Units 20:50 20:54 WBC 7.6 (4.5-10.0) K/mm3 RBC 3.79 L (4.2-5.4) M/mm3 Hgb 11.6 L (12.0-15.0) g/dL Hct 34.8 L (37.0-47.0) % MCV 91.8 (80-100) fl MCH 30.6 (26-34) pg MCHC 33.3 (32-36) g/dl RDW 11.9 (11.5-14.5) % Plt Count 300 (150-375) k/mm3 MPV 9.6 (7.4-10.4) fl Immature Gran % (Auto) 0.3 (0-0.5) % Neut % (Auto) 52.3 (45.5-73.1) % Lymph % (Auto) 37.6 (18.3-44.2) % [place] % (Auto) 7.9 (2.6-8.5) % Eos % (Auto) 1.2 (0-4.4) % Baso % (Auto) 0.7 (0.2-1.2) % Lymph # (Auto) 2.86 (0.9-3.2) K/mm3 [place] # (Auto) 0.6 (0.1-0.6) K/mm3 Eos # (Auto) 0.1 (0-0.3) K/mm3 Baso # (Auto) 0.1 (0.0-0.1) K/mm3 Abs Immat Gran (auto) 0.02 (0.00-0.031) K/mm3 Absolute Neuts (auto) 4.0 (1.3-6.7) K/mm3 Absolute Nucleated RBC 0.000 (0.0-0.012) K/mm3 Nucleated RBC % 0.0 (0.0-0.2) % Sodium 136 (134-143) mmol/L Potassium 3.7 (3.4-5.0) mmol/L Chloride 103 (98-107) mmol/L Carbon Dioxide 25 (22-30) mmol/L Anion Gap 8 (4-12) mmol/L BUN 8 (8-21) mg/dL Creatinine 0.63 L (0.7-1.0) mg/dL Estim Creat Clear Calc 115 ml/min Estimated GFR > 60 (59 - ) Glucose 95 (65-110) mg/dL Calcium 9.4 (8.9-10.7) mg/dL Total Bilirubin 0.4 (0.2-1.3) mg/dL AST 40 H (14-36) U/L ALT 17 (6-35) U/L Alkaline Phosphatase 51 (45-116) U/L Total Protein 7.7 (6.3-8.6) g/dL Albumin 4.4 (3.7-5.6) g/dL Lipase 52 (23-300) U/L Urine Color Yellow (Yellow) Urine Appearance Clear (Clear) Urine pH 7.0 (5.0-9.0) Ur Specific [place] 1.009 (1.001-1.035) Urine Protein Negative (Negative) mg/dL Urine Glucose (UA) Negative (Negative) mg/dL Urine Ketones Negative (Negative) mg/dL Ur Blood (Man) Negative (Negative) Urine Nitrate Negative (Negative) Urine Bilirubin Negative (Negative) Urine Urobilinogen 0.2 (<2.0) mg/dL Add Ur Microanalysis Reviewed Leukocyte Esterase Rfl 2+ H (Negative) JUDIE/UL Urine RBC 0-2 (0-2) /hpf Urine WBC 0-5 (0-3) /hpf Ur Squamous Epith Cells Occasional (Few) /hpf Urine Bacteria 1+ H /hpf Urine Casts 0-2 POC Urine HCG, Qual Negative (Negative) Imaging Data Attestation: I personally reviewed and interpreted this imaging study as follows: Radiologist's impression: ITS Impressions Abdomen/Pelvis CT 01/10/25 22:11 IMPRESSION: Marked constipation. Left ovarian cyst measures 6.6 x [address] scans at this facility are performed using low dose modulation techniques as appropriate to perform exam including the following: automated exposure control; use of iterative reconstruction technique; adjustment of the mA and/or kV according to patient size (this includes techniques or standardized protocols for targeted exams where dose is matched to indication/reason for exam). Discharge Plan Discharge Clinical Impression: Ovarian cyst, Constipation Patient Disposition: Home Condition: Stable Instructions: Antibiotic Form, Ovarian Cyst (ED), Constipation (ED) Additional Instructions: Please return to the ER with any worsening symptoms. Follow-up with your OBGYN as soon as possible for re-evaluation. You may take Tylenol and ibuprofen together for pain control. Please take MiraLax as needed to treat constipation. Remember to drink lots of water. Patient Language: Bahraini Prescriptions: New polyethylene glycol 3350 [Miralax] 17 gram powder in packet 17 g PO BID Qty: 30 0RF No Action albuterol sulfate 90 mcg/actuation HFA aerosol inhaler INHALATION Dulera 200-5 mcg/actuation HFA aerosol inhaler INHALATION Spiriva Respimat 1.25 mcg/actuation mist INHALATION Follow-up/Referrals: PHYSICIAN,HEATSET WINDER OPERATOR [Primary Care Provider, Internal Medicine] Time of Disposition: 23:24
--- OUTSIDE RECORDS SUMMARY | 2025-01-10 21:29 | XMS_ITS | Encounter Summary ---
Author Organization [facility] Address [address] [place] [address] Care Team Providers Care Type Caster Name Role Phone Unavailable Primary Care Provider Unavailabl e Encounter Details Date Type Department Care Team (Late st Contact Info) Description 01/01/2007 [place] Conversion Encounter [facility] Social History Tobacco Use Types Packs/Day Years Used Date Smoking Tobacco: Never Assessed Comments Unknown Sex and Gender Information Value Date Recorded Sex Assigned at Not on file Legal Sex Female 8:24 PM CDT Gender Identity Not on file Sexual Orientation Not on file documented as of this encounter Progress Notes * [facility] 6:09 AM CDT The [...]
--- OUTSIDE RECORDS SUMMARY | 2025-01-10 21:29 | XMS_ITS | Encounter Summary ---
Author Organization [facility] Address [address] [place] [address] Care Team Providers Care Wafer Fabricator Name Role Phone Unavailable Primary Care Provider Unavailabl e Encounter Details Date Type Department Care Team (Late st Contact Info) Description 08/13/2006 [place] Conversion Encounter [facility] Social History [...] MEDS, status: NEW HISTORY, 2005. VITALS: WEIGHT: [id number]. LENGTH: 30 1/4in. HEAD CIRCUMFERENCE: 49.5cm. CHIEF [...]
--- OUTSIDE RECORDS SUMMARY | 2025-01-10 21:29 | XMS_ITS | Encounter Summary ---
Author Organization [facility] Address [address] [place] [address] Care Team Providers Care Energy Conservation Engineer Name Role Phone Unavailable Primary Care Provider Unavailabl e Encounter Details Date Type Department Care Team (Late st Contact Info) Description 2005 [place] Conversion Encounter [facility] Social History [...] 09/02/2011 6:09 AM CDT PATIENT'S HOME PHONE: [phone] PATIENT'S WORK PHONE: DATE: 2005. TIME OF CALL: 10:38:27 AM. PATIENT GENERATED CALL: CALL FROM: Patient's mother.-MAURICE- PT NEEDS TO HAVE PKU REPEATED THE ORDER NEEDS TO BE FAXED [employer] [facility] [phone]. PLEASE ADVISE CAN REACH MOM @[phone]. The call was taken by Rossy Dias. Order faxed to [facility]. JLangLPN The call was returned by [...] a rattle briefly, Palmar grasp fading. (LANGUAGE) [place], listens to watt, direct regard, responds to loud sounds and is beginning to distinguish and respond more to parents than to others. (GROSS MOTOR) Holds head temporarily erect but unsteady when held upright. ALLERGIES: NKDA CURRENT MEDICATION LIST: NO MEDS, VITALS: WEIGHT: 58sxo32.0oz. LENGTH: 24.5in. HEAD CIRCUMFERENCE: 42cm. CHIEF COMPLAINT: [...]
--- OUTSIDE RECORDS SUMMARY | 2025-01-10 21:29 | XMS_ITS | Clinical Summary ---
Author Organization [facility] Address [address] [place] [address] Care Team Providers Care Washing Machine Loader Name Role Phone No, Physician Primary Care Provider [phone] Lisa Roth Unavailable [phone] Allergies No known active allergies Medications Dulera [...] Team Description 01/09/2025 1:15 PM CDT Therapy [facility] [address] [place] [phone] Foster, Selena, PT Tear of acetabular labrum, right, subsequent encounter (Primary Dx) 01/04/2025 Orders Only [facility] [address] [place] [phone] Foster, Selena, PT Tear of acetabular labrum, right, subsequent encounter (Primary Dx) 01/02/2025 7:00 AM CDT Therapy [facility] [address] [place] [phone] Foster, Selena, PT Tear of acetabular labrum, right, subsequent encounter (Primary Dx) 12/30/2024 12:00 PM CDT Therapy [facility] [address] [place] [phone] Foster, Selena, PT Tear of acetabular labrum, right, subsequent encounter (Primary Dx) 12/26/2024 1:15 PM CDT Therapy [facility] [address] [place] [phone] Foster, Selena, PT Tear of acetabular labrum, right, subsequent encounter (Primary Dx) 12/23/2024 7:00 AM CDT Therapy [facility] [address] [place] [phone] Foster, Selena, PT Tear of acetabular labrum, right, subsequent encounter (Primary Dx) 12/15/2024 1:15 PM CDT Therapy [facility] [address] [place] [phone] Randi Fiore, PT Tear of acetabular labrum, right, subsequent encounter (Primary Dx) 12/13/2024 3:30 PM CDT Office Visit [facility] Orthopedic and Sports Medicine [address] [place] [phone] Lisa Roth PA S/P hip arthroscopy (Primary Dx); Tear of right acetabular labrum, sequela 12/12/2024 1:15 PM CDT Therapy [facility] [address] [place] [phone] Randi Fiore, PT Tear of acetabular labrum, right, subsequent encounter (Primary Dx) 12/08/2024 11:30 AM CDT Therapy [facility] [address] [place] [phone] Randi Fiore, PT Tear of acetabular labrum, right, subsequent encounter (Primary Dx) 12/05/2024 1:15 PM CDT Therapy [facility] [address] [place] [phone] Selena Hutchison, PT Tear of acetabular labrum, right, subsequent encounter (Primary Dx) 12/01/2024 1:15 PM CDT Therapy [facility] [address] [place] [phone] Randi Fiore, PT Tear of acetabular labrum, right, subsequent encounter (Primary Dx) 11/29/2024 9:00 AM CDT Therapy [facility] [address] [place] [phone] Selena Hutchison, PT Tear of acetabular labrum, right, subsequent encounter (Primary Dx) 11/24/2024 10:15 AM CDT Therapy [facility] [address] [place] [phone] FosterWaynen, PT Tear of acetabular labrum, right, subsequent encounter (Primary Dx) 11/22/2024 8:30 AM CDT Therapy [facility] [address] [place] [phone] aRndi Fiore, PT Tear of acetabular labrum, right, subsequent encounter (Primary Dx) 11/17/2024 1:45 PM CDT Therapy [facility] [address] [place] [phone] Randi Fiore, PT Tear of acetabular labrum, right, subsequent encounter (Primary Dx) 11/15/2024 2:45 PM CDT Office Visit [facility] [address] [place] [phone] Lisa Roth PA S/P hip arthroscopy (Primary Dx); Tear of right acetabular labrum, sequela 11/14/2024 1:15 PM CDT Therapy [facility] [address] [place] [phone] Randi Fiore, PT Tear of acetabular labrum, right, subsequent encounter (Primary Dx) 11/10/2024 9:00 AM CDT Therapy [facility] [address] [place] [phone] Randi Fiore, PT Tear of acetabular labrum, right, subsequent encounter (Primary Dx) 11/08/2024 2:15 PM CDT Therapy [facility] [address] [place] [phone] Randi Fiore, PT Tear of acetabular labrum, right, subsequent encounter (Primary Dx) 11/04/2024 12:00 PM CDT Therapy [facility] [address] [place] [phone] Randi Fiore, PT Tear of acetabular labrum, right, subsequent encounter (Primary Dx) 11/04/2024 Plan of Care Documentation [facility] [address] [place] [phone] 11/03/2024 9:00 AM CDT Therapy [facility] [address] [place] [phone] Randi Fiore, PT Tear of acetabular labrum, right, subsequent encounter (Primary Dx) 11/01/2024 Telephone [facility] Medical [facility] Orthopedic and Sports Medicine [facility] [place] [phone] Tono Segura ATC 10/31/2024 12:00 PM CDT - 10/31/2024 3:00 PM CDT Surgery [facility] Operating Room [address] [place] [address] Gael Lynch MD Right hip arthroscopy, with femoroplasty, acetabuloplasty, labral repair 10/31/2024 12:00 PM CDT Anesthesia Event [facility] [address] [place] [address] Grayson Moscoso DO Kory, Christopher James, MD 10/31/2024 10:37 AM CDT - 10/31/2024 5:34 PM CDT Hospital Encounter [facility] [address] [place] [address] Gael Lynch MD Femoroacetabular impingement of right hip [M25.851] (Primary Dx); Tear of right acetabular labrum, initial encounter [S73.191A] Discharge Disposition: Discharge to home or self care 10/27/2024 1:49 PM CDT - 10/27/2024 11:59 PM CDT Hospital Encounter [facility] Radiology [address] [place], [place] [phone] Tear of right acetabular labrum, initial encounter; Femoroacetabular impingement of right hip Discharge Disposition: Discharge to home or self care 10/27/2024 Telephone [facility] Orthopedics and Sports Medicine [address] [place] [address] [address] [place] [address] Gael Lynch MD 10/26/2024 Orders Only [facility] Medicine [address] [place] [address] [address] [place] [address] Gael Lynch MD Femoroacetabular impingement of right hip (Primary Dx) 10/26/2024 Orders Only [facility] [address] [place] [address] [address] [place] [address] Gael Lynch MD Tear of right acetabular labrum, initial encounter (Primary Dx); Femoroacetabular impingement of right hip 10/19/2024 2:22 PM CDT - 10/19/2024 11:59 PM CDT Hospital Encounter [facility] [address] [place] [address] [address] [place] [phone] Discharge Disposition: Discharge to home or self care 10/19/2024 Orders Only [facility] [address] [place] [address] [address] [phone] Gael Lynch MD Labral tear of hip, degenerative (Primary Dx) 10/19/2024 Orders Only [facility] [address] [place] [address] [address] [address] Gael Lynch MD Labral tear of hip, degenerative (Primary Dx); Tear of right acetabular labrum, initial encounter 10/19/2024 Telephone [facility] [address] [place] [address] [address] [phone] Gael Lynch MD Surgical Clearance 10/17/2024 Results Follow-Up [facility] Medicine and Primary Care at [address] [place] [phone] Ralph Burden DO MRI Hip Arthrogram Right W Contrast 10/14/2024 12:51 PM CDT - 10/14/2024 11:59 PM CDT Hospital Encounter [facility] [address] [place] [address] Hip pain, chronic, right Discharge Disposition: Discharge to home or self care 10/14/2024 12:51 PM CDT - 10/14/2024 11:59 PM CDT Hospital Encounter [facility] [address] [place] [address] Hip pain, chronic, right Discharge Disposition: Discharge [...] 0 Growth Chart Information Age Height Weight [id number] th Percentile BMI Percentile Head Circum Head Circum Percentile Date 19 years 167.6 cm (5' 6) 59.4 kg (131 lb) 43.97%* 2024 19 years 167.6 cm (5' 6) 58.1 kg (128 lb) 37.71%* 2024 19 years 167.6 cm (5' 6) 58.2 kg (128 lb 4.9 oz) 38.49%* 2024 19 years 167.6 cm (5' 6) 59.9 kg (132 lb) 46.66%* 2024 * [facility] (Girls, 2-20 Years) Last Filed Vital Signs [...] history exists Medical Devices Implanted Type Area Interpretative Dancer Device Identifier Shelf Expiration Date Model / Serial / Lot [employer] [place] Knotless Tapered Suture Hip Fibertak 1.8mm Ar-3636h - [id number] Implanted:Qty: 1 on 10/31/2024 by Gael Lynch MD at [facility] Right: Hip [employer] [id number] 05/20/2029 AR-3636H / / [id number] [employer] [place] Knotless Tapered Suture Hip Fibertak 1.8mm Ar-3636h - [id number] Implanted:Qty: 1 on 10/31/2024 by Gael Lynch MD at [facility] Right: Hip [employer] [id number] 05/20/2029 AR-3636H / / [id number] [employer] [place] Knotless Tapered Suture Hip Fibertak 1.8mm Ar-3636h - [id number] Implanted:Qty: 1 on 10/31/2024 by Gael Lynch MD at [facility] Right: Hip [employer] [id number] 05/20/2029 AR-3636H / / [id number] Procedures Procedure Name Priority Date/Time Associated Diagnosis Comments FL FLUOROSCOPY < 1 HOUR IP Routine 10/31/2024 2:47 PM CDT XR HIP RIGHT 1 VIEW IP Routine 10/31/2024 2 :47 PM CDT AL AN ELECTIVE ENDOTRACHEAL AIRWAY Routine 10/31/2024 12:10 [...] Ralph Hernandez M.D. MF: [email or web address] Report ID: [id number] Reading Location: [id number] Procedure Note Ralph Hernandez MD - 11/01/2024 [...] Ralph Hernandez M.D. MF: [email or web address] Report ID: [id number] Reading Location: [place] [address] [place] Gael Lynch MD IMG XR PROCEDURES Final Resu lt * AL AN ELECTIVE ENDOTRACHEAL AIRWAY (10/31/2024 12:10 PM CDT) Narrative Gael Gayle CRNA - 10/31/2024 12:10 PM CDT Gael Gayle CRNA 10/31/2024 12:10 PM Airway Patient location: OR Urgency: elective Date/time: 10/31/2024 12:06 PM Indications for airway management: anesthesia Difficult airway: no Staff: Placed by: PATENT ATTORNEY: Gael Gayle CRNA Emergent airway documentation: Risks [...] is normal. No pelvic lymphadenopathy. Procedure Note Terernce Medina MD - 10/14/2024 EXAMINATION: 1. MRI [...] was obtained. Prior to beginning the procedure, [place] Protocol was performed to confirm the patient's [...] participated in the procedure. Dr. Derek M.D. (residential electrician) was present and participated in the procedure. [...] was obtained. Prior to beginning the procedure, [place] Protocol was performed to confirm the patient's [...] participated in the procedure. Dr. Derek M.D. (residential electrician) was present and participated in the procedure. [...] l Result from Last 3 Months Insurance [facility] BMI BENEFITS Member Subscriber Plan / Payer (Ef fective 2024-Present) Name:Alyssa Parker Relation to Subscriber:Self Name:Alyssa Parker Payer ID:[id number] Group ID:Not on file Type:BC OTHER Address: [place] [id number] [employer] [facility] [place] EXCHANGE Care Teams Washing Machine Loader Relationship Specialty Start Date End Date No, Physician PCP - General 10/04/24 Lisa Roth PA [address] [place] [address] [place] [address] Physician Back Seam Stitcher Orthopedic Surgery 10/31/24
--- OUTSIDE RECORDS SUMMARY | 2025-01-10 21:29 | XMS_ITS | Encounter Summary ---
Author Organization [facility] Address [address] [place] [address] Care Team Providers Care Enamel Burner Name Role Phone Unavailable Primary Care Provider [...]
--- OUTSIDE RECORDS SUMMARY | 2025-01-10 21:29 | XMS_ITS | Encounter Summary ---
Author Organization [facility] Address [address] [place] [address] Care Team Providers Care Insurance Account Manager Name Role Phone Unavailable Primary Care Provider Unavailabl e Encounter Details Date Type Department Care Team (Late st Contact Info) Description 2005 [place] Conversion Encounter [facility]Y CONVERSTION DEPT Social History [...]
--- OUTSIDE RECORDS SUMMARY | 2025-01-10 21:29 | XMS_ITS | Encounter Summary ---
Author Organization [facility] Address [address] [place] [address] Care Team Providers Care Inspector Tool Name Role Phone Unavailable Primary Care Provider Unavailabl e Encounter Details Date Type Department Care Team (Late st Contact Info) Description 02/15/2007 [place] Conversion Encounter [facility]Y CONVERSTION DEPT Social History [...] OF CALL: 02:23:14 PM. AGE: 18 months. [facility] [place] or (*88). PATIENT GENERATED CALL: CALL FROM: Patient's mother.MAURICE, , EXT [phone], SAYS PT HAS RED, GOOPY EYES FOR A COUPLE DAYS. DAYCARE CALLED MOM TO TAKE HER HOME TODAY. SHOULD SHE BE SEEN? PLEASE RETURN HER CALL. The call was taken by Sarita Spear. NURSE'S NOTES: Would you like me to call in eye gtts and give protocol or would you like her to be seen? brielle [facility] DOCTOR'S COMMENTS: DR. WOODS'S COMMENTS: We could [...]
--- OUTSIDE RECORDS SUMMARY | 2025-01-10 21:29 | XMS_ITS | Encounter Summary ---
Author Organization [facility] Address [address] [place] [address] Care Team Providers Care Image Editor Name Role Phone Unavailable Primary Care Provider Unavailabl e Encounter Details Date Type Department Care Team (Late st Contact Info) Description 02/18/2006 [place] Conversion Encounter [facility] CONVERSTION DEPT Social History [...] MEDS, status: NEW HISTORY, 2005. VITALS: WEIGHT: [id number]. LENGTH: 27 1/2in. HEAD CIRCUMFERENCE: 45.5cm. HEAD CIRCUMFERENCE: 46.8cm. PREVENTIVE HEALTH MAINTENANCE TIPP SAFETY HANDOUT PROVIDED TO PARENT/RESPONSIBLE CONSTITUTION PARTY Due on 2005. Date performed 02/18/2006 [...]
--- OUTSIDE RECORDS SUMMARY | 2025-01-10 21:29 | XMS_ITS | Encounter Summary ---
Author Organization [facility] Address [address] [place] [address] Care Team Providers Care After School Counselor Name Role Phone Unavailable Primary Care Provider Unavailabl e Encounter Details Date Type Department Care Team (Late st Contact Info) Description 10/09/2006 [place] Conversion Encounter [facility]Y CONVERSTION DEPT Social History [...]
--- OUTSIDE RECORDS SUMMARY | 2025-01-10 21:29 | XMS_ITS | Encounter Summary ---
Author Organization [facility] Address [address] [place] [address] Care Team Providers Care Rental Representative Name Role Phone Unavailable Primary Care Provider [...] 09/02/2011 6:09 AM CDT PATIENT'S HOME PHONE: [phone] PATIENT'S WORK PHONE: PRACTICE GENERATED CALL: The [...]
--- OUTSIDE RECORDS SUMMARY | 2025-01-10 21:29 | XMS_ITS | Encounter Summary ---
Author Organization [facility] Address [address] [place] [address] Care Team Providers Care Construction Assistant Name Role Phone Unavailable Primary Care Provider Unavailabl e Encounter Details Date Type Department Care Team (Late st Contact Info) Description 2005 [place] Conversion Encounter [facility] CONVERSTION DEPT Social History [...] HISTORY: :. [facility]OSP[facility]: [facility] LABOR & DELIVERY: METHOD OF DELIVERY: Repeat [...]
--- OUTSIDE RECORDS SUMMARY | 2025-01-10 21:29 | XMS_ITS | Encounter Summary ---
Author Organization [facility] Address [address] [place] [address] Care Team Providers Care Gate Keeper Name Role Phone Unavailable Primary Care Provider Unavailabl e Encounter Details Date Type Department Care Team (Late st Contact Info) Description 11/14/2006 [place] Conversion Encounter [facility] CONVERSTION DEPT Social History [...]
--- OUTSIDE RECORDS SUMMARY | 2025-01-10 21:29 | XMS_ITS | Clinical Summary ---
Author Organization [facility] Address [address] [place] [address] Care Team Providers Care Director Inbound Sales Name Role Phone Unavailable Primary Care Provider [...]
--- OUTSIDE RECORDS SUMMARY | 2025-01-10 21:29 | XMS_ITS | Encounter Summary ---
Author Organization [facility] Address [address] [place] [address] Care Team Providers Care Coloring Checker Name Role Phone Unavailable Primary Care Provider Unavailabl e Encounter Details Date Type Department Care Team (Late st Contact Info) Description 05/21/2006 [place] Conversion Encounter [facility] CONVERSTION DEPT Social History [...] MEDS, status: NEW HISTORY, 2005. VITALS: WEIGHT: [id number]. LENGTH: 29 1/4in. HEAD CIRCUMFERENCE: 48.8cm. PREVENTIVE [...]
--- OUTSIDE RECORDS SUMMARY | 2025-01-10 21:29 | XMS_ITS | Clinical Summary ---
Author Organization [facility] Address [address] [place] [address], [facility] [address] [place] [address] Phone Care Team Providers Care Software Engineer Advisor Name Role Phone No Pcp, General Primary [...] , 03/20/2022, 01/09/2021, Additional history exists Insurance [facility] Care Teams Software Engineer Advisor Relationship Specialty Start Date End Date No Pcp, General [address] [place] [address] PCP - General 08/09/24
--- OUTSIDE RECORDS SUMMARY | 2025-01-10 21:29 | XMS_ITS | Encounter Summary ---
Author Organization [facility] Address [address] [place] [address] Care Team Providers Care Safety Representative Name Role Phone Unavailable Primary Care Provider Unavailabl e Encounter Details Date Type Department Care Team (Late st Contact Info) Description 2005 [place] Conversion Encounter [facility] CONVERSTION DEPT Social History [...] NO MEDS, status: NEW HISTORY, 2005. WEIGHT: [id number] INTERVAL BETWEEN MEASUREMENTS: 7 days. RATE OF [...]
--- OUTSIDE RECORDS SUMMARY | 2025-01-10 21:29 | XMS_ITS | Encounter Summary ---
Author Organization [facility] Address [address] [place] [address] Care Team Providers Care Slot Ambassador Name Role Phone Unavailable Primary Care Provider Unavailabl e Encounter Details Date Type Department Care Team (Late st Contact Info) Description 04/10/2007 [place] Conversion Encounter [facility] CONVERSTION DEPT Social History [...] status: NEW HISTORY, 2005. VITALS: \ WEIGHT: [id number]. LENGTH: 34 1/2in. HEAD CIRCUMFERENCE: 51.5cm. HISTORY OF PRESENT ILLNESS: congested cough, started night, afebrile, The patient was checked in by MIHCELLE Carty. GENERAL: Healthy appearing, alert, normally nourished, [...] [place] [facility] [facility] or (*53). PATIENT GENERATED CALL: CALL FROM: Patient's mother.MEL (C)[phone] 20M/25# NKDA PT HAS DIAPER RASH SINCE [...] to stop using the scented wipes. brielle flying squad worker Electronically Signed by: Mehdi Castro M.D. on Thursday, April 19, 2007 Received for:ALLSCRIPTS TEST Sep 02 2011 6:09AM Central Standard Time documented in this encounter Plan of Treatment Not on file documented as of this encounter Visit Diagnoses Not on filedocumented in this encounter
--- OUTSIDE RECORDS SUMMARY | 2025-01-10 21:29 | XMS_ITS | Encounter Summary ---
Author Organization [facility] Address [address] [place] [address] Care Team Providers Care Paint Spray Tender Name Role Phone Unavailable Primary Care Provider Unavailabl e Encounter Details Date Type Department Care Team (Late st Contact Info) Description 03/18/2006 [place] Conversion Encounter [facility]Y CONVERSTION DEPT Social History [...]
--- OUTSIDE RECORDS SUMMARY | 2025-01-10 21:30 | XMS_ITS | Encounter Summary ---
Author Organization [facility] Address [address] [place] [address] Care Team Providers Care Paper Conservator Name Role Phone Unavailable Primary Care Provider Unavailabl e Encounter Details Date Type Department Care Team (Late st Contact Info) Description 07/17/2007 [place] Conversion Encounter [facility]Y CONVERSTION DEPT Social History [...]
--- OUTSIDE RECORDS SUMMARY | 2025-01-10 21:30 | XMS_ITS | Encounter Summary ---
Author Organization [facility] Address [address] [place] [address] Care Team Providers Care Cone Operator Name Role Phone Unavailable Primary Care Provider Unavailabl e Encounter Details Date Type Department Care Team (Late st Contact Info) Description 09/11/2007 [place] Conversion Encounter [facility]Y CONVERSTION DEPT Social History [...] MEDS, status: NEW HISTORY, 2005. VITALS: WEIGHT: [id number]. LENGTH: 35 3/4in. HEAD CIRCUMFERENCE: 52cm. CHIEF [...]
--- OUTSIDE RECORDS SUMMARY | 2025-01-10 21:30 | XMS_ITS | Encounter Summary ---
Author Organization [facility] Address [address] [place] [address] Care Team Providers Care Fire Official Name Role Phone Unavailable Primary Care Provider Unavailabl e Encounter Details Date Type Department Care Team (Late st Contact Info) Description 11/07/2008 [place] Conversion Encounter [facility]Y CONVERSTION DEPT Social History [...] patient lives with parents, siblings. DAY CARE: [facility]. PARENTS WORKING: SCHOOL: Adequate [...]
--- OUTSIDE RECORDS SUMMARY | 2025-01-10 21:30 | XMS_ITS | Encounter Summary ---
Author Organization [facility] Address [address] [place] [address] Care Team Providers Care Silver Chaser Name Role Phone Michelle Asher MD Primary Care Provider +1- [phone] Reason for Referral * Specialty Diagnoses / Procedures Referred By Contac t Referred To Contact [facility] [place] [address] [facility] [address] [place] [address] Referral ID Status Reason Start Date Expiration Date Visits Re quested Visits Authorized TECHNOLOGIST Encounter Details Date Type Department Care Team (Late st Contact Info) Description 02/23/2023 External Result Scan [facility] [address] [facility] [address] [place] [phone] Provider, MD Ricky [facility] [place] [address] Social History Tobacco Use Types [...] on filedocumented in this encounter Care Teams Silver Chaser Relationship Specialty Start Date End Date Michelle Asher MD [address] [address] PCP - General Pediatrics 12/04/14 03/02/24 documented as of this encounter
--- OUTSIDE RECORDS SUMMARY | 2025-01-10 21:30 | XMS_ITS | Encounter Summary ---
Author Organization [facility] Address [address] [place] [address] Care Team Providers Care Food Service Assistant Name Role Phone Unavailable Primary Care Provider Unavailabl e Encounter Details Date Type Department Care Team (Late st Contact Info) Description 01/04/2010 [place] Conversion Encounter [facility] CONVERSTION DEPT Social History [...] 74/52 Right Arm Sitting VS-HEIGHT: 43in VS-WEIGHT: 68shg3oh ALLERGIES: NKDA GENERAL CHIEF COMPLAINT: Mom wonders [...]
--- OUTSIDE RECORDS SUMMARY | 2025-01-10 21:30 | XMS_ITS | Encounter Summary ---
Author Organization [facility] Address [address] [place] [address] Care Team Providers Care Fish Tender Name Role Phone Michelle Asher MD Primary Care Provider +1- [phone] Encounter Details Date Type Department Care Team (Late st Contact Info) Description 12/25/2021 Orders Only Pending Sale To [facility] [address] [place] [address] Michelle sAher MD [address] [place], [place] [address] Social History Tobacco Use Types Packs/Day Years [...] PM CDT Narrative 12/25/2021 5:[address] PM [address] NAME: ALYSSA SMITH /AGE/SEX: 2005 PHYSICIAN: Michelle Asher M.D. ADMIT DATE: UNIT #: [id number] DIS DATE: LOC/RM/BED: D[facility]- [facility] RAD/XR CHEST PA LAT 2 VIEWS : [id number] ORDER DATE: 12/25/21 REPORT # : [id number] CHEST RADIOGRAPH AP/LATERAL 2 VIEWS Exam Date/Time: [...] UNTIL SIGNED S: Signed 15 15 PS REPORT#:[id number] CC: Michelle Asher M.D. of 1 Procedure Note System, Provider Not In - 12/25/[address] NAME: ALYSSA SMITH GDOB/AGE/SEX: 2005 PHYSICIAN: Michelle Asher M.D. ADMITDATE: UNIT #: [id number] DISDATE: /RM/BED: D[facility]- [facility] RAD/XR CHEST PA LAT 2 VIEWS : [id number] ORDER DATE: 12/25/21 REPORT # : [id number] CHEST RADIOGRAPH AP/LATERAL 2 VIEWS Exam Date/Time: [...] UNTIL SIGNED S: Signed 15 15 PS REPORT#:[id number] CC: Michelle Asher M.D. of 1 Michelle Asher MD [facility] DIAGNOSTIC [place] ORDERABLES documented in this encounter Visit Diagnoses Not on filedocumented in this encounter Additional Health Concerns Infection Onset Date Last Indicated Resolved Time COVID-19 Suspected 12/31/2021 12/31/2021 2 10:54 PM CDT COVID-19 Suspected 07/22/2022 07/22/2022 3 11:20 PM CDT documented as of this encounter Care Teams Fish Tender Relationship Specialty Start Date End Date Michelle Asher MD [address] [address] PCP - General Pediatrics 12/04/14 03/02/24 documented as of this encounter
--- OUTSIDE RECORDS SUMMARY | 2025-01-10 21:30 | XMS_ITS | Encounter Summary ---
Author Organization [facility] Address [address] [place] [address] Care Team Providers Care Gas Charger Name Role Phone Unavailable Primary Care Provider Unavailabl e Encounter Details Date Type Department Care Team (Late st Contact Info) Description 02/06/2010 [place] Conversion Encounter [facility] CONVERSTION DEPT Social History [...]
--- OUTSIDE RECORDS SUMMARY | 2025-01-10 21:30 | XMS_ITS | Encounter Summary ---
Author Organization [facility] Address [address] [place] [address] Care Team Providers Care Svp Digital Ad Sales Name Role Phone Unavailable Primary Care Provider Unavailabl e Encounter Details Date Type Department Care Team (Late st Contact Info) Description 06/05/2008 [place] Conversion Encounter [facility]Y CONVERSTION DEPT Social History [...]
--- OUTSIDE RECORDS SUMMARY | 2025-01-10 21:30 | XMS_ITS | Encounter Summary ---
Author Organization [facility] Address [address] [place] [address] Care Team Providers Care Ui Programmer Name Role Phone Unavailable Primary Care Provider Unavailabl e Encounter Details Date Type Department Care Team (Late st Contact Info) Description 07/05/2007 [place] Conversion Encounter [facility] CONVERSTION DEPT Social History [...] (sister tested positive for strep yesterday at [facility]). ALLERGIES: NKDA MEDICATIONS: NON-ASPIRIN CHILDRENS ORAL SUSPENSION 160 MG/5ML, status: NEW HISTORY, 07/05/2007. VITAL SIGNS: VS-TEMPERATURE: 97.6??f Axillary VS-WEIGHT: [id number] TESTS IN OFFICE Rapid Strep Antigen is: [...]
--- OUTSIDE RECORDS SUMMARY | 2025-01-10 21:30 | XMS_ITS | Encounter Summary ---
Author Organization [facility] Address [address] [place] [address] Care Team Providers Care Disk Sharpener Name Role Phone Michelle Asher MD Primary Care Provider +1- [phone] Reason for Referral * Specialty Diagnoses / Procedures Referred By Contac t Referred To Contact [facility] [place] [address] [facility] [address] [place] [address] Referral ID Status Reason Start Date Expiration Date Visits Re quested Visits Authorized Encounter Details Date Type Department Care Team (Late st Contact Info) Description 12/19/2021 External Result Scan [facility] [address] [facility] [address] [place] [phone] ProviderRicky MD [facility] [place] [address] Social History Tobacco Use Types [...] documented as of this encounter Care Teams Disk Sharpener Relationship Specialty Start Date End Date Michelle Asher MD [address] [address] PCP - General Pediatrics 12/04/14 03/02/24 documented as of this encounter
--- OUTSIDE RECORDS SUMMARY | 2025-01-10 21:30 | XMS_ITS | Clinical Summary ---
Author Organization [facility] Address [address] [place] [address] Care Team Providers Care Charge Weigher Name Role Phone Unavailable Primary Care Provider Unavailabl e Source Comments [facility] is the largest [facility] health system based in [place]. We offer more than 150 locations around the [facility], in communities large and small, so health care access is convenient. With 19 [facility] and [facility] hospitals, over 25 long-term care and longterm facilities, dozens of physician offices and health centers, home care, hospice, behavioral health services and more. Currently six of our Hospitals are live on the [employer] system, they are: [facility] Allergies No known active allergies Medications Medication [...] 11/04/2016 MENVEO MENINGOCOCCAL [id number] 08/27/2022 MMR 10/24/2010,08/13/2006 Jule Game-BioZiploop COVID-19 vac cine mRNA (PF) 30 mcg/0.3mL (12+years) 04/30/2021,09/06/2020,08/16/2020 Pneumococcal Conjugate 13-Va lent ([id number]) 08/13/2006,05/21/2006,2005,10/21 Varicella 10/24/2010,08/13/2006 tdap 11/04/2016 Family History [...] 33.62% 08/12 11:29 AM CDT Growth Chart: [facility] (Girls, 2- 20 Years) Plan of [...] Trachomatis by PCR Not Detected Not Detect [facility] STI2 COMMENT see below [facility] Comment: Testing performed using the Alinity m STI AMP Kit (Heliae). False negative results of Not Detected can [...] GONORRHOEAE BY PCR Not Detected Not Detect [facility] 08/13/2023 11:4 1 AM CDT Michelle Asher MD MICROBIOLOGY - GEN ERAL ORDERABLES [facility] from Last 3 Months or Most Recently Relevant to Health Maintenance
--- OUTSIDE RECORDS SUMMARY | 2025-01-10 21:30 | XMS_ITS | Encounter Summary ---
Author Organization [facility] Address [address] [place] [address] Care Team Providers Care Shot Polisher And Inspector Name Role Phone Unavailable Primary Care Provider Unavailabl e Encounter Details Date Type Department Care Team (Late st Contact Info) Description 05/25/2008 [place] Conversion Encounter [facility]Y CONVERSTION DEPT Social History [...] status: NEW PRESCRIPTION, 05/25/2008, Comment: KERWIN # [id number]. Patient is to return on an as [...]
--- OUTSIDE RECORDS SUMMARY | 2025-01-10 21:30 | XMS_ITS | Encounter Summary ---
Author Organization [facility] Address [address] [place] [address] Care Team Providers Care Fitting Room Attendant Name Role Phone Unavailable Primary Care Provider Unavailabl e Encounter Details Date Type Department Care Team (Late st Contact Info) Description 06/09/2008 [place] Conversion Encounter [facility]Y CONVERSTION DEPT Social History [...]
--- OUTSIDE RECORDS SUMMARY | 2025-01-10 21:30 | XMS_ITS | Encounter Summary ---
Author Organization [facility] Address [address] [place] [address] Care Team Providers Care Safety Investigator/Cause Analyst Name Role Phone Unavailable Primary Care Provider Unavailabl e Encounter Details Date Type Department Care Team (Late st Contact Info) Description 08/24/2009 [place] Conversion Encounter [facility] CONVERSTION DEPT Social History [...] BEEN FAXED The patient's pharmacy is [facility]. Patient is instructed to call with [...]
--- OUTSIDE RECORDS SUMMARY | 2025-01-10 21:30 | XMS_ITS | Encounter Summary ---
Author Organization [facility] Address [address] [place] [address] Care Team Providers Care Rag Room Supervisor Name Role Phone Unavailable Primary Care Provider Unavailabl e Encounter Details Date Type Department Care Team (Late st Contact Info) Description 10/24/2010 [place] Conversion Encounter [facility] CONVERSTION DEPT Social History [...] MILLILITERS, SUBCUTANEOUS INJECTION, Right Thigh, [facility]; Verbal consent obtained, literature given; Varicella (Chicken Pox), 0.5, MILLILITERS, SUBCUTANEOUS INJECTION, Right Thigh, [facility]; Verbal consent obtained, literature given; ANTICIPATORY [...]
[2025-01-10] MEDS: SODIUM CHLORIDE 0.9% IV 1,000 ML 999 ML IV CONT (21:49)
[2025-01-10 22:45] VITALS: BP 123/69; PULSE 91; RESP 14; O2SAT 100
== END 2025-01-10 23:35 | disposition home or self-care (01) ==
PROVIDERS: Student in an Organized Health Care Education/Training Program; Emergency Provider Registered Nurse
DX: K59.00 Constipation, unspecified (principal); N83.202 Unspecified ovarian cyst, left side
CPT/HCPCS: 36415; 74177; 80053; 81001; 81025; 83690; 85025; 87086; 96360; 99284; J7030; Q9967